=== PATIENT | female | born 1950 | race Caucasian/White ===

== ENCOUNTER 2016-07-02 07:45 | Emergency (ER) | payer MEDICARE ==
[2016-07-02 08:09] VITALS: RESP 18
[2016-07-02] MEDS: NITROGLYCERIN SL TABS 0.4 MG TAB SUBLINGUAL STA ×2 (08:09→08:14)
[2016-07-02 08:27] LABS: Basophils % (A) 1 %; CH 28.9; CHCM 32.7; Eosinophils # (A) 0.1 k/uL (0-0.7); Eosinophils % (A) 3 %; HCT 41.9 % (34.0-46.0); HDW 2.33; HGB 13.9 gm/dL (11.4-16.0); Luc # (Auto) 0.12; Luc % (Auto) 2; Lymphocytes # (A) 1.2 k/uL (1.0-4.8); Lymphocytes % (A) 24 %; MCH 29.4 pg (25.0-35.0); MCHC 33.2 g/dL (31.0-37.0); MCV 88.8 fL (80.0-100.0); Monocytes # (A) 0.4 k/uL (0-1.0); Monocytes % (A) 7 %; Neutrophils # (A) 3.2 k/uL (1.3-7.7); Neutrophils % (A) 63 %; RBC 4.72 m/uL (3.80-5.40); RDW 13.7 % (11.5-15.5); WBC (Perox) 5.02
--- NOTE | 2016-07-02 08:30 | XR ---
EXAMINATION TYPE: XR chest 2V DATE OF EXAM: 07/02/2016 8:26 AM HISTORY: Chest Pain. REFERENCE: Previous study dated 12/24/2013. FINDINGS: The lungs are clear. Pleural spaces are clear. The heart is not enlarged. IMPRESSION: NO ACTIVE INTRATHORACIC DISEASE.
[2016-07-02 08:38] LABS: ALT 28 U/L (9-52); AST 27 U/L (14-36); Alkaline Phosphatase 74 U/L (38-126); Anion Gap 10 mmol/L; Blood Urea Nitrogen 26 mg/dL (7-17); Calcium 9.5 mg/dL (8.4-10.2); Carbon Dioxide 26 mmol/L (22-30); Chloride 108 mmol/L (98-107); Glucose 92 mg/dL (74-99); Magnesium 1.9 mg/dL (1.6-2.3); Non-African American GFR(MDRD) >60 (>60 ml/min/1.73 sqM); Potassium 4.3 mmol/L (3.5-5.1); Sodium 144 mmol/L (137-145); Total Bilirubin 0.6 mg/dL (0.2-1.3); Total Protein 7.1 g/dL (6.3-8.2)
[2016-07-02 08:44] LABS: Prothrombin Time 10.2 sec (9.0-12.0)
[2016-07-02 08:58] LABS: Creatine Kinase 48 U/L (30-135)
[2016-07-02 09:11] LABS: Creatine Kinase MB 0.4 ng/mL (0.0-2.4); Troponin I <0.012 ng/mL (0.000-0.034)
--- NOTE | 2016-07-02 09:15 | ED ---
Chest Pain HPI - General Chief Complaint: Chest Pain Stated Complaint: chest pain Time Seen by Provider: 07/02/16 07:55 Source: patient, RN notes reviewed Mode of arrival: wheelchair Limitations: no limitations - History of Present Illness Initial Comments: This is a 66-year-old female who presents with complaints of some left-sided chest pain. She states she was working out in her garden a lot recently the pain is dull she points to the left costochondral margin she denies any cough fevers chills sweats other symptoms pain is get worse with movement of her extremities. She has no known history of heart disease she is a nonsmoker. Pain is 3-4/10 in severity. No family history of early heart disease. MD Complaint: chest pain - Related Data Home Medications Medication Instructions Recorded Confirmed Cholecalciferol [Vitamin D3] 1,000 unit PO DAILY 07/02/16 07/02/16 Cinnamon Bark [Cinnamon] 500 mg PO DAILY 07/02/16 07/02/16 L.acidoph,Paracasei, B.lactis 1 cap PO DAILY 07/02/16 07/02/16 [Probiotic] [place]-3 Fatty Acids/Fish Oil [Fish 1 cap PO DAILY 07/02/16 07/02/16 Oil 1,000 mg Capsule] Ubidecarenone [Co Q-10] 100 mg PO DAILY 07/02/16 07/02/16 Vitamin B Complex 1 cap PO DAILY 07/02/16 07/02/16 Previous Rx's Medication Instructions Recorded Cyclobenzaprine [Flexeril] 10 mg PO TID #14 tab 07/02/16 Ibuprofen [Motrin] 800 mg PO Q6HR PRN #20 tab 07/02/16 Allergies Allergy/AdvReac Type Severity Reaction Status Date / Time No Known Allergies Allergy Verified 07/02/16 08:08 Review of Systems ROS Statement: Those systems with pertinent positive or pertinent negative responses have been documented in the HPI. ROS Other: All systems not noted in ROS Statement are negative. EKG Findings - EKG Results: EKG: interpreted by EDGARDO, sinus rhythm (Sinus rhythm rate 99627 QRS of 150 daily since QTC of 462/44 there is a left bundle-branch block pattern no acute ST-T wave changes patient states she does have a known bundle-branch block.) Past Medical History Past Medical History: No Reported History, GERD/Reflux History of Any Multi-Drug Resistant Organisms: None Reported Past Surgical History: Tonsillectomy Additional Past Surgical History / Comment(s): bilateral catarac implants Past Anesthesia/Blood Transfusion Reactions: No Reported Reaction Additional Past Anesthesia/Blood Transfusion Reaction / Comment(s): Never had blood transfusion Past Psychological History: No Psychological Hx Reported Smoking Status: Former smoker Past Alcohol Use History: None Reported Past Drug Use History: None Reported - Past Family History Mother Family Medical History: Coronary Artery Disease (CAD) Additional Family Medical History / Comment(s): CABG General Exam - General Exam Comments Initial Comments: This is a well-developed well-nourished awake alert oriented x 3 female Limitations: no limitations General appearance: alert, in no apparent distress Head exam: Present: atraumatic, normocephalic, normal inspection Eye exam: Present: normal appearance, PERRL, EOMI. Absent: scleral icterus, conjunctival injection, periorbital swelling ENT exam: Present: normal exam, mucous membranes moist Neck exam: Present: normal inspection. Absent: tenderness, meningismus, lymphadenopathy Respiratory exam: Present: normal lung sounds bilaterally, chest wall tenderness (Some mild discomfort over left costochondral margin). Absent: respiratory distress, wheezes, rales, rhonchi, stridor Cardiovascular Exam: Present: regular rate, normal rhythm, normal heart sounds. Absent: systolic murmur, diastolic murmur, rubs, gallop, clicks GI/Abdominal exam: Present: soft, normal bowel sounds. Absent: distended, tenderness, guarding, rebound, rigid Extremities exam: Present: normal inspection, full ROM, normal capillary refill. Absent: tenderness, pedal edema, joint swelling, calf tenderness Back exam: Present: normal inspection Neurological exam: Present: alert, oriented X3, CN II-XII intact Psychiatric exam: Present: normal affect, normal mood Skin exam: Present: warm, dry, intact, normal color. Absent: rash Course Vital Signs 07/02/16 07/02/16 07/02/16 07:46 08:08 08:13 Temperature 97.1 F L Pulse Rate 67 61 70 Respiratory 17 18 18 Rate Blood Pressure 189/74 168/77 168/81 O2 Sat by Pulse 98 98 96 Oximetry 07/02/16 08:17 Temperature Pulse Rate 68 Respiratory 18 Rate Blood Pressure 138/63 O2 Sat by Pulse 97 Oximetry Chest Pain MDM - MDM Review the x-ray shows no acute findings. I did review the findings with the patient and her . Patient is feeling somewhat improved she will be discharged presentation is currently consistent with costochondritis. She is follow-up with her doctor return if any problems. Disposition Clinical Impression: Chest wall syndrome, Costalchondritis Disposition: HOME SELF-CARE Condition: Good Instructions: Costochondritis (ED) Prescriptions: Cyclobenzaprine [Flexeril] 10 mg PO TID #14 tab Ibuprofen [Motrin] 800 mg PO Q6HR PRN #20 tab PRN Reason: Pain Referrals: Jesse Combs DO [Primary Care Provider] - 1-2 days
[2016-07-02 10:14] VITALS: BP 159/70; PULSE 54; TEMP 97.9
== END 2016-07-02 10:14 | disposition home or self-care (01) ==
LOC: EC 07:45
DX: M94.0 Chondrocostal junction syndrome [Tietze] (principal); R07.9 Chest pain, unspecified; Z87.891 Personal history of nicotine dependence; Z79.899 Other long term (current) drug therapy; Z82.49 Family history of ischemic heart disease and other diseases of the circulatory system
CPT/HCPCS: 36415; 71020; 80053; 82550; 82553; 83735; 84484; 85025; 85379; 85610; 85730; 93005; 99285

== ENCOUNTER 2016-08-07 12:49 | Emergency (ER) | payer MEDICARE ==
--- NOTE | 2016-08-07 13:36 | ED ---
Extremity Problem HPI - General Chief complaint: Extremity Problem,Nontraumatic Stated complaint: Foot pain Time Seen by Provider: 08/07/16 13:06 Source: patient Mode of arrival: ambulatory Limitations: no limitations - History of Present Illness Initial comments: Patient is a 66-year-old female presenting to the emergency department with complaints of left foot pain, swelling, and erythema. Patient states that one week ago she developed a prutitid rash in between her toes on her left foot. Patient states that the symptoms became worse with redness and swelling and she went to [facility] yesterday. Patient states she was diagnosed with tinea pedis and troponin X along with an antifungal cream. Patient states she started antibiotics at 2 PM yesterday. Patient states that today the redness and swelling of her left foot have gotten slightly worse progressing up her left foot. Patient states it hurts to ambulate. Patient is currently rating pain 5 out of 10. Patient describes pain as an ache and itching. Patient denies chills, fevers, nausea, vomiting, shortness of breath, abdominal pain, numbness or tingling. Patient denies similar symptoms in the past. MD Complaint: extremity pain, extremity swelling - Related Data Home Medications Medication Instructions Recorded Confirmed Cholecalciferol [Vitamin D3] 1,000 unit PO DAILY 07/02/16 07/02/16 Cinnamon Bark [Cinnamon] 500 mg PO DAILY 07/02/16 07/02/16 L.acidoph,Paracasei, B.lactis 1 cap PO DAILY 07/02/16 07/02/16 [Probiotic] [place]-3 Fatty Acids/Fish Oil [Fish 1 cap PO DAILY 07/02/16 07/02/16 Oil 1,000 mg Capsule] Ubidecarenone [Co Q-10] 100 mg PO DAILY 07/02/16 07/02/16 Vitamin B Complex 1 cap PO DAILY 07/02/16 07/02/16 Previous Rx's Medication Instructions Recorded Cyclobenzaprine [Flexeril] 10 mg PO TID #14 tab 07/02/16 Ibuprofen [Motrin] 800 mg PO Q6HR PRN #20 tab 07/02/16 Allergies Allergy/AdvReac Type Severity Reaction Status Date / Time No Known Allergies Allergy Verified 08/07/16 13:05 Review of Systems ROS Statement: Those systems with pertinent positive or pertinent negative responses have been documented in the HPI. ROS Other: All systems not noted in ROS Statement are negative. Past Medical History Past Medical History: No Reported History, GERD/Reflux, Osteoarthritis (OA) History of Any Multi-Drug Resistant Organisms: None Reported Past Surgical History: Tonsillectomy Additional Past Surgical History / Comment(s): bilateral catarac implants Past Anesthesia/Blood Transfusion Reactions: No Reported Reaction Additional Past Anesthesia/Blood Transfusion Reaction / Comment(s): Never had blood transfusion Past Psychological History: No Psychological Hx Reported Smoking Status: Former smoker Past Alcohol Use History: Daily Past Drug Use History: None Reported - Past Family History Mother Family Medical History: Coronary Artery Disease (CAD) Additional Family Medical History / Comment(s): CABG General Exam - General Exam Comments Initial Comments: GENERAL: Pt awake and alert, well-appearing, well-nourished, and in no acute distress. HEAD: Atraumatic, normocephalic. EYES: Pupils equal, round, and reactive to light, extraocular movements intact, sclera anicteric, conjunctiva are normal. ENT: Oropharynx clear without exudates. Moist mucous membranes. NECK:Normal range of motion, supple without lymphadenopathy. LUNGS: Breath sounds clear to auscultation bilaterally. No wheezes, rales, or rhonchi. HEART: Heart S1, S2, no S3 or S4. Regular rate and rhythm. No murmurs, rubs or gallops. ABDOMEN: Soft, nontender, nondistended, normoactive bowel sounds. No guarding, no rebound. No masses or organomegaly appreciated. Left lower extremity: Full range of motion. Erythema, swelling and tenderness to left foot especially to third and fourth toe on left foot progressing up to mid foot. Sensation grossly intact. No calf tenderness. No cyanosis. NEUROLOGICAL: Pt oriented x 3. No focal deficits noted. Strength and sensation grossly intact. PSYCH: Normal mood, normal affect. SKIN: Warm, dry, intact. Normal turgor. Limitations: no limitations Left Foot/Toe exam: Present: full ROM, tenderness, swelling, erythema. Absent: abrasion, laceration, ecchymosis, deformity, dislocation, foreign body, calcaneal tenderness, tenderness at base of 5th metatarsal, nail avulsion, subungual hematoma Neurovascular tendon exam: Present: no vascular compromise. Absent: pulse deficit, abnormal cap refill, motor deficit, sensory deficit, tendon deficit, extremity cold to touch, pallor, foot drop, significant pain with passive ROM of distal joint Course Vital Signs 08/07/16 13:02 Temperature 97.5 F L Pulse Rate 84 Respiratory 16 Rate Blood Pressure 135/64 O2 Sat by Pulse 97 Oximetry Medical Decision Making - Medical Decision Making Cellulitis to left foot. X-ray of left foot with evidence of diffuse soft tissue swelling with no acute fracture, subluxation, or dislocation. Patient instructed to continue Keflex and Bactrim, elevate left lower extremity, continue Tylenol or Motrin for pain. Patient instructed to return to the emergency department if swelling and redness do not improve or get worse in next 24 hours. Cellulitis outlined with marker prior to discharge. Discharge instructions and return parameters reviewed. - Radiology Data Radiology results: report reviewed X-ray left foot: Diffuse soft tissue swelling of the foot best seen on the lateral view. No acute fracture, subluxation, or dislocation. Tiny plantar calcaneal spur. Disposition Clinical Impression: Cellulitis of left foot Disposition: HOME SELF-CARE Condition: Good Instructions: Cellulitis (ED) Additional Instructions: Continue Keflex and Bactrim as previously prescribed. Elevate left lower extremity as much as possible. Continue Tylenol or Motrin for pain. Please return to the emergency department if swelling and redness did not improve, fevers, nausea, vomiting, or any other symptoms in next 24 hours. Follow-up with primary care physician as directed. Referrals: Jesse Combs DO [Primary Care Provider] - 1-2 days Time of Disposition: 13:59
--- NOTE | 2016-08-07 13:41 | XR ---
EXAMINATION TYPE: XR foot complete LT DATE OF EXAM: 08/07/2016 COMPARISON: NONE HISTORY: 66-year-old female with painful and swollen foot since yesterday TECHNIQUE: 3 views FINDINGS: Diffuse soft tissue swelling of the foot best seen on the lateral view. No acute fracture, subluxatio n, or dislocation. Tiny plantar calcaneal spur. IMPRESSION: Diffuse soft tissue swelling best seen on the lateral view. No acute osseous abnormality seen.
[2016-08-07 14:09] VITALS: BP 128/80; PULSE 80; RESP 18; TEMP 97.8
== END 2016-08-07 14:09 | disposition home or self-care (01) ==
LOC: EC 12:49
DX: L03.116 Cellulitis of left lower limb (principal); M19.90 Unspecified osteoarthritis, unspecified site; Z87.891 Personal history of nicotine dependence; Z79.899 Other long term (current) drug therapy
CPT/HCPCS: 99283

== ENCOUNTER 2016-08-12 08:35 | Inpatient (IN) | payer MEDICARE ==
[2016-08-12] MEDS ORDERED: SODIUM CHLORIDE 0.9% 1,000 ML IV STA (08:47)
[2016-08-12] MEDS ORDERED: methylPREDNISolone SOD SUCCI 125 MG/2 ML VIAL IV STA (08:47)
[2016-08-12] MEDS ORDERED: diphenhydrAMINE 50 MG/ML 1 ML VIAL IVP STA (08:47)
[2016-08-12] MEDS ORDERED: FAMOTIDINE 20 MG/2 ML VIAL IV STA (08:48)
--- NOTE | 2016-08-12 08:52 | ED ---
Skin/Abscess/FB HPI - General Chief complaint: Skin/Abscess/Foreign Body Stated complaint: Rash/ allergic reaction to new medication Time Seen by Provider: 08/12/16 08:42 Source: patient, RN notes reviewed Mode of arrival: ambulatory Limitations: no limitations - History of Present Illness Initial comments: 66-year-old female presents to the emergency department with a chief complaint of ALLERGIC reaction. Patient states she's on Keflex and Bactrim for an infection to her left foot. Patient states that she started these are on of last week and today she woke up with an itchy type rash diffusely over the body. Patient states that she is concerned she may be having a reaction with medications. Patient does not know she's had these medications. Patient states she's also noticed that her cellulitis to his left foot has not improved. Patient states that it is still red and swollen so she thought she should be evaluated for that as well. Patient denies any fever chills with this. Patient states the redness continues to be in her foot and is worse around her middle toe. Patient states she is not currently having any other symptoms of this. Patient denies any history of diabetes. Patient denies any history of MRSA.Patient denies any recent fever, chills, shortness of breath, chest pain, back pain, abdominal pain, nausea vomiting, numbness or tingling, dysuria or hematuria, constipation or diarrhea, headaches or visual changes, or any other current symptoms. - Related Data Home Medications Medication Instructions Recorded Confirmed Cholecalciferol [Vitamin D3] 1,000 unit PO DAILY 07/02/16 08/12/16 Cinnamon Bark [Cinnamon] 500 mg PO DAILY 07/02/16 08/12/16 L.acidoph,Paracasei, B.lactis 1 cap PO DAILY 07/02/16 08/12/16 [Probiotic] [place]-3 Fatty Acids/Fish Oil [Fish 1 cap PO DAILY 07/02/16 08/12/16 Oil 1,000 mg Capsule] Ubidecarenone [Co Q-10] 100 mg PO DAILY 07/02/16 08/12/16 Vitamin B Complex 1 cap PO DAILY 07/02/16 08/12/16 Previous Rx's Medication Instructions Recorded Cyclobenzaprine [Flexeril] 10 mg PO TID #14 tab 07/02/16 Ibuprofen [Motrin] 800 mg PO Q6HR PRN #20 tab 07/02/16 Allergies Allergy/AdvReac Type Severity Reaction Status Date / Time No Known Allergies Allergy Verified 08/12/16 09:37 Review of Systems ROS Statement: Those systems with pertinent positive or pertinent negative responses have been documented in the HPI. ROS Other: All systems not noted in ROS Statement are negative. Past Medical History Past Medical History: GERD/Reflux, Osteoarthritis (OA) History of Any Multi-Drug Resistant Organisms: None Reported Past Surgical History: Tonsillectomy Additional Past Surgical History / Comment(s): bilateral catarac implants Past Anesthesia/Blood Transfusion Reactions: No Reported Reaction Additional Past Anesthesia/Blood Transfusion Reaction / Comment(s): Never had blood transfusion Past Psychological History: No Psychological Hx Reported Smoking Status: Former smoker Past Alcohol Use History: Daily Past Drug Use History: None Reported - Past Family History Mother Family Medical History: Coronary Artery Disease (CAD) Additional Family Medical History / Comment(s): CABG General Exam Limitations: no limitations General appearance: alert, in no apparent distress Eye exam: Present: normal appearance, PERRL, EOMI. Absent: scleral icterus, conjunctival injection, periorbital swelling ENT exam: Present: normal exam, mucous membranes moist Respiratory exam: Present: normal lung sounds bilaterally. Absent: respiratory distress, wheezes, rales, rhonchi, stridor Cardiovascular Exam: Present: regular rate, normal rhythm, normal heart sounds. Absent: systolic murmur, diastolic murmur, rubs, gallop, clicks Extremities exam: Present: full ROM, normal capillary refill, pedal edema (To the left foot). Absent: normal inspection (Patient does appear to have swelling and redness to the left foot with associated wound to the left third digit.), tenderness, calf tenderness Neurological exam: Present: alert, oriented X3 Psychiatric exam: Present: normal affect, normal mood Skin exam: Present: warm, dry, intact, urticaria (Diffuse) Course Vital Signs 08/12/16 08:36 Temperature 97.7 F Pulse Rate 100 Respiratory 16 Rate Blood Pressure 133/77 O2 Sat by Pulse 98 Oximetry Medical Decision Making - Medical Decision Making 66-year-old female presents for appears to be worsening left foot cellulitis that she has been on outpatient for 5 days with no improvement as well as ALLERGIC reaction hives-type reaction to the body. At this time due to the fact that the patient's foot continues to be red and swollen following antibiotics for 5 days and will admit for failed outpatient treatment. The patient on Vanco. This is discussed the patient who is in agreement with the plan. All questions have been answered at this time. - Lab Data Result diagrams: 08/12/16 09:07 08/12/16 09:07 Lab Results 08/12/16 08/12/16 Range/Units 09:07 09:07 WBC 4.7 (3.8-10.6) k/uL RBC 5.04 (3.80-5.40) m/uL Hgb 15.0 (11.4-16.0) gm/dL Hct 44.2 (34.0-46.0) % MCV 87.6 (80.0-100.0) fL MCH 29.8 (25.0-35.0) pg MCHC 34.0 (31.0-37.0) g/dL RDW 13.9 (11.5-15.5) % Plt Count 223 (150-450) k/uL Neutrophils % 76 % Lymphocytes % 10 % Monocytes % 5 % Eosinophils % 7 % Basophils % 0 % Neutrophils # 3.6 (1.3-7.7) k/uL Lymphocytes # 0.5 L (1.0-4.8) k/uL Monocytes # 0.3 (0-1.0) k/uL Eosinophils # 0.3 (0-0.7) k/uL Basophils # 0.0 (0-0.2) k/uL Sodium 142 (137-145) mmol/L Potassium 4.9 (3.5-5.1) mmol/L Chloride 108 H (98-107) mmol/L Carbon Dioxide 22 (22-30) mmol/L Anion Gap 12 mmol/L BUN 22 H (7-17) mg/dL Creatinine 1.06 H (0.52-1.04) mg/dL Est GFR (MDRD) Af Amer >60 (>60 ml/min/1.73 sqM) Est GFR (MDRD) Non-Af 52 (>60 ml/min/1.73 sqM) Glucose 90 (74-99) mg/dL Calcium 9.3 (8.4-10.2) mg/dL Total Bilirubin 0.6 (0.2-1.3) mg/dL AST 21 (14-36) U/L ALT 29 (9-52) U/L Alkaline Phosphatase 95 (38-126) U/L Total Protein 7.4 (6.3-8.2) g/dL Albumin 4.4 (3.5-5.0) g/dL - Radiology Data Radiology results: report reviewed, image reviewed Disposition Clinical Impression: Cellulitis of left foot, Failure of outpatient treatment, Medication reaction Disposition: ADMITTED IP TO THIS [facility] Condition: Stable Referrals: Jesse Combs DO [Primary Care Provider] - 1-2 days Time of Disposition: 09:47 Decision Date: 08/12/16 Decision Time: 09:47
[2016-08-12 09:31] LABS: Basophils % (A) 0 %; CH 29.1; CHCM 33.4; Eosinophils # (A) 0.3 k/uL (0-0.7); Eosinophils % (A) 7 %; HCT 44.2 % (34.0-46.0); HDW 2.41; Luc % (Auto) 2; Lymphocytes # (A) 0.5 k/uL (1.0-4.8); Lymphocytes % (A) 10 %; MCH 29.8 pg (25.0-35.0); MCV 87.6 fL (80.0-100.0); Mean Platelet Volume 7.2; Monocytes # (A) 0.3 k/uL (0-1.0); Monocytes % (A) 5 %; Neutrophils # (A) 3.6 k/uL (1.3-7.7); Neutrophils % (A) 76 %; RBC 5.04 m/uL (3.80-5.40); RDW 13.9 % (11.5-15.5); WBC 4.7 k/uL (3.8-10.6); WBC (Perox) 4.47
[2016-08-12 09:39] LABS: ALT 29 U/L (9-52); AST 21 U/L (14-36); Alkaline Phosphatase 95 U/L (38-126); Anion Gap 12 mmol/L; Blood Urea Nitrogen 22 mg/dL (7-17); Calcium 9.3 mg/dL (8.4-10.2); Carbon Dioxide 22 mmol/L (22-30); Chloride 108 mmol/L (98-107); Glucose 90 mg/dL (74-99); Non-African American GFR(MDRD) 52 (>60 ml/min/1.73 sqM); Potassium 4.9 mmol/L (3.5-5.1); Sodium 142 mmol/L (137-145); Total Bilirubin 0.6 mg/dL (0.2-1.3); Total Protein 7.4 g/dL (6.3-8.2)
--- NOTE | 2016-08-12 09:40 | XR ---
EXAMINATION TYPE: XR foot complete LT DATE OF EXAM: 08/12/2016 COMPARISON: 08/07/2016 HISTORY: Swelling and redness TECHNIQUE: 3 views FINDINGS: There is a plantar calcaneal spur. Metatarsals appear intact. I see no fracture nor disloca tion. IMPRESSION: No acute abnormality of the left foot. No change.
[2016-08-12] MEDS ORDERED: IV VANCOMYCIN PER PHARMACY 1 EACH MISC MISCELLANE PRN (09:46)
[2016-08-12] MEDS ORDERED: KETOROLAC 30 MG/ML 1 ML VIAL IVP PRN (09:47)
[2016-08-12] MEDS ORDERED: ACETAMINOPHEN TAB 325 MG TAB PO PRN (09:47)
[2016-08-12] MEDS ORDERED: IBUPROFEN 400 MG TAB PO PRN (09:47)
[2016-08-12] MEDS ORDERED: NALOXONE 0.4 MG/ML 1 ML VIAL IV PRN (09:47)
[2016-08-12] MEDS ORDERED: VANCOMYCIN 1,750 MG in SODIUM CHLORIDE 0.9% 250 ML IVPB ONE (10:30)
[2016-08-12] MEDS: SODIUM CHLORIDE 0.9% 1,000 ML IV SCH ×2 (10:34→20:41)
[2016-08-12 12:51] VITALS: BMI 31.4
--- NOTE | 2016-08-12 16:44 | P.HPIM ---
History of Present Illness H&P Date: 08/12/16 Chief Complaint: Rash This is a 66-year-old patient of Dr. Combs. Chronic stable medical conditions include osteoarthritis, GERD. Patient about 8 days ago notice some redness of the left foot involving couple of toes patient did go and see the physician [facility], was prescribed Bactrim and patient notice some swelling of the foot and that has had the slight rash in the buttock area and upper chest, but no fever and or shortness of breath no wheezing. Also patient bumped her left foot third toe and then became a bit red. Patient has discomfort but no severe pain in the left foot. Hence patient presented to the ER where Patient started on vancomycin . Patient does walk on the deck the foot exposed sometime in slippers, not sure if an insect may have bitten her. Past medical history GERD, osteoarthritis Review of Systems GEN.: Tired EYES: None HEENT: None NECK: None RESPIRATORY: None CARDIOVASCULAR: None GASTROINTESTINAL: GERD GENITOURINARY: None MUSCULOSKELETAL: Pain in the joints LYMPHATICS: None HEMATOLOGICAL: None PSYCHIATRY: None NEUROLOGICAL: None DERMATOLOGICAL: As above Past Medical History Past Medical History: GERD/Reflux, Osteoarthritis (OA) Additional Past Medical History / Comment(s): chronic back pain. 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 Smoking Status: Never smoker - Past Family History Mother Family Medical History: Coronary Artery Disease (CAD) Additional Family Medical History / Comment(s): CABG Medications and Allergies Home Medications Medication Instructions Recorded Confirmed Type Cholecalciferol [Vitamin D3] 1,000 unit PO DAILY 07/02/16 08/12/16 History Cinnamon Bark [Cinnamon] 500 mg PO DAILY 07/02/16 08/12/16 History L.acidoph,Paracasei, B.lactis 1 cap PO DAILY 07/02/16 08/12/16 History [Probiotic] [place]-3 Fatty Acids/Fish Oil [Fish 1 cap PO DAILY 07/02/16 08/12/16 History Oil 1,000 mg Capsule] Ubidecarenone [Co Q-10] 100 mg PO DAILY 07/02/16 08/12/16 History Vitamin B Complex 1 cap PO DAILY 07/02/16 08/12/16 History Cephalexin [Keflex] 500 mg PO TID 08/12/16 08/12/16 History Cyclobenzaprine [Flexeril] 10 mg PO TID PRN 08/12/16 08/12/16 History Sulfamethox-Tmp 800-160Mg [Bactrim 1 tab PO Q12HR 08/12/16 08/12/16 History DS 800-160 mg] Allergies Allergy/AdvReac Type Severity Reaction Status Date / Time No Known Allergies Allergy Verified 08/12/16 09:37 Physical Exam VITAL SIGNS: 96.1, 81, 16, 140/67, 99% room air GENERAL: Average built BMI 31.4, laying in bed, comfortable. EYES: Pupils equal. Conjunctiva normal. HEENT: External appearance of nose and ears normal, oral cavity grossly normal. NECK: JVD not raised; masses not palpable. HEART: First and second heart sounds are normal; no edema. LUNGS: Respiratory rate normal; clear to auscultation. ABDOMEN: Soft, nontender, liver spleen not palpable, no masses palpable. LYMPHATICS: No lymph nodes palpable in the axilla and neck. PSYCH: Alert and oriented x3; mood and affect normal. NEUROLOGICAL: Cranial nerves grossly intact; no facial asymmetry, power and sensation grossly intact. DERMATOLOGICAL: Patient's skin was examined in the presense of the cyber policy and strategy planner nurse patient was noted to have rash on the buttock area superficial rash on lower extremity upper torso the not too dense. Patient's left foot third toe is noted to be red with localized area of injury noted also on the plantar service the skin is broken down and into of the adjoining area Results CBC & Chem 7: 08/12/16 09:07 08/12/16 09:07 Labs: Abnormal Lab Results - Last 24 Hours (Table) 08/12/16 08/12/16 Range/Units 09:07 09:07 Lymphocytes # 0.5 L (1.0-4.8) k/uL Chloride 108 H (98-107) mmol/L BUN 22 H (7-17) mg/dL Creatinine 1.06 H (0.52-1.04) mg/dL Assessment and Plan Plan: Assessment: -Acute localized cellulitis of the left third toe from local trauma and also is got patient could've broken skin on the plantar service that may be source of infection. -Mildly ALLERGIC reaction could be due to the sulfa component of Bactrim, not compromising patient's breathing or swallowing -chronic GERD -Primary osteoarthritis in multiple joints bilateral -Obesity BMI 31.4 Plan: Start an IV vancomycin, patient being given topical bacitracin and Kerlix dressing. For the ALLERGIC reaction we'll start the patient on Pepcid, Benadryl and oral prednisone. Care was discussed with the patient in detail .s also give DVT prophylaxis in the form of Lovenox
[2016-08-12] MEDS: predniSONE 20 MG TAB PO SCH (17:10)
[2016-08-12] MEDS: ENOXAPARIN 40 MG/0.4 ML SYRINGE SQ SCH (17:10)
[2016-08-12] MEDS: BACITRACIN 500 UNIT/GM OINT 28.4 GM TUBE TOPICAL SCH (17:10)
[2016-08-12] MEDS: MELATONIN 3 MG TABLET PO SCH (20:39)
[2016-08-12] MEDS: diphenhydrAMINE 25 MG CAP PO SCH (20:40)
[2016-08-12] MEDS: FAMOTIDINE 20 MG TAB PO SCH (20:40)
[2016-08-13] MEDS ORDERED: VANCOMYCIN 1,500 MG in SODIUM CHLORIDE 0.9% 250 ML IVPB SCH ×2
[2016-08-13] MEDS: SODIUM CHLORIDE 0.9% 1,000 ML IV SCH ×2 (05:46→17:00)
[2016-08-13 07:12] LABS: Basophils % (A) 0 %; CH 28.8; CHCM 32.7; Eosinophils % (A) 0 %; HCT 37.7 % (34.0-46.0); HDW 2.42; HGB 12.7 gm/dL (11.4-16.0); Luc # (Auto) 0.09; Luc % (Auto) 1; Lymphocytes # (A) 0.9 k/uL (1.0-4.8); Lymphocytes % (A) 10 %; MCH 29.7 pg (25.0-35.0); MCHC 33.7 g/dL (31.0-37.0); MCV 88.4 fL (80.0-100.0); Mean Platelet Volume 6.8; Monocytes # (A) 0.3 k/uL (0-1.0); Monocytes % (A) 3 %; Neutrophils # (A) 7.5 k/uL (1.3-7.7); Neutrophils % (A) 86 %; RBC 4.27 m/uL (3.80-5.40); RDW 13.9 % (11.5-15.5); WBC 8.8 k/uL (3.8-10.6); WBC (Perox) 8.87
[2016-08-13 07:19] VITALS: RESP 16
[2016-08-13 07:26] LABS: ALT 23 U/L (9-52); AST 16 U/L (14-36); Alkaline Phosphatase 77 U/L (38-126); Anion Gap 9 mmol/L; Blood Urea Nitrogen 18 mg/dL (7-17); Calcium 8.9 mg/dL (8.4-10.2); Carbon Dioxide 21 mmol/L (22-30); Chloride 114 mmol/L (98-107); Glucose 114 mg/dL (74-99); Non-African American GFR(MDRD) >60 (>60 ml/min/1.73 sqM); Potassium 4.3 mmol/L (3.5-5.1); Sodium 144 mmol/L (137-145); Total Bilirubin 0.4 mg/dL (0.2-1.3); Total Protein 6.1 g/dL (6.3-8.2)
[2016-08-13] MEDS: predniSONE 20 MG TAB PO SCH (08:15)
[2016-08-13] MEDS: diphenhydrAMINE 25 MG CAP PO SCH ×2 (08:15→22:02)
[2016-08-13] MEDS: ENOXAPARIN 40 MG/0.4 ML SYRINGE SQ SCH (08:15)
[2016-08-13] MEDS: FAMOTIDINE 20 MG TAB PO SCH ×2 (08:15→22:02)
[2016-08-13] MEDS: BACITRACIN 500 UNIT/GM OINT 28.4 GM TUBE TOPICAL SCH (08:15)
[2016-08-13] MEDS: VANCOMYCIN 1,500 MG in SODIUM CHLORIDE 0.9% 250 ML IVPB SCH ×2 (11:24→23:54)
--- NOTE | 2016-08-13 18:06 | P.PN ---
<Shanon Lomeli - Last Filed: 08/13/16 19:30> Progress Note - Text DATE OF SERVICE: 08/13/2016 PRESENTING COMPLAINT: Rash INTERVAL HISTORY: 66-year-old patient who presented with left foot pain. Today, patient lying in bed, appears comfortable, tolerating her diet, ambulatory to and from the bathroom, states left foot feels better. REVIEW OF SYSTEMS: Done for constitutional ,cardiovascular, GI, pulmonary with relevant findings as above. CURRENT MEDICATIONS Vancomycin, Lovenox, Benadryl, prednisone. PHYSICAL EXAM VITAL SIGNS: Temperature 97.7, pulse 90, respirations 16, blood pressure 133/77, oxygen saturation 98% on room air. GENERAL APPEARANCE: Lying in bed, not in distress. EYES: Pupils equal. Conjunctiva normal. NECK: JVD not raised. Mass not palpable. RESPIRATORY: Respiratory effort normal. Lungs clear to auscultation. CARDIOVASCULAR: First and second sounds normal. No edema. ABDOMEN: Soft. Liver and spleen not palpable. No tenderness. No mass palpable. PSYCHIATRY: Alert and oriented x3. Mood and affect normal. DERMATOLOGIC: Superficial rash is greatly improved. Left foot third toe red, wound noted to plantar surface, breakdown noted between toes. INVESTIGATIONS: CBC and BMP unremarkable Blood cultures negative for 24 hours ASSESSMENT: Assessment: -Acute localized cellulitis of the left third toe from local trauma and also is got patient could've broken skin on the plantar service that may be source of infection. -Mildly ALLERGIC reaction could be due to the sulfa component of Bactrim, not compromising patient's breathing or swallowing -chronic GERD -Primary osteoarthritis in multiple joints bilateral -Obesity BMI 31.4 PLAN: Continue current medication and treatment plan for the ALLERGIC reaction as well as the left foot injury. Plan of care discussed with the patient, discharge planning the next 24-48 hours. CARTOONIST SPECIAL EFFECTS statement: Patient was seen and examined by nurse practitioner Shanon Lomeli and all elements of the case discussed with attending Dr. Iniguez <Michel Iniguez - Last Filed: 08/13/16 19:34> Progress Note - Text Attending note. Date of service-08/13/2016 This patient was seen and examined by me today. I reviewed the note of my nurse practitioner, Ms. Lomeli. Discussed, additional findings as below This is a patient admitted with some cellulitis of the left foot, cause unclear could be local trauma could be insect bite versus from pedicure. Currently on IV vancomycin. Afebrile On examination redness of the left third toe and some breakdown on the plantar aspect as before White count normal Left foot distal cellulitis or so localized to the left third toe and breakdown of skin on the plantar aspect. Patient generalized rash greatly improved felt to be from from the sulfa component of Bactrim. Discussed with Dr. Menard from ID. He will review in 24 hours and go from there. care discussed with the patient. DC normal saline
--- NOTE | 2016-08-13 21:57 | P.CONS ---
History of Present Illness - Reason for Consult Consult date: 08/13/16 Left foot cellulitis Requesting physician: Michel Iniguez - Chief Complaint Left foot infection and a rash - History of Present Illness Patient is a 60 female who did have a pedicure done on 27 July about 10 days later the patient noticed to have swelling and redness on the plantar aspect of her left foot especially involving the left third toe, patient says she went to the [facility] urgent care with the patient has been evaluated diagnosis cellulitis and has been treated with the Bactrim DS and Keflex therapy , patient did mention that by august she noticed some improvement in her swelling and redness however she woke up yesterday morning with a diffuse rash which was itching the patient denies having any tongue swelling or any difficulty breathing with concern for possible allergic reaction she presented into the [facility] ER with the patient has been evaluated by the physician patient did have x-rays of the left foot which did not show any bony changes patient was started on vancomycin and infectious disease was consulted for further recommendation regarding antibiotic therapy. Patient is currently afebrile rashes slightly decreased in intensity denies chest pain shortness breath, or abdominal pain but denies significant pain in the left foot area main symptom to be slight swelling and redness there is no drainage from it and no diarrhea with antibiotic therapy Review of Systems Review of system Constitutional: The patient denies any fever or rigors or chills Eyes: No complaint ENT: No complaint Respiratory: No complaint Cardiovascular: No complaint Gastrointestinal: No complaint Genitourinary: No complaint Musculoskeletal: As per history of present illness Integumentary: As per history of present illness Endocrine : No complaint Psycologial : No complaint Neurological: No complaint. Past Medical History Past Medical History: GERD/Reflux, Osteoarthritis (OA) Additional Past Medical History / Comment(s): chronic back pain. 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 Smoking Status: Never smoker - Past Family History Mother Family Medical History: Coronary Artery Disease (CAD) Additional Family Medical History / Comment(s): CABG Medications and Allergies Home Medications Medication Instructions Recorded Confirmed Type Cholecalciferol [Vitamin D3] 1,000 unit PO DAILY 07/02/16 08/12/16 History Cinnamon Bark [Cinnamon] 500 mg PO DAILY 07/02/16 08/12/16 History L.acidoph,Paracasei, B.lactis 1 cap PO DAILY 07/02/16 08/12/16 History [Probiotic] [place]-3 Fatty Acids/Fish Oil [Fish 1 cap PO DAILY 07/02/16 08/12/16 History Oil 1,000 mg Capsule] Ubidecarenone [Co Q-10] 100 mg PO DAILY 07/02/16 08/12/16 History Vitamin B Complex 1 cap PO DAILY 07/02/16 08/12/16 History Cephalexin [Keflex] 500 mg PO TID 08/12/16 08/12/16 History Cyclobenzaprine [Flexeril] 10 mg PO TID PRN 08/12/16 08/12/16 History Sulfamethox-Tmp 800-160Mg [Bactrim 1 tab PO Q12HR 08/12/16 08/12/16 History DS 800-160 mg] Allergies Allergy/AdvReac Type Severity Reaction Status Date / Time cephalexin [From Keflex] Allergy Rash/Hives Verified 08/13/16 12:48 sulfamethoxazole Allergy Rash/Hives Verified 08/13/16 12:49 [From Bactrim] trimethoprim [From Bactrim] Allergy Rash/Hives Verified 08/13/16 12:49 Physical Exam Vitals: Vital Signs Temp Pulse Pulse Resp BP BP Pulse Ox 08/13/16 07:00 97.5 F L 67 16 121/58 98 08/12/16 23:00 97.4 F L 75 14 139/62 95 08/12/16 15:00 96.6 F L 84 18 147/66 96 08/12/16 12:00 96.1 F L 81 16 140/67 99 08/12/16 11:16 96.1 F L 81 16 140/67 99 08/12/16 10:35 98 F 90 18 164/70 95 08/12/16 08:36 97.7 F 100 16 133/77 98 Intake and Output 08/12/16 08/13/16 08/13/16 22:59 06:59 14:59 Other: # Voids 1 1 # Bowel Movements 0 General: The patient is awake and alert, in no distress. Skin: Generalized maculopapular rash was noted no masses palpable. Eye: Pupils are equal, round and reactive to light, there is normal conjunctiva bilaterally. Ears, nose, mouth and throat: There are moist mucous membranes and no oral lesions. Neck: The neck is supple, there is no thyromegaly. Cardiovascular: S1-S2 regular rate and rhythm. No murmur. Respiratory: Unlabored breathing clear to auscultation bilaterally Gastrointestinal: Soft, non-distended, non-tender abdomen without masses or organomegaly noted. Musculoskeletal: Left foot some swelling and redness , some redness was noticed of the third toe no significant drainage Neurological: There are no obvious motor or sensory deficits. Coordination appears grossly intact. Speech is normal. Psychiatric: Patient is awake and alert and oriented 3, appropriate mood & affect, normal judgment. Results CBC & Chem 7: 08/13/16 06:40 08/13/16 06:40 Labs: Abnormal Lab Results - Last 24 Hours (Table) 08/12/16 08/12/16 08/13/16 Range/Units 09:07 09:07 06:40 Lymphocytes # 0.5 L 0.9 L (1.0-4.8) k/uL Chloride 108 H (98-107) mmol/L Carbon Dioxide (22-30) mmol/L BUN 22 H (7-17) mg/dL Creatinine 1.06 H (0.52-1.04) mg/dL Glucose (74-99) mg/dL Total Protein (6.3-8.2) g/dL Albumin (3.5-5.0) g/dL 08/13/16 Range/Units 06:40 Lymphocytes # (1.0-4.8) k/uL Chloride 114 H (98-107) mmol/L Carbon Dioxide 21 L (22-30) mmol/L BUN 18 H (7-17) mg/dL Creatinine (0.52-1.04) mg/dL Glucose 114 H (74-99) mg/dL Total Protein 6.1 L (6.3-8.2) g/dL Albumin 3.4 L (3.5-5.0) g/dL Assessment and Plan (1) Cellulitis of left foot Status: Acute (2) Medication reaction Status: Acute Plan: 1-patient with left foot cellulitis predominantly the third toe started after a pedicure and failing outpatient Bactrim and Keflex therapy admited to hospital with generalized macular papular rash the patient with no previous history of allergy to antibiotics therapy could have been more likely related to Bactrim however underlying beta-lactam antibiotic allergy cannot be excluded 2-vancomycin pharmacy to dose target trough of 15 to continue. 3-light Martín wrap to the left foot to keep some of the swelling down 4-will reevaluate the patient tomorrow and if she did have overall improvement hopefully will be able to finish therapy with oral clindamycin therapy Thank you for this consultation we will follow this patient along with you Time with Patient: Greater than 30
[2016-08-13] MEDS: MELATONIN 3 MG TABLET PO SCH (22:02)
[2016-08-14 07:23] VITALS: BP 185/77; PULSE 76; TEMP 97.1
[2016-08-14] MEDS: BACITRACIN 500 UNIT/GM OINT 28.4 GM TUBE TOPICAL SCH (09:12)
[2016-08-14] MEDS: diphenhydrAMINE 25 MG CAP PO SCH (09:13)
[2016-08-14] MEDS: predniSONE 20 MG TAB PO SCH (09:13)
[2016-08-14] MEDS: ENOXAPARIN 40 MG/0.4 ML SYRINGE SQ SCH (09:14)
[2016-08-14] MEDS: FAMOTIDINE 20 MG TAB PO SCH (09:14)
--- NOTE | 2016-08-14 10:22 | P.PN ---
Subjective Principal diagnosis: Left foot cellulitis Drug rash The patient is afebrile she is breathing comfortably denies significant chest pain shortness of breath or cough no abdominal pain the rash has decreased in intensity, left foot redness and swelling has improved no drainage Objective - Vital Signs Vital signs: Vital Signs Temp 97.1 F L 08/14/16 07:00 Pulse 76 08/14/16 07:00 Resp 16 08/14/16 07:00 BP 185/77 08/14/16 07:00 Pulse Ox 97 08/14/16 07:00 Intake & Output 08/13/16 08/14/16 08/14/16 18:59 06:59 18:59 Intake Total 1050 1200 Balance 1050 1200 Intake: IV 800 Sodium Chloride 0.9% 1, 800 000 ml @ 100 mls/hr IV . Q10H ANAYELI Rx#:[id number] Intake, IV Titration 250 Amount Vancomycin 1,500 mg In 250 Sodium Chloride 0.9% 250 ml @ 125 mls/hr IVPB Q12H ANAYELI Rx#:[id number] Oral 1200 Other: Voiding Method Toilet # Voids 1 1 - Exam GENERAL DESCRIPTION:[ Patient is awake and alert in no distress] HEENT: [Oral mucosa is dry and no pharyngeal erythema] EYES : [No pallor or scleral icterus] RESPIRATORY SYSTEM: [Unlabored breathing clear to auscultation] CARDIA VASCULAR SYSTEM: [S1-S2 regular rate and rhythm no murmur] GI: [Abdominal soft there's no tenderness no organomegaly] EXTREMITIES: [Left foot swelling has improved she did have a bruise on the plantar aspect no drainage] - Labs CBC & Chem 7: 08/13/16 06:40 08/13/16 06:40 Labs: Microbiology - Last 24 Hours (Table) 08/12/16 09:07 Blood Culture - Preliminary Blood No Growth after 24 hours Assessment and Plan (1) Cellulitis of left foot Status: Acute (2) Medication reaction Status: Acute Plan: 1-patient with left foot cellulitis predominantly the third toe started after a pedicure and failing outpatient Bactrim and Keflex therapy admited to hospital with generalized macular papular rash the patient with no previous history of allergy to antibiotics therapy could have been more likely related to Bactrim however underlying beta-lactam antibiotic allergy cannot be excluded, overall rash has improved with discontinuation of antibiotic and symptomatic treatment 2-Left foot cellulitis improved with vancomycin antibiotic will be switched over to clindamycin 450mg 3 times a day for another 10 days along with an Martín wrap to keep the swelling down and prescription was sent the pharmacy she should be able to go home from infectious disease standpoint today
[2016-08-14] MEDS: VANCOMYCIN 1,500 MG in SODIUM CHLORIDE 0.9% 250 ML IVPB SCH (10:57)
[2016-08-14] MEDS ORDERED: VANCOMYCIN TROUGH DUE 1 EACH MISC MISCELLANE ONE (11:00)
--- NOTE | 2016-08-14 18:49 | P.DS ---
<Shanon Lomeli Rachael - Last Filed: 08/14/16 20:47> Providers Date of admission: 08/12/16 09:49 Expected date of discharge: 08/14/16 Attending physician: Michel Iniguez Consults: 08/12/16 17:59 Consult Physician Routine Consulting Provider: Kenneth George Consult Reason/Comments: left foot infection Do you want consulting provider notified?: Yes [facility] Course: FINAL DIAGNOSES: -Acute localized cellulitis of the left third toe from local trauma and also is got patient could've broken skin on the plantar service that may be source of infection. -Mildly ALLERGIC reaction could be due to the sulfa component of Bactrim, not compromising patient's breathing or swallowing -chronic GERD -Primary osteoarthritis in multiple joints bilateral -Obesity BMI 31.4 HOSPTIAL COURSE: This is a 66-year-old patient who noticed some redness of the left foot involving toes on the left foot. Source of irritation unclear. Patient admits to a recent pedicure versus bumping her foot with a door versus going barefoot on the deck possibly experienced an insect bite. Patient was seen at local urgent care received Bactrim and noticed some continued swelling of left foot as well as a rash in the buttock area and upper chest, no fever or shortness of breath. Patient did bump her left foot third toe and it became continued to become red. Patient continue to have pain in the left foot and the rash that developed after receiving antibiotics from the urgent care therefore was seen in the emergency department was started on vancomycin, steroids and Benadryl. Infectious disease was consulted, blood cultures were drawn, antibiotics, steroids and Benadryl continued. Light Martín wrap added to keep down the swelling. Patient's left foot improved, blood cultures negative, patient responded well to antibiotic, steroid therapy. Patient is ambulatory, tolerating her diet afebrile, has no acute overt symptoms of infection. Therefore patient is stable for discharge. Discussed with patient Hospital course, plan of care, all questions asked and answered to patient's satisfaction. PHYSICAL EXAM: CARDIOVASCULAR: S1-S2 noted, no edema RESPIRATORY: Lung sounds clear to auscultation bilaterally respiratory effort normal GI: Abdomen soft nontender liver and spleen not palpable MUSKULOSKELETAL: Left foot third toe wound to the plantar surface no drainage noted, tender to palpation breakdown noted between toes however healing well. METAL FLOW COORDINATOR STATEMENT: Patient was seen and examined by nurse practitioner Shanon Lomeli in all elements of the case discussed with attending Dr. Iniguez DISOPSITION: Discharge home to the care of her family Pertinent Studies: BLOOD CULTURES: No growth after 48 hours FOOT X-ray: No acute abnormality of the left foot. Plan - Discharge Summary New Discharge Prescriptions: New Clindamycin [Cleocin] 450 mg PO Q8H #30 capsule Melatonin 3 mg PO HS tab Continue Vitamin B Complex 1 cap PO DAILY Ubidecarenone [Co Q-10] 100 mg PO DAILY [place]-3 Fatty Acids/Fish Oil [Fish Oil 1,000 mg Capsule] 1 cap PO DAILY Cinnamon Bark [Cinnamon] 500 mg PO DAILY Cholecalciferol [Vitamin D3] 1,000 unit PO DAILY L.acidoph,Paracasei, B.lactis [Probiotic] 1 cap PO DAILY Ibuprofen [Motrin] 800 mg PO Q6HR PRN #20 tab PRN Reason: Pain Cyclobenzaprine [Flexeril] 10 mg PO TID PRN PRN Reason: Pain Discontinued Sulfamethox-Tmp 800-160Mg [Bactrim DS 800-160 mg] 1 tab PO Q12HR Cephalexin [Keflex] 500 mg PO TID Discharge Medication List Cholecalciferol [Vitamin D3] 1,000 unit PO DAILY 07/02/16 [History] Cinnamon Bark [Cinnamon] 500 mg PO DAILY 07/02/16 [History] Ibuprofen [Motrin] 800 mg PO Q6HR PRN #20 tab 07/02/16 [Rx] L.acidoph,Paracasei, B.lactis [Probiotic] 1 cap PO DAILY 07/02/16 [History] [place]-3 Fatty Acids/Fish Oil [Fish Oil 1,000 mg Capsule] 1 cap PO DAILY [History] Ubidecarenone [Co Q-10] 100 mg PO DAILY 07/02/16 [History] Vitamin B Complex 1 cap PO DAILY 07/02/16 [History] Cyclobenzaprine [Flexeril] 10 mg PO TID PRN 08/12/16 [History] Clindamycin [Cleocin] 450 mg PO Q8H #30 capsule 08/14/16 [Rx] Melatonin 3 mg PO HS tab 08/14/16 [Rx] Follow up Appointment(s)/Referral(s): Jesse Combs DO [Primary Care Provider] - 08/18/16 10:20 am Kenneth George MD [STAFF PHYSICIAN] - 08/28/16 9:45 am Patient Instructions/Handouts: Cellulitis (DC) Activity/Diet/Wound Care/Special Instructions: Continue to use martín wrap to keep swelling down. Discharge Disposition: HOME SELF-CARE <Michel Iniguez - Last Filed: 08/15/16 17:12> Hospital Course: Attending note. Date of service-08/14/2016 This patient was seen and examined by me on 08/14/2016. I reviewed the note of my nurse practitioner, Ms. Lomeli. Discussed with her, additional findings as below Patient admitted with cellulitis of the left third toe and surrounding foot and the rash felt to be from the Bactrim component. Doing much better seen by Dr. george from infectious disease On examination: Decreased redness tenderness of the left septal For more details see my METAL FLOW COORDINATOR discharge summary
== END 2016-08-14 14:39 | disposition home or self-care (01) | DRG 603 ==
LOC: EC 08:35 → 4MS4W 09:49
PROVIDERS: ADMIT Hospitalist; ATTEND Hospitalist
DX: L03.032 Cellulitis of left toe (principal); L03.116 Cellulitis of left lower limb; M19.91 Primary osteoarthritis, unspecified site; K21.9 Gastro-esophageal reflux disease without esophagitis; G89.29 Other chronic pain; M54.9 Dorsalgia, unspecified; E66.9 Obesity, unspecified; L27.0 Generalized skin eruption due to drugs and medicaments taken internally; T49.0X5A Adverse effect of local antifungal, anti-infective and anti-inflammatory drugs, initial encounter; Z79.899 Other long term (current) drug therapy
CPT/HCPCS: 36415; 80053; 83605; 85025; 87040; 93005

== ENCOUNTER → 2017-02-05 | Outpatient (CLI) | payer MEDICARE ==
[2017-02-05 10:07] LABS: Appearance,Urine Clear (Clear); Bilirubin,Urine Negative (Negative); Glucose,Urine (UA) Negative (Negative); Ketones,Urine Negative (Negative); Leukocyte Esterase,Urine Negative (Negative); Nitrite,Urine Negative (Negative); Protein,Urine Negative (Negative); Specific Gravity,Urine 1.019 (1.001-1.035); UA Billing (MACRO vs. MICRO) CHEM; Urobilinogen,Urine <2.0 mg/dL (<2.0)
[2017-02-05 10:15] LABS: Basophils % (A) 0 %; CH 28.8; CHCM 32.4; Eosinophils # (A) 0.1 k/uL (0-0.7); Eosinophils % (A) 1 %; HDW 2.32; HGB 14.3 gm/dL (11.4-16.0); Luc # (Auto) 0.13; Luc % (Auto) 2; Lymphocytes # (A) 2.2 k/uL (1.0-4.8); Lymphocytes % (A) 31 %; MCH 27.8 pg (25.0-35.0); MCHC 31.2 g/dL (31.0-37.0); MCV 89.1 fL (80.0-100.0); Mean Platelet Volume 6.8; Monocytes # (A) 0.5 k/uL (0-1.0); Monocytes % (A) 7 %; Neutrophils # (A) 4.3 k/uL (1.3-7.7); Neutrophils % (A) 59 %; RBC 5.17 m/uL (3.80-5.40); RDW 13.5 % (11.5-15.5); WBC 7.2 k/uL (3.8-10.6); WBC (Perox) 7.49
[2017-02-05 10:24] LABS: ALT 31 U/L (9-52); AST 15 U/L (14-36); Alkaline Phosphatase 72 U/L (38-126); Anion Gap 8 mmol/L; Blood Urea Nitrogen 27 mg/dL (7-17); Calcium 9.9 mg/dL (8.4-10.2); Carbon Dioxide 30 mmol/L (22-30); Chloride 102 mmol/L (98-107); Cholesterol 181 mg/dL (<200); Glucose 99 mg/dL (74-99); HDL Cholesterol 87 mg/dL (40-60); Non-African American GFR(MDRD) >60 (>60 ml/min/1.73 sqM); Potassium 4.3 mmol/L (3.5-5.1); Sodium 140 mmol/L (137-145); Total Bilirubin 0.6 mg/dL (0.2-1.3); Total Protein 7.1 g/dL (6.3-8.2)
== END | disposition home or self-care (01) ==
LOC: LABWHC1 09:01
PROVIDERS: ATTEND Family Medicine
DX: Z00.01 Encounter for general adult medical examination with abnormal findings (principal)
CPT/HCPCS: 36415; 80053; 80061; 81003; 85025

== ENCOUNTER → 2017-03-16 | Outpatient (CLI) | payer MEDICARE ==
--- NOTE | 2017-03-18 06:46 | MM ---
Reason for exam: screening (asymptomatic). Last mammogram was performed 4 years ago. History: Patient is postmenopausal. Taking estrogen for 3 years beginning at age 58. Physical Findings: A clinical breast exam by your physician is recommended on an annual basis and results should be correlated with mammographic findings. MG Screening Mammo w CAD Bilateral CC and MLO view(s) were taken. Prior study comparison: March 08, 2013, bilateral digital screening mammo w/CAD. September 22, 2011, right diagnostic mammogram w/CAD. March 10, 2011, [facility] DIGITAL RIGHT MAMMOGRAM w/CAD. There are scattered fibroglandular densities. No suspicious abnormality. No significant changes when compared with prior studies. ASSESSMENT: Negative, BI-RAD 1 RECOMMENDATION: Routine screening mammogram of both breasts in 1 year.
== END | disposition home or self-care (01) ==
LOC: RADMAMWWP 15:34
PROVIDERS: ATTEND Family Medicine
DX: Z12.31 Encounter for screening mammogram for malignant neoplasm of breast (principal)
CPT/HCPCS: 77067

== ENCOUNTER → 2017-04-06 | Outpatient (CLI) | payer MEDICARE ==
--- NOTE | 2017-04-06 10:58 | MR ---
EXAMINATION TYPE: MR lumbar spine wo con DATE OF EXAM: 04/06/2017 10:08 AM COMPARISON: NONE HISTORY: Spondylosis with radiculopathy, lumbar Multiplanar, MultiSpin echo imaging of the lumbar spine was performed. L1-L2: Normal disc appearance without desiccation. No herniation, protrusion or disc bulging. No ca nal stenosis is present. Foramina are patent bilaterally. L2-L3: Normal disc appearance without desiccation. No herniation, protrusion or disc bulging. No ca nal stenosis is present. Foramina are patent bilaterally. L3-L4: Normal disc appearance without desiccation. No herniation, protrusion or disc bulging. No ca nal stenosis is present. Foramina are patent bilaterally. L4-L5: Moderate disc desiccation. Circumferential disc bulge with annular tear greatest posteriorly. Effacement ventral thecal sac. No evidence for gilda herniation or central stenosis. Mild bilateral f oraminal encroachment. L5-S1: Severe degenerative disc disease at all 5 S1. Vacuum disks noted. No herniation protrusion or central stenosis. Lumbar segments are intact. T1-weighted bone marrow signal is somewhat heterogenous and correlate wit h CBC. No paraspinal masses are identified. Conus medullaris has a normal appearance. IMPRESSION: 1. Degenerative disc disease with disc bulging primarily at L4-5 as discussed above.
== END | disposition home or self-care (01) ==
LOC: RADMRIMAIN 09:27
PROVIDERS: ATTEND Neurological Surgery
DX: M51.17 Intervertebral disc disorders with radiculopathy, lumbosacral region (principal)
CPT/HCPCS: 72148

== ENCOUNTER → 2017-06-04 | Outpatient (CLI) | payer MEDICARE ==
--- NOTE | 2017-06-04 13:38 | US ---
EXAMINATION TYPE: US venous doppler duplex LE RT DATE OF EXAM: 06/04/2017 1:29 PM COMPARISON: NONE CLINICAL HISTORY: I83.11 Varicose veins of right lower extremity. SIDE PERFORMED: Right TECHNIQUE: The lower extremity deep venous system is examined utilizing real time linear array sonog micki with graded compression, doppler sonography and color-flow sonography. VESSELS IMAGED: External Iliac Vein (EIV) Common Femoral Vein Deep Femoral Vein Greater Saphenous Vein * Femoral Vein Popliteal Vein Small Saphenous Vein * Proximal Calf Veins (* superficial vessels) Right Leg: Negative for DVT Thrombosed varicosity in right medial thigh at area of bruising. Results phoned to Lizette at [facility] at 1:25pm IMPRESSION: 1. No deep venous thrombosis by ultrasound right lower extremity. 2. There is thrombosed varicosities noted in the medial thigh.
== END ==
LOC: RADUSWWP 12:54
PROVIDERS: ATTEND Family Medicine
DX: I82.890 Acute embolism and thrombosis of other specified veins (principal)

== ENCOUNTER 2017-11-03 22:25 | Emergency (ER) | payer MEDICARE ==
[2017-11-03 22:33] VITALS: BP 148/71; PULSE 61; RESP 18; TEMP 97.8
--- NOTE | 2017-11-03 23:01 | XR ---
EXAMINATION TYPE: XR foot complete RT DATE OF EXAM: 11/03/2017 COMPARISON: NONE HISTORY: Pain little toe TECHNIQUE: 3 views FINDINGS: There is nondisplaced oblique fracture distal shaft of the proximal phalanx of the little t oe right foot. There is no dislocation. There is a plantar calcaneal spur. IMPRESSION: Nondisplaced fracture of the little toe.
--- NOTE | 2017-11-03 23:07 | ED ---
Lower Extremity Injury HPI - General Source: patient Mode of arrival: ambulatory Limitations: no limitations <Enma Rawls - Last Filed: 11/04/17 00:18> <Kay Ibrahim - Last Filed: 11/04/17 07:03> - General Chief Complaint: Extremity Injury, Lower Stated Complaint: toe injury Time Seen by Provider: 11/03/17 22:37 - History of Present Illness Initial Comments: This a 67-year-old female who denies past medical history presents today for chief complaint of right small toe pain. Patient states that around 10 PM she was walking around her house when she hit her toe on the sofa. Patient admitted to a sharp shooting pain in the right toe. She denies any pain in the foot or ankle. Patient states that increases with ambulation. Patient wrapped her toe and presents emergency department. Patient denies any numbness, tingling, loss sensation or muscle weakness. Patient is still able to wiggle the pinky toe. Remainder of ROS negative. Upon arrival patient's vital signs stable. (Enma Rawls) - Related Data Home Medications Medication Instructions Recorded Confirmed Cholecalciferol [Vitamin D3] 1,000 unit PO DAILY 07/02/16 08/12/16 Cinnamon Bark [Cinnamon] 500 mg PO DAILY 07/02/16 08/12/16 L.acidoph,Paracasei, B.lactis 1 cap PO DAILY 07/02/16 08/12/16 [Probiotic] [place]-3 Fatty Acids/Fish Oil [Fish 1 cap PO DAILY 07/02/16 08/12/16 Oil 1,000 mg Capsule] Ubidecarenone [Co Q-10] 100 mg PO DAILY 07/02/16 08/12/16 Vitamin B Complex 1 cap PO DAILY 07/02/16 08/12/16 Cyclobenzaprine [Flexeril] 10 mg PO TID PRN 08/12/16 08/12/16 Previous Rx's Medication Instructions Recorded Ibuprofen [Motrin] 800 mg PO Q6HR PRN #20 tab 07/02/16 Clindamycin [Cleocin] 450 mg PO Q8H #30 capsule 08/14/16 Melatonin 3 mg PO HS tab 08/14/16 Allergies Allergy/AdvReac Type Severity Reaction Status Date / Time cephalexin [From Keflex] Allergy Rash/Hives Verified 11/03/17 22:34 clindamycin Allergy Unknown Verified 11/03/17 22:35 sulfamethoxazole Allergy Rash/Hives Verified 11/03/17 22:34 [From Bactrim] trimethoprim [From Bactrim] Allergy Rash/Hives Verified 11/03/17 22:34 Review of Systems ROS Other: All systems not noted in ROS Statement are negative. Constitutional: Denies: fever, chills Eyes: Denies: eye pain ENT: Denies: ear pain, throat pain Respiratory: Denies: cough, dyspnea Cardiovascular: Denies: chest pain, palpitations, dyspnea on exertion Gastrointestinal: Denies: abdominal pain, nausea, vomiting, diarrhea, constipation Genitourinary: Denies: urgency, dysuria, frequency Musculoskeletal: Reports: arthralgia. Denies: back pain Skin: Denies: rash, lesions Neurological: Denies: headache, weakness, numbness, paresthesias, confusion, abnormal gait <Enma Rawls L - Last Filed: 11/04/17 00:18> ROS Other: All systems not noted in ROS Statement are negative. <Kay Ibrahim P - Last Filed: 11/04/17 07:03> ROS Statement: Those systems with pertinent positive or pertinent negative responses have been documented in the HPI. Past Medical History Past Medical History: GERD/Reflux, Osteoarthritis (OA) Additional Past Medical History / Comment(s): chronic back pain. History of Any Multi-Drug Resistant Organisms: None Reported Past Surgical History: Tonsillectomy Additional Past Surgical History / Comment(s): bilateral catarac implants, bilat eyelid surgery Past Anesthesia/Blood Transfusion Reactions: No Reported Reaction Additional Past Anesthesia/Blood Transfusion Reaction / Comment(s): Never had blood transfusion Past Psychological History: No Psychological Hx Reported Smoking Status: Never smoker Past Alcohol Use History: Occasional Past Drug Use History: None Reported - Past Family History Mother Family Medical History: Coronary Artery Disease (CAD) Additional Family Medical History / Comment(s): CABG <Enma Rawls - Last Filed: 11/04/17 00:18> General Exam Limitations: no limitations <Enma Rawls - Last Filed: 11/04/17 00:18> <Kay Ibrahim P - Last Filed: 11/04/17 07:03> - General Exam Comments Initial Comments: General: The patient is awake and alert, in no distress, and does not appear acutely ill. Eye: Pupils are equal, round, extra-ocular movements are intact. No nystagmus. There is normal conjunctiva bilaterally. No signs of icterus. Cardiovascular: There is a regular rate and rhythm. No murmur, rub or gallop is appreciated. Respiratory: Lungs are clear to auscultation, respirations are non-labored, breath sounds are equal. No wheezes, stridor, rales, or rhonchi. Musculoskeletal: Patient is able to fully range at all 5 digits of the right foot including the small right toe. There is no obvious deformity or defect noted of the right small toe. Patient admits to full sensation of all 5 digits and of the foot of the low 70s equally bilaterally. There is tenderness to palpation over the length of the small digit of the right foot. Mild tenderness to palpation at the base of the right digit, however there was no mid foot or ankle tenderness to patient. Strength at the fifth digit was 5/5. DP pulses equal bilaterally 2+. Capillary refill <2seconds. Neurological: A&O x 3. CN II-XII intact, There are no obvious motor or sensory deficits. Coordination appears grossly intact. Speech is normal. Skin: Skin is warm and dry and no rashes or lesions are noted. Psychiatric: Cooperative, appropriate mood & affect, normal judgment. (Enma Rawls) Vital Signs 11/03/17 22:32 Temperature 97.8 F Pulse Rate 61 Respiratory 18 Rate Blood Pressure 148/71 O2 Sat by Pulse 96 Oximetry Medical Decision Making <Enma Rawls - Last Filed: 11/04/17 00:18> <Kay Ibrahim - Last Filed: 11/04/17 07:03> - Medical Decision Making X-ray revealed a oblique fracture of the proximal phalanx of the fifth toe of the right foot. There is no midfoot pain concerning for Lisfranc injury. Patient neurovascularly intact. Patient fourth and fifth digit of the right foot placed in aaron taping. Patient was given prescription for crutches. Patient was instructed to follow-up with orthopedic surgery in one to 2 days, as well as follow [facility] instructions. Case discussed with Dr. Ibrahim who agrees with impression and plan. Patient was discharged in stable condition. (Enma Rawls) I was available for consultation in the emergency department. The history and physical exam were done by the Midlevel Provider. Medical decision making was done by the Midlevel Provider. The Midlevel Provider did not contact me for this patient's care. I was not directly involved in this patient's care. (Kay Ibrahim) Disposition Is patient prescribed a controlled substance at d/c from ED?: No Time of Disposition: 23:06 <Enma Rawls - Last Filed: 11/04/17 00:18> <Kay Ibrahim - Last Filed: 11/04/17 07:03> Clinical Impression: Fracture of proximal phalanx of lesser toe of right foot Disposition: HOME SELF-CARE Condition: Good Instructions: Toe Fracture (ED) Additional Instructions: Please use medication as discussed. Please follow-up with family doctor in the next 2 days. Please follow up with orthopedic associates in the next 3-5 days. Please return to emergency room if the symptoms increase or worsen or for any other concerns. Referrals: Jesse Combs DO [Primary Care Provider] - 1-2 days Corona Saunders DO [Doctor of Osteopathic Medicine] - 1-2 days
== END 2017-11-03 23:20 | disposition home or self-care (01) ==
LOC: EC 22:25
DX: S92.514A Nondisplaced fracture of proximal phalanx of right lesser toe(s), initial encounter for closed fracture (principal); Z79.899 Other long term (current) drug therapy; Z88.1 Allergy status to other antibiotic agents; Z88.2 Allergy status to sulfonamides; W22.8XXA Striking against or struck by other objects, initial encounter; Y92.009 Unspecified place in unspecified non-institutional (private) residence as the place of occurrence of the external cause
CPT/HCPCS: 99283

== ENCOUNTER 2018-05-10 14:31 | Observation (INO) | payer MEDICARE ==
[2018-05-10] MEDS ORDERED: NITROGLYCERIN SL TABS 0.4 MG TAB SUBLINGUAL STA ×3 (14:57)
[2018-05-10] MEDS ORDERED: ASPIRIN 81 MG PO STA (14:57)
--- NOTE | 2018-05-10 15:01 | ED ---
General Adult HPI - General Chief complaint: Chest Pain Stated complaint: Chest Pressure Time Seen by Provider: 05/10/18 14:38 Source: patient, RN notes reviewed Mode of arrival: ambulatory Limitations: no limitations - History of Present Illness Initial comments: Patient is a pleasant 68-year-old female presenting to the emergency department chest pressure. Symptoms have progressed over the past few days. Patient states symptoms originally started similar to indigestion. No associated dyspnea, nausea, or diaphoresis. Patient did take a plane trip a couple of weeks ago. Family member with her did develop pulmonary embolism following this plane trip. Patient has no leg pain or leg swelling. Patient admits also been somewhat more stressed recently. - Related Data Home Medications Medication Instructions Recorded Confirmed Cholecalciferol [Vitamin D3] 1,000 unit PO DAILY 07/02/16 05/10/18 Cinnamon Bark [Cinnamon] 500 mg PO DAILY 07/02/16 05/10/18 L.acidoph,Paracasei, B.lactis 1 cap PO DAILY 07/02/16 05/10/18 [Probiotic] [place]-3 Fatty Acids/Fish Oil [Fish 1 cap PO DAILY 07/02/16 05/10/18 Oil 1,000 mg Capsule] Calcium Carbonate [Calcium] 600 mg PO MOTUWE 05/10/18 05/10/18 Multivitamins, Thera [Multivitamin 1 tab PO DAILY 05/10/18 05/10/18 (formulary)] Vitamin E (Dl,Tocopheryl Acet) 400 unit PO DAILY 05/10/18 05/10/18 [Vitamin E] Allergies Allergy/AdvReac Type Severity Reaction Status Date / Time cephalexin [From Keflex] Allergy Rash/Hives Verified 05/10/18 15:15 clindamycin Allergy Unknown Verified 05/10/18 15:15 sulfamethoxazole Allergy Rash/Hives Verified 05/10/18 15:15 [From Bactrim] trimethoprim [From Bactrim] Allergy Rash/Hives Verified 05/10/18 15:15 Review of Systems ROS Statement: Those systems with pertinent positive or pertinent negative responses have been documented in the HPI. ROS Other: All systems not noted in ROS Statement are negative. Constitutional: Denies: fever Eyes: Denies: eye pain ENT: Denies: ear pain Respiratory: Denies: cough, dyspnea Cardiovascular: Reports: chest pain Endocrine: Denies: fatigue Gastrointestinal: Denies: abdominal pain Genitourinary: Denies: dysuria Musculoskeletal: Denies: back pain Skin: Denies: rash Neurological: Denies: weakness Past Medical History Past Medical History: GERD/Reflux, Osteoarthritis (OA) Additional Past Medical History / Comment(s): chronic back pain. History of Any Multi-Drug Resistant Organisms: None Reported Past Surgical History: Tonsillectomy Additional Past Surgical History / Comment(s): bilateral catarac implants, bilat eyelid surgery Past Anesthesia/Blood Transfusion Reactions: No Reported Reaction Additional Past Anesthesia/Blood Transfusion Reaction / Comment(s): Never had blood transfusion Past Psychological History: No Psychological Hx Reported Smoking Status: Never smoker Past Alcohol Use History: Occasional Past Drug Use History: None Reported - Past Family History Mother Family Medical History: Coronary Artery Disease (CAD) Additional Family Medical History / Comment(s): CABG General Exam Limitations: no limitations General appearance: alert, in no apparent distress Head exam: Present: atraumatic Eye exam: Present: normal appearance, PERRL ENT exam: Present: normal oropharynx Neck exam: Present: normal inspection Respiratory exam: Present: normal lung sounds bilaterally Cardiovascular Exam: Present: regular rate, normal rhythm Expanded Peripheral pulses: 2+: Radial (R), Radial (L), Dorsalis Pedis (R), Dorsalis Pedis (L) GI/Abdominal exam: Present: soft. Absent: tenderness Extremities exam: Present: normal inspection. 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 W[place] 168. QRS 156. QT 462. QTC 502. Left axis. Left bundle branch block. No acute ST change. Medical Decision Making - Medical Decision Making Patient reevaluated and resting comfortably in bed. Patient and family updated on results and plan. Case was discussed in detail with Dr. Rouse, covering for Dr. Iniguez, who will admit covering for Dr. Combs. Patient states she does have a history of previous left bundle-branch block. - Lab Data Result diagrams: 05/10/18 14:52 05/10/18 14:52 Lab Results 05/10/18 05/10/18 05/10/18 Range/Units 14:52 14:52 14:52 WBC 6.2 (3.8-10.6) k/uL RBC 4.91 (3.80-5.40) m/uL Hgb 14.2 (11.4-16.0) gm/dL Hct 42.0 (34.0-46.0) % MCV 85.4 (80.0-100.0) fL MCH 28.8 (25.0-35.0) pg MCHC 33.7 (31.0-37.0) g/dL RDW 14.2 (11.5-15.5) % Plt Count 294 (150-450) k/uL Neutrophils % 71 % Lymphocytes % 20 % Monocytes % 6 % Eosinophils % 1 % Basophils % 1 % Neutrophils # 4.4 (1.3-7.7) k/uL Lymphocytes # 1.3 (1.0-4.8) k/uL Monocytes # 0.3 (0-1.0) k/uL Eosinophils # 0.1 (0-0.7) k/uL Basophils # 0.1 (0-0.2) k/uL PT 10.0 (9.0-12.0) sec INR 0.9 (<1.2) APTT 26.2 (22.0-30.0) sec D-Dimer 0.22 (<0.60) mg/L FEU Sodium 142 (137-145) mmol/L Potassium 4.4 (3.5-5.1) mmol/L Chloride 106 (98-107) mmol/L Carbon Dioxide 26 (22-30) mmol/L Anion Gap 10 mmol/L BUN 22 H (7-17) mg/dL Creatinine 0.71 (0.52-1.04) mg/dL Est GFR (CKD-EPI)AfAm >90 (>60 ml/min/1.73 sqM) Est GFR (CKD-EPI)NonAf 87 (>60 ml/min/1.73 sqM) Glucose 106 H (74-99) mg/dL Calcium 10.0 (8.4-10.2) mg/dL Magnesium 2.0 (1.6-2.3) mg/dL Total Bilirubin 0.5 (0.2-1.3) mg/dL AST 18 (14-36) U/L ALT 27 (9-52) U/L Alkaline Phosphatase 78 (38-126) U/L Creatine Kinase 28 L (30-135) U/L Troponin I (0.000-0.034) ng/mL Total Protein 7.3 (6.3-8.2) g/dL Albumin 4.5 (3.5-5.0) g/dL 05/10/18 Range/Units 14:52 WBC (3.8-10.6) k/uL RBC (3.80-5.40) m/uL Hgb (11.4-16.0) gm/dL Hct (34.0-46.0) % MCV (80.0-100.0) fL MCH (25.0-35.0) pg MCHC (31.0-37.0) g/dL RDW (11.5-15.5) % Plt Count (150-450) k/uL Neutrophils % % Lymphocytes % % Monocytes % % Eosinophils % % Basophils % % Neutrophils # (1.3-7.7) k/uL Lymphocytes # (1.0-4.8) k/uL Monocytes # (0-1.0) k/uL Eosinophils # (0-0.7) k/uL Basophils # (0-0.2) k/uL PT (9.0-12.0) sec INR (<1.2) APTT (22.0-30.0) sec D-Dimer (<0.60) mg/L FEU Sodium (137-145) mmol/L Potassium (3.5-5.1) mmol/L Chloride (98-107) mmol/L Carbon Dioxide (22-30) mmol/L Anion Gap mmol/L BUN (7-17) mg/dL Creatinine (0.52-1.04) mg/dL Est GFR (CKD-EPI)AfAm (>60 ml/min/1.73 sqM) Est GFR (CKD-EPI)NonAf (>60 ml/min/1.73 sqM) Glucose (74-99) mg/dL Calcium (8.4-10.2) mg/dL Magnesium (1.6-2.3) mg/dL Total Bilirubin (0.2-1.3) mg/dL AST (14-36) U/L ALT (9-52) U/L Alkaline Phosphatase (38-126) U/L Creatine Kinase (30-135) U/L Troponin I <0.012 (0.000-0.034) ng/mL Total Protein (6.3-8.2) g/dL Albumin (3.5-5.0) g/dL - Radiology Data Radiology results: image reviewed (Chest x-ray reveals no acute process) Disposition Clinical Impression: Chest pain Disposition: ADMITTED IP TO THIS HOSP Is patient prescribed a controlled substance at d/c from ED?: No Referrals: Jesse Combs DO [Primary Care Provider] - 1-2 days Decision Time: 16:18
[2018-05-10 15:10] LABS: Basophils # (A) 0.1 k/uL (0-0.2); Basophils % (A) 1 %; Eosinophils # (A) 0.1 k/uL (0-0.7); Eosinophils % (A) 1 %; HGB 14.2 gm/dL (11.4-16.0); Lymphocytes # (A) 1.3 k/uL (1.0-4.8); Lymphocytes % (A) 20 %; MCH 28.8 pg (25.0-35.0); MCHC 33.7 g/dL (31.0-37.0); MCV 85.4 fL (80.0-100.0); Mean Platelet Volume 7.2; Monocytes # (A) 0.3 k/uL (0-1.0); Monocytes % (A) 6 %; Neutrophils # (A) 4.4 k/uL (1.3-7.7); Neutrophils % (A) 71 %; Platelet Count 294 k/uL (150-450); RBC 4.91 m/uL (3.80-5.40); RDW 14.2 % (11.5-15.5); WBC 6.2 k/uL (3.8-10.6)
[2018-05-10 15:16] LABS: ALT 27 U/L (9-52); AST 18 U/L (14-36); Albumin 4.5 g/dL (3.5-5.0); Alkaline Phosphatase 78 U/L (38-126); Anion Gap 10 mmol/L; Blood Urea Nitrogen 22 mg/dL (7-17); Carbon Dioxide 26 mmol/L (22-30); Chloride 106 mmol/L (98-107); Creatine Kinase 28 U/L (30-135); Glucose 106 mg/dL (74-99); Potassium 4.4 mmol/L (3.5-5.1); Sodium 142 mmol/L (137-145); Total Bilirubin 0.5 mg/dL (0.2-1.3); Total Protein 7.3 g/dL (6.3-8.2)
[2018-05-10 15:20] LABS: D-Dimer 0.22 mg/L FEU (<0.60); INR 0.9 (<1.2); Partial Thromboplastin Time 26.2 sec (22.0-30.0)
--- NOTE | 2018-05-10 15:41 | XR ---
EXAMINATION TYPE: XR chest 2V DATE OF EXAM: 05/10/2018 COMPARISON: Chest x-ray July 02, 2016. HISTORY: Chest pain. TECHNIQUE: Frontal and lateral views of the chest are obtained. FINDINGS: Overlying EKG leads are redemonstrated. There is no focal air space opacity, pleural effus ion, or pneumothorax seen. The cardiac silhouette size is within normal limits. The osseous struct ures are intact. IMPRESSION: No acute cardiopulmonary process. No significant change from prior.
[2018-05-10] MEDS ORDERED: NITROGLYCERIN SL TABS 0.4 MG TAB SUBLINGUAL PRN (16:19)
[2018-05-10] MEDS: NITROGLYCERIN OINT 1 INCH/GM PACKET TOPICAL SCH (21:29)
[2018-05-10 23:29] VITALS: RESP 16
[2018-05-11] MEDS: NITROGLYCERIN OINT 1 INCH/GM PACKET TOPICAL SCH ×3 (00:10→13:03)
[2018-05-11] MEDS ORDERED: ACETAMINOPHEN TAB 325 MG TAB PO PRN (00:25)
--- NOTE | 2018-05-11 00:38 | P.HPIM ---
History of Present Illness H&P Date: 05/10/18 Chief Complaint: Chest pressure Patient is a 68-year-old female with a known history of GERD, osteoarthritis, chronic back pain and lifelong nonsmoker came to ER with the complaints of chest pressure for the past few days. On and off. Patient today also felt lightheaded. Patient has been having progression of symptoms. No associated nausea vomiting or diaphoresis. Patient has been stressed out recently and also tried to move furniture at home few days ago. Denied any neck pain. No radiation of the pain. No fever no chills. No cough or sputum production. No nausea vomiting or abdominal pain or diarrhea Patient did take a plane trip a couple of weeks ago. Family member with her did develop pulmonary embolism following this plane trip. Patient has no leg pain or leg swelling. D-dimer is not elevated EKG showed normal sinus rhythm with left bundle branch block is undetermined Chest x-ray showed no acute cardiopulmonary process Troponin 2 negative Blood pressure is elevated with SBP greater than 180 mm Hg on admission. Review of Systems Constitutional: Patient denies any fever or chills . No generalized weakness or weight loss. Abdomen: Patient denied nausea vomiting and diarrhea and abdominal pain. Cardiovascular: Patient denies any chest pain or short of breath no palpitations. No leg swelling. Chest pressure. Respiratory: patient denied any cough is from production. No shortness of breat h Neurologic: Patient denied any numbness or tingling headache. Musculoskeletal: Patient denies any complaints of joint swelling or deformity. Skin: Negative Psychiatric: Negative Endocrine: No heat or cold intolerance. No recent weight gain. Genitourinary: No dysuria or hematuria. All other 14 point ROS negative except the above Past Medical History Past Medical History: GERD/Reflux, Osteoarthritis (OA) Additional Past Medical History / Comment(s): chronic back pain. History of Any Multi-Drug Resistant Organisms: None Reported Past Surgical History: Tonsillectomy Additional Past Surgical History / Comment(s): bilateral catarac implants, bilat eyelid surgery Past Anesthesia/Blood Transfusion Reactions: No Reported Reaction Additional Past Anesthesia/Blood Transfusion Reaction / Comment(s): Never had blood transfusion Past Psychological History: No Psychological Hx Reported Smoking Status: Never smoker Past Alcohol Use History: Occasional Past Drug Use History: None Reported - Past Family History Mother Family Medical History: Coronary Artery Disease (CAD) Additional Family Medical History / Comment(s): CABG Medications and Allergies Home Medications Medication Instructions Recorded Confirmed Type Cholecalciferol [Vitamin D3] 1,000 unit PO DAILY 07/02/16 05/10/18 History Cinnamon Bark [Cinnamon] 500 mg PO DAILY 07/02/16 05/10/18 History L.acidoph,Paracasei, B.lactis 1 cap PO DAILY 07/02/16 05/10/18 History [Probiotic] [place]-3 Fatty Acids/Fish Oil [Fish 1 cap PO DAILY 07/02/16 05/10/18 History Oil 1,000 mg Capsule] Calcium Carbonate [Calcium] 600 mg PO MOTUWE 05/10/18 05/10/18 History Multivitamins, Thera [Multivitamin 1 tab PO DAILY 05/10/18 05/10/18 History (formulary)] Vitamin E (Dl,Tocopheryl Acet) 400 unit PO DAILY 05/10/18 05/10/18 History [Vitamin E] Allergies Allergy/AdvReac Type Severity Reaction Status Date / Time cephalexin [From Keflex] Allergy Rash/Hives Verified 05/10/18 15:15 clindamycin Allergy Unknown Verified 05/10/18 15:15 sulfamethoxazole Allergy Rash/Hives Verified 05/10/18 15:15 [From Bactrim] trimethoprim [From Bactrim] Allergy Rash/Hives Verified 05/10/18 15:15 Physical Exam Vitals: Vital Signs Temp Pulse Pulse Resp BP Pulse Ox 05/10/18 15:08 80 18 156/76 05/10/18 15:02 82 16 181/74 100 05/10/18 14:35 78 05/10/18 14:32 98.3 F 75 18 183/102 97 Intake and Output 05/10/18 05/10/18 05/10/18 06:59 14:59 22:59 Other: Weight 74.389 kg PHYSICAL EXAMINATION: Patient is lying in the bed comfortably, no acute distress, awake alert and oriented.. HEENT: Normocephalic. Neck is supple. Pupils reactive. Nostrils clear. Oral cavity is moist. Ears reveal no drainage. Neck reveals no JVD, carotid bruits, or thyromegaly. CHEST EXAMINATION: Trachea is central. Symmetrical expansion. Lung haro clear to auscultation and percussion. CARDIAC: Normal S1, S2 with no gallops. No murmurs ABDOMEN: Soft. Bowel sounds normal. No organomegaly. No abdominal bruits. Extremities: reveal no edema. No clubbing or cyanosis Neurologically awake, alert, oriented x3 with well-coordinated movements. No focal deficits noted Skin: No rash or skin lesions. Psychiatric: Coperative. Nonsuicidal Musculoskeletal: No joint swelling or deformity. Normal range of motion. Results CBC & Chem 7: 05/10/18 14:52 05/10/18 14:52 Labs: Abnormal Lab Results - Last 24 Hours (Table) 05/10/18 Range/Units 14:52 BUN 22 H (7-17) mg/dL Glucose 106 H (74-99) mg/dL Creatine Kinase 28 L (30-135) U/L Thrombosis Risk Factor Assmnt - DVT/VTE Prophylaxis DVT/VTE Prophylaxis: Pharmacologic Prophylaxis ordered Assessment and Plan Assessment: Atypical chest pain. Rule out ACS Lightheadedness Left bundle branch block age undetermined Uncontrolled hypertension. On admission. Chronic back pain Osteoarthritis GERD Recent plane travel. D-dimer not elevated Lifelong nonsmoker DVT prophylaxis with heparin subcutaneously Plan: Patient will be continued on telemetry monitoring. Serial troponins 2 negative. D-dimer is not elevated. Cardiology will be consulted for evaluation. Continue with pain management and further recommendations based on the clinical course. Time with Patient: Greater than 30
[2018-05-11 01:57] LABS: Cholesterol 192 mg/dL (<200); HDL Cholesterol 75 mg/dL (40-60); LDL Cholesterol,Calculated 92 mg/dL (0-99); Triglycerides 126 mg/dL (<150)
[2018-05-11 06:24] VITALS: BP 142/73; PULSE 63; TEMP 98.3
[2018-05-11] MEDS ORDERED: ASPIRIN 325 MG TAB PO SCH (09:00)
[2018-05-11] MEDS ORDERED: CAFFEINE CITRATE 60 MG/3 ML VIAL IV PRN (09:09)
[2018-05-11] MEDS ORDERED: AMINOPHYLLINE 500 MG/20 ML VIAL IV PRN (09:09)
[2018-05-11] MEDS ORDERED: REGADENOSON 0.4 MG/5 ML SYRINGE IV ONE (09:09)
[2018-05-11] MEDS ORDERED: SODIUM CHLORIDE 0.9% IV ONE (09:30)
[2018-05-11] MEDS ORDERED: DIPYRIDAMOLE IV ONE (09:30)
[2018-05-11] MEDS: HEPARIN SODIUM,PORCINE 5,000 UNIT/ML 1 ML VIAL SQ SCH ×2 (09:32→13:03)
--- NOTE | 2018-05-11 09:49 | P.CRDCN ---
History of Present Illness History of present illness: This is a pleasant 68-year-old female past medical history significant for gastroesophageal reflux disease and osteoarthritis. She denies history of coronary artery disease, hypertension, dyslipidemia and diabetes mellitus. We have been asked to see her in consultation secondary to chest discomfort. She states recently she moved some furniture around her home and then 24 hours later she started feeling a very vague pressure-like sensation in the left precordial region. The pain was intermittent, not associated with exertion and not reproducible on palpation. The pain would sometimes moved to the right anterior chest wall that there was nothing down the arm, into the neck, jaw or through to the back. Also over the previous couple of days she has noticed increased li ghtheadedness with position changes. Orthostatic vital signs obtained were unremarkable. At the time of my exam she continues to have very light pressure in the left precordial region. It is not reproducible, not worse with deep inspiration and she denies any cough. She denies any associated shortness of breath, palpitations, nausea, vomiting or diaphoresis. Initially when she felt this discomfort she thought it was related to reflux disease and attempted to take Prilosec for the first couple of days but achieved no relief of her discomfort. Nitropaste applied in the emergency department did not affect her pain or improve it. EKG reveals left bundle branch block which is chronic. Chest x-ray is negative for an acute cardiopulmonary process. Laboratory data reviewed, cardiac enzymes negative 3, d-dimer 0.22, hemoglobin 14.2, platelets 294, sodium 142, potassium 4.4, creatinine 0.71, magnesium 2.0. She takes no daily cardiac medications. Most recent stress test was 2013 Lexiscan stress test is negative for reversible cardiac ischemia. At the time of my exam: CONSTITUTIONAL: Denies fever. Denies chills. EYES: Denies blurred vision. Denies vision changes. Denies eye pain. EARS, NOSE, MOUTH & THROAT: Denies headache. Denies sore throat. Denies ear pain. CARDIOVASCULAR: Complains of chest pain. Denies shortness of breath. Denies orthopnea. Denies PND. Denies palpitations. RESPIRATORY: Denies cough. GASTROINTESTINAL: Denies abdominal pain. Denies diarrhea. Denies constipation. Denies nausea. Denies vomiting. MUSCULOSKELETAL: Denies myalgias. INTEGUMENTARY: Denies pruitis. Denies rash. NEUROLOGIC: Denies numbness. Denies tingling. Denies weakness. PSYCHIATRIC: Denies anxiety. Denies depression. ENDOCRINE: Denies fatigue. Denies weight change. Denies polydipsia. Denies polyurina. GENITOURINARY: Denies burning, hematuria or urgency with micturation. HEMATOLOGIC: Denies history of anemia. Denies bleeding. Blood pressure 147/82 heart rate 70 afebrile maintaining oxygen saturation on room air GENERAL: This is a 68-year-old female in no apparent distress at the time of my examination. HEENT: Head is atraumatic, normocephalic. Pupils are equal, round. Sclerae anicteric. Conjunctivae are clear. Mucous membranes of the mouth are moist. Neck is supple. There is no jugular venous distention. No carotid bruit is heard. LUNGS: Clear to auscultation no wheezes, rales or rhonchi. No chest wall tenderness is noted on palpation or with deep breathing. HEART: Regular rate and rhythm without murmurs, rubs or gallops. S1 and S2 heard. ABDOMEN: Soft, nontender. Bowel sounds are heard. No organomegaly noted. EXTREMITIES: No evidence of peripheral edema and no calf tenderness noted. VASCULAR: Radial and dorsalis pedis pulses palpated, no evidence of clubbing. NEUROLOGIC: Patient is awake, alert and oriented x3. ASSESSMENT Chest pain, atypical for angina with associated lightheadedness. Normal d-dimer and negative cardiac enzymes. Left bundle branch block, chronic Family history of coronary artery disease with her mother having bypass surgery in her 70s. PLAN An acute coronary event has been ruled out. Discontinue Nitropaste. Obtain 2-D echocardiogram and Doppler study to assess cardiac structure and function. Perform Persantine stress test to assess for reversible cardiac ischemia. Thank you kindly for this consultation. Nurse Practitioner note has been reviewed, I agree with a documented findings and plan of care. Patient was seen and examined. Past Medical History Past Medical History: GERD/Reflux, Osteoarthritis (OA) Additional Past Medical History / Comment(s): chronic back pain. History of Any Multi-Drug Resistant Organisms: None Reported Past Surgical History: Tonsillectomy Additional Past Surgical History / Comment(s): bilateral catarac implants, bilat eyelid surgery Past Anesthesia/Blood Transfusion Reactions: No Reported Reaction Additional Past Anesthesia/Blood Transfusion Reaction / Comment(s): Never had blood transfusion Past Psychological History: No Psychological Hx Reported Smoking Status: Never smoker Past Alcohol Use History: Occasional Past Drug Use History: None Reported - Past Family History Mother Family Medical History: Coronary Artery Disease (CAD) Additional Family Medical History / Comment(s): CABG Medications and Allergies Home Medications Medication Instructions Recorded Confirmed Type Cholecalciferol [Vitamin D3] 1,000 unit PO DAILY 07/02/16 05/10/18 History Cinnamon Bark [Cinnamon] 500 mg PO DAILY 07/02/16 05/10/18 History L.acidoph,Paracasei, B.lactis 1 cap PO DAILY 07/02/16 05/10/18 History [Probiotic] [place]-3 Fatty Acids/Fish Oil [Fish 1 cap PO DAILY 07/02/16 05/10/18 History Oil 1,000 mg Capsule] Calcium Carbonate [Calcium] 600 mg PO MOTUWE 05/10/18 05/10/18 History Multivitamins, Thera [Multivitamin 1 tab PO DAILY 05/10/18 05/10/18 History (formulary)] Vitamin E (Dl,Tocopheryl Acet) 400 unit PO DAILY 05/10/18 05/10/18 History [Vitamin E] Allergies Allergy/AdvReac Type Severity Reaction Status Date / Time cephalexin [From Keflex] Allergy Rash/Hives Verified 05/10/18 15:15 clindamycin Allergy Unknown Verified 05/10/18 15:15 sulfamethoxazole Allergy Rash/Hives Verified 05/10/18 15:15 [From Bactrim] trimethoprim [From Bactrim] Allergy Rash/Hives Verified 05/10/18 15:15 Physical Exam Vitals: Vital Signs Temp Pulse Pulse Pulse Pulse Pulse Resp 05/11/18 06:22 98.3 F 70 87 63 16 05/11/18 04:00 98.4 F 67 16 05/11/18 03:16 78 16 05/11/18 00:00 78 16 05/10/18 23:44 98.2 F 78 16 05/10/18 23:21 98.6 F 80 16 05/10/18 19:00 98.5 F 74 18 05/10/18 15:08 80 18 05/10/18 15:02 82 16 05/10/18 14:35 78 05/10/18 14:32 98.3 F 75 18 BP BP BP BP BP Pulse Ox 05/11/18 06:22 131/75 147/82 142/73 99 05/11/18 04:00 110/57 97 05/11/18 03:16 05/11/18 00:00 05/10/18 23:44 135/68 93 L 05/10/18 23:21 127/88 97 05/10/18 19:00 151/69 97 05/10/18 15:08 156/76 05/10/18 15:02 181/74 100 05/10/18 14:35 05/10/18 14:32 183/102 97 Intake and Output 05/10/18 05/11/18 05/11/18 22:59 06:59 14:59 Intake Total 80 Balance 80 Intake: Oral 80 Other: Voiding Method Toilet # Voids 1 Results 05/10/18 14:52 05/10/18 14:52 Cardiac Enzymes 05/10/18 05/10/18 05/10/18 Range/Units 14:52 14:52 20:54 AST 18 (14-36) U/L Troponin I <0.012 <0.012 (0.000-0.034) ng/mL 05/11/18 Range/Units 03:36 AST (14-36) U/L Troponin I <0.012 (0.000-0.034) ng/mL Coagulation 05/10/18 Range/Units 14:52 PT 10.0 (9.0-12.0) sec APTT 26.2 (22.0-30.0) sec Lipids 05/10/18 Range/Units 14:52 Triglycerides 126 (<150) mg/dL Cholesterol 192 (<200) mg/dL HDL Cholesterol 75 H (40-60) mg/dL CBC 05/10/18 Range/Units 14:52 WBC 6.2 (3.8-10.6) k/uL RBC 4.91 (3.80-5.40) m/uL Hgb 14.2 (11.4-16.0) gm/dL Hct 42.0 (34.0-46.0) % Plt Count 294 (150-450) k/uL Comprehensive Metabolic Panel 05/10/18 Range/Units 14:52 Sodium 142 (137-145) mmol/L Potassium 4.4 (3.5-5.1) mmol/L Chloride 106 (98-107) mmol/L Carbon Dioxide 26 (22-30) mmol/L BUN 22 H (7-17) mg/dL Creatinine 0.71 (0.52-1.04) mg/dL Glucose 106 H (74-99) mg/dL Calcium 10.0 (8.4-10.2) mg/dL AST 18 (14-36) U/L ALT 27 (9-52) U/L Alkaline Phosphatase 78 (38-126) U/L Total Protein 7.3 (6.3-8.2) g/dL Albumin 4.5 (3.5-5.0) g/dL Current Medications Generic Name Dose Route Start Last Admin Trade Name Freq PRN Reason Stop Dose Admin Acetaminophen 650 mg 05/11/18 00:25 05/11/18 00:45 Tylenol Tab PO 650 mg Q6HR PRN Administration Fever and/ or Pain Aspirin 325 mg 05/11/18 09:00 Aspirin PO DAILY [facility] Heparin Sodium (Porcine) 5,000 unit 05/11/18 08:00 Heparin SQ Q8HR [facility] Nitroglycerin 1 inch 05/10/18 18:00 05/11/18 05:49 Nitro-Bid Oint TOPICAL 1 inch Q6HR ANAYELI Administration Nitroglycerin 0.4 mg 05/10/18 16:19 Nitrostat SUBLINGUAL Q5M PRN Chest Pain Sodium Chloride 10 ml 05/10/18 21:00 05/10/18 21:30 Saline Flush IV 10 ml BID ANAYELI Administration Intake and Output 05/10/18 05/11/18 05/11/18 22:59 06:59 14:59 Intake Total 80 Balance 80 Intake: Oral 80 Other: Voiding Method Toilet # Voids 1 05/10/18 14:52 05/10/18 14:52
[2018-05-11] MEDS ORDERED: DEXTROSE 5% IN WATER 50 ML BAG ONE (11:45)
[2018-05-11] MEDS ORDERED: CAFFEINE CITRATE 60 MG/3 ML VIAL ONE (11:45)
--- NOTE | 2018-05-11 11:48 | P.STRESS ---
- Stress Test Note Stress Test Results/Findings: Exam Performed: NM stress persantine cardiolite Exam Date: 05/11/18 Reason for Exam: CHEST PAIN Height: 5 ft 4 in Weight: 74.389 kg Protocol: PERSANTINE CARDIOLITE Stage: NA Duration of Exercise: NA Resting Heart Rate: 74 Resting Blood Pressure: 136/69 Maximum Achieved Heart Rate: 103 Maximum Achieved Blood Pressure: 137/53 85% PMHR: NA 100% PMHR: NA METS: NA Technologist Comment: Stress Test Results/Findings: This is a 68-year-old female who was admitted to the hospital with chest pain. Patient has history of ischemic heart disease in the family. Stress data: Baseline EKG showed sinus rhythm with a left bundle branch block pattern. Blood pressure at rest is 136/69 with pulse rate of 74. A standard dose of percent was infused EKGs taken during and after infusion did not reveal any significant changes from the baseline. Final impression: #1. Nondiagnostic Persantine stress test because of baseline EKG changes #2. Report on the nuclear images to begin by radiologist
--- NOTE | 2018-05-11 13:05 | NM ---
EXAMINATION TYPE: NM stress lexiscan cardiolite DATE OF EXAM: 05/11/2018 COMPARISON: 12/26/2013 HISTORY: 68-year-old female with chest pain and family history TECHNIQUE: After the intravenous administration of 10.1 mCi Tc 99m Sestamibi - Cardiolite resting SP ECT images acquired 45 minutes post injection. The patient received 0.4mg Lexiscan, 25.6 mCi Tc 99m Sestamibi - Stress images obtained [address] injection FINDINGS: Review of stress and rest SPECT images fixed diminished perfusion along the septal wall. No suspiciou s reversibility is seen. Gated analysis shows overall normal wall motion with an estimated left ventr icular ejection fraction of 58 %. TID is calculated at 1.08, within normal limits. IMPRESSION: Fixed diminished perfusion along the septal wall could represent an old infarct. No scintigraphic geoff dence for reversible ischemia at this time.
--- NOTE | 2018-05-11 13:15 | ECHOF ---
Referral Reason:cp MEASUREMENTS -------- HEIGHT: 162.6 cm WEIGHT: 74.4 kg BP: IVSd: 1.2 cm (0.6 - 1.1) LVIDd: 4.4 cm (3.9 - 5.3) LVPWd: 1.2 cm (0.6 - 1.1) IVSs: 1.2 cm LVIDs: 3.5 cm LVPWs: 1.3 cm LAESV Index (A-L): 24.65 ml/m Ao Diam: 2.8 cm (2.0 - 3.7) AV Cusp: 1.5 cm (1.5 - 2.6) LA Diam: 2.9 cm (2.7 - 3.8) MV EXCURSION: 22.213 mm (> 18.000) MV EF SLOPE: 50 mm/s (70 - 150) EPSS: 0.9 cm MV E José Miguel: 0.78 m/s MV DecT: 216 ms MV A José Miguel: 1.04 m/s MV E/A Ratio: 0.76 RAP: 5.00 mmHg RVSP: 26.13 mmHg FINDINGS -------- Sinus rhythm. This was a technically adequate study. The left ventricular size is normal. There is mild concentric left ventricular hypertrophy. Overa ll left ventricular systolic function is normal with, an EF between 55 - 60 %. Septal wall motion i s delayed, and consistent with conduction delay/bundle branch block. The right ventricle is normal in size. The left atrial size is normal. The right atrial size is normal. There is mild aortic valve sclerosis. There is no evidence of aortic regurgitation. Mild mitral annular calcification present. Mild mitral regurgitation is present. Mild tricuspid regurgitation present. There is no evidence of pulmonary hypertension. The right v entricular systolic pressure, as measured by Doppler, is 26.13mmHg. There is no pulmonic regurgitation present. The aortic root size is normal. There is no pericardial effusion. CONCLUSIONS -------- 1. The left ventricular size is normal. 2. There is mild concentric left ventricular hypertrophy. 3. Overall left ventricular systolic function is normal with, an EF between 55 - 60 %. 4. Septal wall motion is delayed, and consistent with conduction delay/bundle branch block. 5. The right ventricle is normal in size. 6. The left atrial size is normal. 7. The right atrial size is normal. 8. There is mild aortic valve sclerosis. 9. Mild mitral annular calcification present. 10. Mild mitral regurgitation is present. 11. Mild tricuspid regurgitation present. 12. There is no evidence of pulmonary hypertension. 13. The right ventricular systolic pressure, as measured by Doppler, is 26.13mmHg. 14. There is no pulmonic regurgitation present. 15. The aortic root size is normal. 16. There is no pericardial effusion. SAFETY OFFICER: Kristina Byrd RDCS
[2018-05-11] MEDS ORDERED: KETOROLAC 30 MG/ML 1 ML VIAL IVP STA (13:38)
== END 2018-05-11 14:46 | disposition home or self-care (01) ==
LOC: EC 14:31 → 1SOBS 16:19
PROVIDERS: ADMIT Internal Medicine; ATTEND Internal Medicine
DX: R07.89 Other chest pain (principal); R42 Dizziness and giddiness; K21.9 Gastro-esophageal reflux disease without esophagitis; I44.7 Left bundle-branch block, unspecified; I10 Essential (primary) hypertension; G89.29 Other chronic pain; M54.9 Dorsalgia, unspecified; M19.90 Unspecified osteoarthritis, unspecified site; Z88.1 Allergy status to other antibiotic agents; Z88.2 Allergy status to sulfonamides; Z98.42 Cataract extraction status, left eye; Z98.41 Cataract extraction status, right eye; Z96.1 Presence of intraocular lens; Z82.49 Family history of ischemic heart disease and other diseases of the circulatory system
CPT/HCPCS: 96374; 99285; 36415; 93005; 93017; 93306; 85379; 80061; 80053; 82550; 83735; 84484 ×2; 85025; 85610; 85730; 71046; 78452; G0378 ×2; A9500; J1885; J0706

== ENCOUNTER 2019-03-10 07:13 | Day surgery (SDC) | payer MEDICARE ==
[2019-03-08 15:16] VITALS: BMI 26.9
[~2019-03-10 07:13] MED LIST: LACTATED RINGERS 1,000 ML IV SCH; LIDOCAINE 1% 20 ML VIAL (10MG/ML) FOR IV START INTRADERMA PRN
[2019-03-10 07:50] VITALS: TEMP 97.6
[2019-03-10] MEDS ORDERED: MIDAZOLAM 2 MG/2 ML VIAL ONE (08:01)
[2019-03-10] MEDS ORDERED: PROPOFOL 10 MG/ML 20 ML VIAL IV ONE (08:01)
[2019-03-10] MEDS ORDERED: fentaNYL (PF) 50 MCG/ML 2 ML AMP ONE (08:01)
[2019-03-10] MEDS ORDERED: LIDOCAINE 1% INJ 10MG/ML (20 ML MDV) ONE (08:01)
--- NOTE | 2019-03-10 08:43 | P.PCN ---
Date of Procedure: 03/10/19 Description of Procedure: BRIEF HISTORY: Patient is a 69-year-old female with a prior history of colon polyps who presents for colonoscopy for follow-up of her history of colon polyps. Denies any change in bowel habits, blood per rectum or abdominal pain. No family history of colon cancer. PROCEDURE PERFORMED: Colonoscopy with polypectomy. PREOPERATIVE DIAGNOSIS: Personal history of colon polyps, last colonoscopy approximately 6 years ago per her recollection. ESTIMATED BLOOD LOSS: Minimal. IV sedation per Anesthesia. PROCEDURE: After informed consent was obtained, the patient, was brought into the endoscopy unit. IV sedation was administered by Anesthesia under continuous monitoring. Digital rectal examination was normal. Initially the Olympus CF-190 flexible video colonoscope was then inserted in the rectum, gradually advanced into the cecum without any difficulty. Careful examination was performed as the scope was gradually being withdrawn. Ileocecal valve and the appendiceal orifice were visualized and appeared normal. The terminal ileum was intubated and appeared normal. Prep was excellent. Mucosa of the cecum, ascending colon, transverse colon, descending colon, sigmoid colon, and rectum appeared normal. 8 mm sigmoid colon polyp removed with cold snare polypectomy. 2 sessile colon polyps measuring 5 mm and 7 mm in size removed from the ascending colon with cold snare polypectomy. Diminutive 1 mm cecal polyp removed with cold forcep polypectomy. Retroflexion was performed in the rectum and no lesions were seen, low-grade internal hemorrhoids noted. The patient tolerated the procedure well. IMPRESSION: 3 sessile colon polyps removed from the sigmoid colon and descending colon with cold snare polypectomy. Diminutive cecal polyp removed with cold forcep polypectomy. RECOMMENDATIONS: Findings of this examination were discussed with the patient and her . Okay to resume diet. Okay to resume medications. Await pathology from polypectomies. Anticipate repeat colonoscopy in 3 years pending pathology from polypectomies.
[2019-03-10 08:48] VITALS: RESP 16
[2019-03-10 09:08] VITALS: BP 166/74; PULSE 66
== END 2019-03-10 09:14 | disposition home or self-care (01) ==
LOC: ORWHC2ENDO 07:13
PROVIDERS: ATTEND Internal Medicine
DX: Z12.11 Encounter for screening for malignant neoplasm of colon (principal); D12.5 Benign neoplasm of sigmoid colon; D12.2 Benign neoplasm of ascending colon; D12.0 Benign neoplasm of cecum; K64.8 Other hemorrhoids; G47.33 Obstructive sleep apnea (adult) (pediatric); K21.9 Gastro-esophageal reflux disease without esophagitis; Z86.010 Personal history of colon polyps; Z87.891 Personal history of nicotine dependence; Z88.1 Allergy status to other antibiotic agents; Z88.2 Allergy status to sulfonamides; Z90.89 Acquired absence of other organs; Z98.42 Cataract extraction status, left eye; Z98.41 Cataract extraction status, right eye; Z98.890 Other specified postprocedural states; Z99.89 Dependence on other enabling machines and devices
CPT/HCPCS: 88305; 45380; 45385; J2250; J2001; J3010; J2704

== ENCOUNTER → 2019-03-14 | Outpatient (CLI) | payer MEDICARE ==
--- NOTE | 2019-03-16 10:54 | MM ---
Reason for exam: screening (asymptomatic). Last mammogram was performed 2 years ago. History: Patient is postmenopausal. Taking estrogen for 3 years beginning at age 58. Physical Findings: A clinical breast exam by your physician is recommended on an annual basis and results should be correlated with mammographic findings. MG 3D Screening Mammo W/Cad Bilateral CC and MLO view(s) were taken. Prior study comparison: March 16, 2017, bilateral MG screening mammo w CAD. March 08, 2013, bilateral digital screening mammo w/CAD. There are scattered fibroglandular densities. New 1.0cm lobulated, high density mass central upper inner quadrant left breast posteriorly. Vague asymmetric density just anteriorly on the CC view with out MLO correlate. ASSESSMENT: Incomplete: need additional imaging evaluation, BI-RAD 0 RECOMMENDATION: Special view mammogram and ultrasound of the left breast. (3D) [facility] will attempt to contact patient to return for supplemental views and ultrasound.
== END | disposition home or self-care (01) ==
LOC: RADMAMWWP 13:36
PROVIDERS: ATTEND Family Medicine
DX: Z12.31 Encounter for screening mammogram for malignant neoplasm of breast (principal)
CPT/HCPCS: 77063; 77067

== ENCOUNTER → 2019-03-25 | Outpatient (CLI) | payer MEDICARE ==
--- NOTE | 2019-03-28 08:27 | MM ---
Reason for exam: additional evaluation requested from abnormal screening. Last mammogram was performed less than 1 month ago. History: Patient is postmenopausal. Took estrogen for 3 years beginning at age 58. Physical Findings: Nurse Summary: patient did not tolerate breast exam and stated to discontinue exam shortly after start (nurse ts). MG 3D Work Up W/Cad LT CC, MLO, and LM view(s) were taken of the left breast. Prior study comparison: March 14, 2019, bilateral MG 3d screening mammo w/cad. March 16, 2017, bilateral MG screening mammo w CAD. The breast tissue is heterogeneously dense. This may lower the sensitivity of mammography. There is a persistent 10 x 7mm mass that persists on the spot views in the upper inner quadrant 9-9.5cm from nipple that appears solid on ultrasound. Spot compression review resolves the additional medial middle depth asymmetry. These results were verbally communicated with the patient and result sheet given to the patient on 03/25/19. ASSESSMENT: Suspicious, BI-RAD 4 RECOMMENDATION: Ultrasound core biopsy of the left breast. Called Dr. Combs office with mammographic findings and has scheduled an appointment for the patient for 05/07/19 at 1:[address] Hayes. Biopsy scheduled for 05/05/19 at 12:20. PRELIMINARY REPORT CALLED AND FAXED TO DR. HAYES ON 03/28/19.
--- NOTE | 2019-03-28 08:29 | USB ---
Reason for exam: additional evaluation requested from abnormal screening. History: Patient is postmenopausal. Took estrogen for 3 years beginning at age 58. US Breast Workup Limited LT Left limited breast ultrasound including focal area of concern, retroareolar and axilla demonstrates a 13 x 7 x 8mm lobular, solid, hypoechoic, vascular stalk, taller than wide lesion at 10 o'clock, correlates with mammogram, biopsy recommended, a 6mm and 5mm oval, lymph node at the axilla tail. These results were verbally communicated with the patient and result sheet given to the patient on 03/25/19. ASSESSMENT: Suspicious, BI-RAD 4 RECOMMENDATION: Ultrasound core biopsy of the left breast. Called Dr. Combs office with mammographic findings and has scheduled an appointment for the patient for 05/07/19 at 1:[address] Hayes. Biopsy scheduled for 05/05/19 at 12:20. PRELIMINARY REPORT CALLED AND FAXED TO DR. HAYES ON 03/28/19.
== END | disposition home or self-care (01) ==
LOC: RADMAMWWP 13:34
PROVIDERS: ATTEND Family Medicine
DX: R92.8 Other abnormal and inconclusive findings on diagnostic imaging of breast (principal)
CPT/HCPCS: 77065; 76642; G0279; 77061

== ENCOUNTER → 2019-06-24 | Outpatient (CLI) | payer MEDICARE ==
[2019-06-24 15:04] VITALS: BP 138/85; PULSE 70; RESP 18; TEMP 98.1
--- NOTE | 2019-06-24 15:30 | P.GSHP ---
History of Present Illness H&P Date: 06/24/19 Chief Complaint: Mammogram and ultrasound abnormality left breast Ngoc is a 69-year-old white female who had a routine screening mammogram 03/14/2019. This revealed a new 1 cm lobulated high density mass in the central upper inner quadrant in the left breast posteriorly. Additional mammogram and ultrasound were performed and no lesions of concern were noted in the right breast. Additional mammogram and ultrasound revealed persistence of the mass in the left breast and this corresponded to a 13 x 8 mm solid hypoechoic taller and wide lesion at 10:00 in the left breast on ultrasound. A 6 and 5 mm lymph node at the axillary tail were noted. Ultrasound core biopsy of the left breast was recommended. The patient does feel anything of concern in her breast. She has no history of any recent trauma or infection in her breast. She has not had any breast biopsies in the past. Caffeine: Approximately three quarters of the proper day The patient does not smoke and is not exposed to secondhand smoke The patient eats chocolate dark chocolate/small piece daily she does not take any hormones or hormone therapy Hormonal History: menarche:10 , breast fed: none, age at first : 16 menopause: 48 BCP: 3 years hormones: none Surgical history: 1. Bilateral cataract 2. Eyelid 2. Tonsils Medical history: None Social history: Smoke: Negative Alcohol: Occasional Drugs: Negative - Constitutional Constitutional: Reports sweats, Denies chills, Denies fever - EENT Eyes: denies blurred vision, denies pain Ears: bilateral: decreased hearing, tinnitus Ears, nose, mouth and throat: Denies headache, Denies sore throat - Breasts Breasts: bilateral: as per HPI - Cardiovascular Cardiovascular: Denies chest pain, Denies shortness of breath - Respiratory Respiratory: Denies cough, Denies 7 - Gastrointestinal Gastrointestinal: Denies abdominal pain, Denies diarrhea, Denies nausea, Denies vomiting - Genitourinary (Female) Genitourinary: Denies dysuria, Denies hematuria - Menstruation Menstruation: Reports postmenopausal - Musculoskeletal Comment: arthritis - Integumentary Integumentary: Denies pruritus, Denies rash - Neurological Neurological: Denies numbness, Denies weakness - Psychiatric Psychiatric: Denies anxiety, Denies depression - Endocrine Endocrine: Denies fatigue, Denies weight change - Hematologic/Lymphatic Comment: none - Allergic/Immunologic Allergic/Immunologic: Reports as per HPI Past Medical History Past Medical History: GERD/Reflux, Sleep Apnea/CPAP/BIPAP Additional Past Medical History / Comment(s): . History of Any Multi-Drug Resistant Organisms: None Reported Past Surgical History: Tonsillectomy Additional Past Surgical History / Comment(s): bilateral cataracts, bilat eyelid surgery Past Anesthesia/Blood Transfusion Reactions: No Reported Reaction Additional Past Anesthesia/Blood Transfusion Reaction / Comment(s): Never had blood transfusion Past Psychological History: No Psychological Hx Reported Additional Psychological History / Comment(s): . Smoking Status: Never smoker Past Alcohol Use History: Occasional Additional Past Alcohol Use History / Comment(s): smoked for a couple yrs as teen, 1 pack/week Past Drug Use History: None Reported - Past Family History Mother Family Medical History: Coronary Artery Disease (CAD) Additional Family Medical History / Comment(s): CABG Medications and Allergies Home Medications Medication Instructions Recorded Confirmed Type Cholecalciferol [Vitamin D3 (25 1,000 unit PO DAILY 07/02/16 06/24/19 History Mcg = 1000 Iu)] Cinnamon Bark [Cinnamon] 500 mg PO DAILY 07/02/16 06/24/19 History [place]-3 Fatty Acids/Fish Oil [Fish 1 cap PO DAILY 07/02/16 06/24/19 History Oil 1,000 mg Capsule] Calcium Carbonate [Calcium] 600 mg PO MOTUWE 05/10/18 06/24/19 History Multivitamins, Thera [Multivitamin 1 tab PO DAILY 05/10/18 06/24/19 History (formulary)] Vitamin E (Dl,Tocopheryl Acet) 400 unit PO DAILY 05/10/18 06/24/19 History [Vitamin E] Allergies Allergy/AdvReac Type Severity Reaction Status Date / Time cephalexin [From Keflex] Allergy Rash/Hives Verified 06/24/19 15:04 sulfamethoxazole Allergy Rash/Hives Verified 06/24/19 15:04 [From Bactrim] trimethoprim [From Bactrim] Allergy Rash/Hives Verified 06/24/19 15:04 Surgical - Exam Vital Signs Temp Pulse Resp BP Pulse Ox 98.1 F 70 18 138/85 95 06/24/19 15:00 06/24/19 15:00 06/24/19 15:00 06/24/19 15:00 06/24/19 15:00 BMI 26.6 - General well developed, well nourished, no distress - Eyes normal ocular movement - ENT no hearing loss, no congestion - Neck no masses, trachea midline - Respiratory normal expansion, normal respiratory effort, clear to auscultation - Cardiovascular Rhythm: regular Heart Sounds: normal: S1, S2 - Abdomen Abdomen: soft, non tender, bowel sounds, no guarding, no rigid, no rebound - Integumentary normal turgor - Neurologic no disoriented, no combative - Musculoskeletal normal gait - Psychiatric oriented to time, oriented to person, oriented to place, speech is normal, memory intact breast exam: BRA 36C inspection ptosis grade 2/3, no nipple inversion Palpation: Right breast: Multiple position of exam no dominant masses or nodules of concern, fibrocystic changes Right axilla: No adenopathy of concern Left breast: Multiple positional exam increased fullness upper-outer quadrant area near 10:00, no dominant masses or nodules otherwise of concern Left axilla: No adenopathy of concern Results mammogram and ultrasound results reviewed Assessment and Plan Assessment: Impression: 1. Abnormal left breast mammogram and ultrasound 2. Fullness left breast upper outer quadrant area 3. Fibrocystic breast changes Plan: 1. Ultrasound core biopsy left breast 2. Follow up after ultrasound core biopsy 3. Patient is going to stop the fish oil prior to biopsy CC: Dr. Combs encounter 30 minutes, > 50% of time in planning and counselling Time with Patient: Greater than 30
== END | disposition home or self-care (01) ==
LOC: WWCWWP 14:52
PROVIDERS: ATTEND Surgery
DX: Z53.9 Procedure and treatment not carried out, unspecified reason (principal)

== ENCOUNTER → 2019-07-01 | Outpatient (CLI) | payer MEDICARE | END | disposition home or self-care (01) | LOC: LABWHC1 12:43 | PROVIDERS: ATTEND Surgery | DX: Z11.59 Encounter for screening for other viral diseases (principal) | CPT/HCPCS: 87635 ==

== ENCOUNTER → 2019-07-06 | Day surgery (SDC) | payer MEDICARE ==
[2019-07-06 07:28] VITALS: RESP 18
[2019-07-06 09:27] VITALS: BP 164/79; PULSE 66; TEMP 97.8
--- NOTE | 2019-07-06 09:30 | USB ---
EXAMINATION TYPE: US biopsy breast VAD LT, MG diagnostic mammo LT wo CAD DATE OF EXAM: 07/06/2019 CLINICAL HISTORY: R92.8, Abnormal mammogram. Abnormal ultrasound. TECHNIQUE: Ultrasound guided core biopsy of left breast with clip placement and follow-up diagnostic two-view mammogram. COMPARISON: Prior ultrasound and mammogram March 25, 2019 and older studies. FINDINGS: The procedure of ultrasound guided core biopsy was explained to the patient. Benefits, alternatives, and risks were discussed. An informed consent was then obtained. The patient was placed in supine positioning for imaging and for the procedure. Preprocedure ultrasound redemonstrates a hypoechoic irregular roughly 1.0 cm mass at 10:00 position zone BC in the left breast just superficial to deeper pectoralis muscle. The overlying skin was prepped and draped in usual sterile fashion. Lidocaine is used as anesthetic into the skin. Lidocaine with epinephrine is used as anesthetic into the deeper tissue up to area of concern in the left breast. Under ultrasound guidance, a vacuum assisted biopsy gun device was used to obtain 3 core samples. Following this, a biopsy clip was left in lesion. The patient tolerated the procedure well without any immediate complication. The patient was kept in the radiology department for short stay after the procedure and then discharged home in stable condition. Post procedure mammogram shows successful deployment of clip corresponding to new lesion of concern on mammogram along posterior margin. IMPRESSION: Successful, uncomplicated ultrasound guided core biopsy of area of concern in the left breast, full pathology results to follow. Intermediate to high index of suspicion noted at time of procedure. Pathology Results: Malignant LEFT BREAST, ULTRASOUND GUIDED CORE BIOPSY: Invasive poorly differentiated ductal carcinoma (Grade 3). See Surgical Pathology Cancer Case Summary and Comment. Recommendation Surgical consult of the left breast. MTDD
== END ==
LOC: RADUSWWP 07:05
PROVIDERS: ATTEND Surgery
DX: C50.912 Malignant neoplasm of unspecified site of left female breast (principal); Z17.1 Estrogen receptor negative status [ER-]; R92.8 Other abnormal and inconclusive findings on diagnostic imaging of breast
CPT/HCPCS: 88305; 88342; 88341; 77065; 19083; A4648; J2001; 88374

== ENCOUNTER → 2019-07-14 | Outpatient (CLI) | payer MEDICARE ==
[2019-07-14 10:23] VITALS: BP 157/78; PULSE 66; RESP 18; TEMP 98.5
--- NOTE | 2019-07-14 11:12 | P.PN ---
Subjective Progress Note Date: 07/14/19 Principal diagnosis: Left breast cancer stage IB T1 N0 M0 G3 ER MA negative HER-2 negative Ngoc is a 69-year-old white female status post ultrasound core biopsy of the left breast lesion. The lesion is less than 2 cm in size. It was a invasive ductal carcinoma grade 3. The patient tolerated the procedure [place] [address]. Objective - Vital Signs Vital signs: Vital Signs Temp 98.5 F 07/14/19 10:20 Pulse 66 07/14/19 10:20 Resp 18 07/14/19 10:20 BP 157/78 07/14/19 10:20 Pulse Ox 93 L 07/14/19 10:20 Intake & Output 07/13/19 07/14/19 07/14/19 18:59 06:59 18:59 Weight 73.482 kg - Exam BMI 27 - Constitutional General appearance: Present: average body habitus - EENT Eyes: Present: EOMI ENT: Present: hearing grossly normal - Neck Neck: Present: normal ROM - Integumentary Integumentary Comment(s): biopsy site mild ecchymosis - Musculoskeletal Musculoskeletal: Present: gait normal - Psychiatric Psychiatric: Present: A&O x's 3, appropriate affect, intact judgment & insight - Additional findings Additional findings: Breast examination: Size 36C Ptosis grade 2/3 no nipple inversion Right breast is smaller than the left breast Left breast biopsy site mild ecchymosis, no evidence of infection or hematoma Assessment and Plan Assessment: Impression: 1. Newly diagnosed left breast stage Ib invasive ductal carcinoma 2. Asymmetry of the breasts left being larger than the right with grade 3 ptosis Plan: 1. Left breast needle localization lumpectomy via Estevez pattern reduction mammoplasty, sentinel node injection left, left sentinel node biopsy 2. Presentation of case at tumor board 3. Patient is triple negative it may be recommended she had neoadjuvant chemotherapy will contact medical oncology The patient was seen post-ultrasound core biopsy of the left breast. Options for surgery of the breast including mastectomy plus or minus reconstruction versus lumpectomy with needle localization, she wishes us to do this via onco- plastic techniques. Risks and benefits of the procedure were discussed with the patient these include but are not limited to bleeding, infection, reaction to the anesthetic. She understands that she will have asymmetry of the breast post procedure and wishes to proceed. The risks of the sentinel node biopsy include decreased sensation to the inner arm, and possible injury to the thoracodorsal and long thoracic nerves. Again she understands and wishes to proceed. Cc: Dr. Combs Encounter: 45 minutes, greater than 50% of time in counseling and planning Time with Patient: Greater than 30
== END | disposition home or self-care (01) ==
LOC: WWCWWP 10:01
PROVIDERS: ATTEND Surgery
DX: Z53.9 Procedure and treatment not carried out, unspecified reason (principal)

== ENCOUNTER 2019-07-19 09:56 | Day surgery (SDC) | payer MEDICARE ==
[2019-07-18 11:15] VITALS: BMI 26.8
[~2019-07-19 09:56] MED LIST changes: +DEXAMETHASONE SOD PHOSPHATE 10 MG/ML 1 ML VIAL IV ONE; +HEPARIN SODIUM,PORCINE 5,000 UNIT/ML 1 ML VIAL SQ ONE; +HYDROmorphone 0.5 MG/0.5 ML SYRINGE IVP PRN; +LIDOCAINE 1% (10MG/ML) FOR IV START INTRADERMA PRN; -LIDOCAINE 1% 20 ML VIAL (10MG/ML) FOR IV START INTRADERMA PRN; +MIDAZOLAM 2 MG/2 ML VIAL IV PRN; +ONDANSETRON 4 MG/2 ML VIAL IVP ONE; +Pre Op ABX Message 1 EACH MISC MISCELLANE ONE
[2019-07-19] MEDS ORDERED: ALPRAZolam 0.25 MG TAB PO ONE (10:28)
[2019-07-19 10:46] VITALS: RESP 16
[2019-07-19] MEDS ORDERED: LIDOCAINE 1% INJ 10MG/ML (20 ML MDV) SQ ONE ×2 (11:19→14:20)
[2019-07-19 11:36] VITALS: TEMP 98.3
--- NOTE | 2019-07-19 12:02 | NM ---
EXAMINATION TYPE: NM sentinel node injection DATE OF EXAM: 07/19/2019 COMPARISON: 07/06/2019 HISTORY: Biopsy-proven left breast cancer TECHNIQUE AND FINDINGS: The procedure of sentinel lymph node injection was explained to the patient. The benefits, alternatives, and risks were discussed. An informed consent was then obtained. Prepr ocedural timeout was performed. Overlying skin is cleaned with sterile alcohol. Following this, 537 uCi Tc99m Tilmanocept was inject ed in the upper outer aspect of the left nipple intradermally. The patient tolerated the procedure well without any immediate complication. The patient was kept in the radiology department for short stay after the procedure and then taken to surgery for surgical p rocedure what is presumed intraoperative gamma probe will be used for sentinel lymph node detection. IMPRESSION: Left breast radiotracer injection for sentinel node localization as above.
--- NOTE | 2019-07-19 12:41 | P.NAPBC ---
[facility] Qu[facility] - [facility] Was patient's case review presented at [facility] tumor board? If no, comment.: Yes Was patient's pathology reviewed at [facility]? If no, comment.: Yes Was breast conservation surgery offered? If no, comment.: Yes Was sentinel node biopsy offered? If no, comment.: Yes Was diagnosis confirmed by percutaneous core biopsy? If no, comment.: Yes Is patient mastectomy patient?: No [facility] Comments: [id number]? Clinical Stage: stage 1B
[2019-07-19] MEDS ORDERED: HYDROmorphone (PF) 1 MG/ML ONE (13:05)
[2019-07-19] MEDS ORDERED: MIDAZOLAM 2 MG/2 ML VIAL ONE (13:05)
[2019-07-19] MEDS ORDERED: PROPOFOL 10 MG/ML 20 ML VIAL IV ONE (13:05)
[2019-07-19] MEDS ORDERED: ePHEDrine SULFATE/0.9% NACL/PF 50 MG/5 ML SYRINGE IV ONE (13:05)
[2019-07-19] MEDS ORDERED: SUCCINYLCHOLINE CHLORIDE 100 MG/5 ML SYR IV ONE (13:05)
[2019-07-19] MEDS ORDERED: LIDOCAINE 1% INJ 10MG/ML (20 ML MDV) ONE (13:05)
[2019-07-19] MEDS ORDERED: fentaNYL (PF) 50 MCG/ML 2 ML AMP ONE (13:05)
--- NOTE | 2019-07-19 15:30 | MM ---
EXAMINATION TYPE: MG surgical specimen LT, MG pre op needle loc LT DATE OF EXAM: 07/19/2019 COMPARISON: Left breast biopsy dated 07/06/2019 CLINICAL HISTORY: Biopsy-proven left breast cancer with request for mammographic guided needle localization. TECHNIQUE: Needle localization with wire placement and surgical excision of area of concern in the left breast. FINDINGS: The procedure of needle localization with wire placement and than surgical excision was explained to the patient. Benefits, alternatives, and risks were discussed. An informed consent was then obtained. Preprocedural timeout was performed. The shortest pathway for procedure was chosen. Shortest pathway was CC from above approach. The overlying skin was prepped and draped in usual sterile fashion. 10 cc of 1% lidocaine was used as anesthetic into the skin and subcutaneous tissue up to the level of area of concern. A 7 cm needle was used. It was placed via a CC from above approach under mammographic guidance. Subsequent 90 degrees mammogram show the needle to be in satisfactory position relative to the targeted area. At this point, wire was placed and the needle was withdrawn. The wire was fixed to patient's skin. Images were marked for surgeon. The patient tolerated the procedure well without any immediate complication. The patient was kept in the radiology department for short stay after the procedure and then taken to surgery for surgical excision. Targeted biopsy marker and mammographic mass and wire are identified in specimen mammogram. The patient was kept in hospital for short stay after the procedure and then discharged home in stable condition. IMPRESSION: Successful, uncomplicated needle localization with wire placement and surgical excision of a targeted biopsy marker and mammographic mass on the known left breast invasive ductal carcinoma, full pathology results to follow. Pathology Results: Malignant A. SENTINEL LYMPH NODE, BIOPSY: Lymph node negative for metastasis. CK7 and KALEIGH immunoperoxidase stains are confirmatory (controls appropriate). B. LEFT BREAST, LUMPECTOMY: Invasive poorly differentiated ductal carcinoma (Grade 3), margins negative for malignancy. See Surgical Pathology Cancer Case Summary. C. EPITHELIAL TISSUE: Benign skin. D. LEFT BREAST TISSUE: Benign skin and subcutaneous tissue. E. LEFT BREAST, NEW MEDIAL MARGIN: Benign breast and fibroadipose tissue. Recommendation Surgical consult of the left breast. [facility]
[2019-07-19] MEDS ORDERED: LACTATED RINGERS 1,000 ML IV ONE (16:23)
--- NOTE | 2019-07-19 16:23 | P.OP ---
Date of Procedure: 07/19/19 Preoperative Diagnosis: Left breast invasive ductal carcinoma, triple negative Postoperative Diagnosis: Same Procedure(s) Performed: [place] node biopsy, needle localization lumpectomy, Estevez pattern reduction mastopexy Anesthesia: ASHLEY Surgeon: Adeline Hayes Estimated Blood Loss (ml): 20 IV fluids (ml): 800 Pathology: other (breast tissue) Condition: stable Disposition: same day Indications for Procedure: Left breast invasive ductal carcinoma Operative Findings: Fibrofatty breast tissue Description of Procedure: The patient is a 69-year-old white female diagnosed with a left breast triple negative invasive ductal carcinoma. Her breasts are ptotic and after discussion she wished us to proceed with a Estevez pattern reduction mastopexy for resection of the tumor. Initially the sentinel node biopsy was performed. The Johan counter was utilized to identify the area of greatest radioactivity. The probe was placed at this site and an incision was made. Dissection was carried deep into the axilla. A sentinel node was identified. This was resected using the Harmonic scalpel and the electrocautery device. The 10 second count was 34,268. The background count was 61. Following this no other palpable adenopathy of concern was identified and it was determined to close the axillary incision. The wound was irrigated. After assured that hemostasis was attained the deep tissues were closed using 3-0 Vicryl suture. The skin was closed using 4-0 Monocryl. Following this the breast was approached. A poor operative. The skin markings had been placed for a reduction mastopexy B[place]eo pattern incision. The pedicle was inferiorly based pedicle and approximately a centimeter distance from the inferior aspect of the incision was de-epithelialized upper abdomen at the retroareolar complex. A full-thickness incision was then made at the site of the Estevez pattern. This was carried through the skin and subcutaneous tissue until the subdermal tissue. The skin was excised at these sites. The anterior breast fascia was used as a dissection plane for the lower and lateral breast tissue dissection as well as the superior breast tissue dissection. This was dissected around the shaft of the needle. The needle was then grasped and dissection was performed around the needle removing the tumor. Radiograph the specimen revealed that the tumor had been removed and this was done after the specimen was painted for orientation. Titanium clips were placed in the area of dissection of the tumor. The medial and lateral pedicles were mobilized and closed that the area of dissection. Approximately 80 cm of tissue had been mobilized for closure of this defect. Following this the skin was brought together for closure of the Estevez pattern reduction mastopexy incision. The deep tissues were closed using 3-0 Vicryl suture. This was followed by a layer 4-0 Monocryl and this was followed by a 4-0 nylon running suture. The nipple areolar elevation was approximately 3 cm. The patient tolerated the procedure in stable condition. All instrument and sponge counts were correct at the end of the procedure.
--- NOTE | 2019-07-19 16:26 | P.DS ---
Providers Attending physician: Adeline Hayes Primary care physician: Jesse Combs Plan - Discharge Summary Discharge Rx Participant: Yes New Discharge Prescriptions: No Action [place]-3 Fatty Acids/Fish Oil [Fish Oil 1,000 mg Capsule] 1 cap PO DAILY Cinnamon Bark [Cinnamon] 500 mg PO DAILY Cholecalciferol [Vitamin D3 (25 Mcg = 1000 Iu)] 1,000 unit PO DAILY Multivitamins, Thera [Multivitamin (formulary)] 1 tab PO DAILY Calcium Carbonate [Calcium] 600 mg PO MOWEFR Discharge Medication List Cholecalciferol [Vitamin D3 (25 Mcg = 1000 Iu)] 1,000 unit PO DAILY 07/02/16 [History] Cinnamon Bark [Cinnamon] 500 mg PO DAILY 07/02/16 [History] [place]-3 Fatty Acids/Fish Oil [Fish Oil 1,000 mg Capsule] 1 cap PO DAILY 07/02/16 [History] Calcium Carbonate [Calcium] 600 mg PO MOWEFR 05/10/18 [History] Multivitamins, Thera [Multivitamin (formulary)] 1 tab PO DAILY 05/10/18 [History] Follow up Appointment(s)/Referral(s): Adeline Hayes MD [STAFF PHYSICIAN] - 1-2 Days Activity/Diet/Wound Care/Special Instructions: do not drive until seen by Dr. Luna may shower after 48 hours wear bra at al times Discharge Disposition: HOME SELF-CARE
[2019-07-19 17:39] VITALS: BP 131/67; PULSE 75
[2019-07-19] MEDS ORDERED: HYDROcodone/APAP 5-325MG 1 EACH TAB PO ONE (17:40)
== END 2019-07-19 18:09 | disposition home or self-care (01) ==
LOC: OR 09:56
PROVIDERS: ATTEND Surgery
DX: C50.912 Malignant neoplasm of unspecified site of left female breast (principal); N64.81 Ptosis of breast; L76.22 Postprocedural hemorrhage of skin and subcutaneous tissue following other procedure; N64.89 Other specified disorders of breast; G47.33 Obstructive sleep apnea (adult) (pediatric); K21.9 Gastro-esophageal reflux disease without esophagitis; F17.200 Nicotine dependence, unspecified, uncomplicated; Z17.1 Estrogen receptor negative status [ER-]; Z99.89 Dependence on other enabling machines and devices; Z88.1 Allergy status to other antibiotic agents; Z88.2 Allergy status to sulfonamides
CPT/HCPCS: 38525; 19301; 19316; 88305; 88342; 88307; 88341; 76098; 19281; 38792; A9520; J2250; J1644; J1100; J2405; J2001; J3010; J1170 ×2; J0330; J2704

== ENCOUNTER → 2019-07-22 | Outpatient (CLI) | payer MEDICARE ==
[2019-07-22 13:48] VITALS: BP 145/74; PULSE 69; RESP 18; TEMP 97.7
--- NOTE | 2019-07-22 13:58 | P.PN ---
Progress Note - Text Progress Note Date: 07/22/19 Ngoc is a 69-year-old white female status post left breast lumpectomy and sentinel node biopsy on 07-19-19. Pathology showed that the margins were negative for cancer. Lymph nodes were negative for cancer. The greatest dimension of the tumor was 9 mm. The patient is doing well postoperative. Physical exam: Lungs: Clear Heart: Regular rate and rhythm Left breast incisions: Clean and dry mild ecchymosis lateral aspect of left breast inferior incision, no evidence of any infection Impression: 1. Patient status post left breast lumpectomy sentinel node biopsy margins negative Plan: 1. Follow-up medical oncology 2. Follow-up radiation oncology 3. Follow-up here next week CC: Dr. Combs
== END | disposition home or self-care (01) ==
LOC: WWCWWP 13:35
PROVIDERS: ATTEND Surgery
DX: Z53.9 Procedure and treatment not carried out, unspecified reason (principal)

== ENCOUNTER → 2019-07-28 | Outpatient (CLI) | payer MEDICARE ==
[2019-07-28 15:23] VITALS: BP 167/83; PULSE 79; RESP 18; TEMP 98.4
--- NOTE | 2019-07-28 15:53 | P.PN ---
Progress Note - Text Progress Note Date: 07/28/19 Ngoc is a 69-year-old white female status post left breast lumpectomy and sentinel node biopsy and . Pathology showed the margins were negative for cancer. Lymph nodes were negative for cancer. Greatest dimension of the tumor was 9 mm. The patient is doing well postoperative. She was seen by medical and radiation oncology. The patient has opted to undergo radiation therapy but no chemotherapy. Physical exam: Lungs: Clear Heart: Regular rate and rhythm Incisions clean and dry/sutures removed At trifurcation point and the inferior aspect there is some mild ecchymosis/skin sloughing nipple inverted Plan: 1. Follow-up 2 weeks 2. May apply Silvadene to the area of skin sloughing if this occurs 3. Continue to follow with radiation oncology CC: DR. oCmbs
== END | disposition home or self-care (01) ==
LOC: WWCWWP 14:48
PROVIDERS: ATTEND Surgery
DX: Z53.9 Procedure and treatment not carried out, unspecified reason (principal)

== ENCOUNTER → 2019-08-12 | Outpatient (CLI) | payer MEDICARE ==
[2019-08-12 12:37] VITALS: BP 142/87; PULSE 67; RESP 18; TEMP 98.3
--- NOTE | 2019-08-12 12:44 | P.PN ---
Progress Note - Text Ngoc is a 69-year-old white female status post left breast lumpectomy and sentinel node biopsy and . Pathology showed the margins were negative for cancer. Lymph nodes were negative for cancer. Greatest dimension of the tumor was 9 mm. The patient is doing well postoperative. She was seen by medical and radiation oncology. The patient has opted to undergo radiation therapy but no chemotherapy. She is not going to have any hormonal therapy. Physical exam: Lungs: Clear Heart: Regular rate and rhythm Incisions clean and dry/sutures removed At trifurcation point and the inferior aspect there was some mild ecchymosis/skin sloughing which has improved nipple inverted Plan: 1. Follow-up October to consider symmetry procedure of the right breast 2. May apply Silvadene to the area of skin sloughing if this occurs 3. Continue to follow with radiation oncology CC: DR. Combs
== END | disposition home or self-care (01) ==
LOC: WWCWWP 12:24
PROVIDERS: ATTEND Surgery
DX: Z53.9 Procedure and treatment not carried out, unspecified reason (principal)

== ENCOUNTER → 2019-10-20 | Outpatient (CLI) | payer MEDICARE ==
[2019-10-20 14:49] VITALS: BP 139/74; PULSE 85; RESP 18; TEMP 98.1
--- NOTE | 2019-10-20 15:09 | P.PN ---
Subjective Progress Note Date: 10/20/19 Principal diagnosis: [id number]; left breast invasive ductal cancer; stage IB Ngoc is a 69-year-old white female who had a routine screening mammogram 03/14/2019. This revealed a new 1 cm lobulated high density mass in the central upper inner quadrant in the left breast posteriorly. Additional mammogram and ultrasound were performed and no lesions of concern were noted in the right breast. Additional mammogram and ultrasound revealed persistence of the mass in the left breast and this corresponded to a 13 x 8 mm solid hypoechoic taller and wide lesion at 10:00 in the left breast on ultrasound. A 6 and 5 mm lymph node at the axillary tail were noted. Ultrasound core biopsy of the left breast was recommended. Ultrasound-guided core biopsy was performed on 720. This revealed invasive poorly differentiated grade 3 ductal carcinoma. This was ER negative. Negative HER-2/itz negative. The patient does feel anything of concern in her breast. She has no history of any recent trauma or infection in her breast. She has not had any breast biopsies in the past. She underwent a left breast lumpectomy and sentinel biopsy and 69. Pathology showed margins were negative for cancer. Lymph nodes were negative for cancer. Greatest dimension of the tumor was 9 mm. She has done well postoperatively and was seen by medical and radiation oncology. She opted to undergo radiation therapy but no hormonal or chemotherapy. She completed radiation therapy on September 16. Caffeine: Approximately three quarters cup of coffee/ day The patient does not smoke and is not exposed to secondhand smoke The patient eats chocolate dark chocolate/small piece daily she does not take any hormones or hormone therapy Hormonal History: menarche:10 , breast fed: none, age at first : 16 menopause: 48 BCP: 3 years hormones: none Surgical history: 1. Bilateral cataract 2. Eyelid 2. Tonsils 3. left breast lumpectomy and SNB Medical history: None Social history: Smoke: Negative Alcohol: Occasional Drugs: Negative - Constitutional Constitutional: Reports sweats, Denies chills, Denies fever - EENT Eyes: denies blurred vision, denies pain Ears: bilateral: decreased hearing, tinnitus Ears, nose, mouth and throat: Denies headache, Denies sore throat - Breasts Breasts: bilateral: as per HPI - Cardiovascular Cardiovascular: Denies chest pain, Denies shortness of breath - Respiratory Respiratory: Denies cough - Gastrointestinal Gastrointestinal: Denies abdominal pain, Denies diarrhea, Denies nausea, Denies vomiting - Genitourinary (Female) Genitourinary: Denies dysuria, Denies hematuria - Menstruation Menstruation: Reports postmenopausal - Musculoskeletal Comment: arthritis - Integumentary Integumentary: Denies pruritus, Denies rash - Neurological Neurological: Denies numbness, Denies weakness - Psychiatric Psychiatric: Denies anxiety, Denies depression - Endocrine Endocrine: Denies fatigue, Denies weight change - Hematologic/Lymphatic Comment: none - Allergic/Immunologic Allergic/Immunologic: Reports as per HPI Objective - Vital Signs Vital signs: Vital Signs Temp 98.1 F 10/20/19 14:46 Pulse 85 10/20/19 14:46 Resp 18 10/20/19 14:46 BP 139/74 10/20/19 14:46 Pulse Ox 97 10/20/19 14:46 Intake & Output 10/19/19 10/20/19 10/20/19 18:59 06:59 18:59 Weight 74.389 kg - Exam BMI 27.3 - Constitutional General appearance: Present: average body habitus - EENT Eyes: Present: EOMI ENT: Present: hearing grossly normal - Neck Neck: Present: normal ROM - Respiratory Respiratory: bilateral: CTA - Cardiovascular Rhythm: regular Heart sounds: normal: S1, S2 - Gastrointestinal General gastrointestinal: Present: normal bowel sounds, soft - Integumentary Integumentary: Present: normal turgor - Musculoskeletal Musculoskeletal: Present: gait normal - Psychiatric Psychiatric: Present: A&O x's 3, appropriate affect, intact judgment & insight - Additional findings Additional findings: beast exam: Bra: 36C inspection: Right breast ptosis grade 2/3, left breast ptosis grade 1/2 Palpation: Right breast: Multi-positional exam fibrocystic changes, no dominant masses or nodules of concern Right axilla: No adenopathy of concern Left breast: Prominent nipple areolar complex, multiple positional exam fibrocystic changes no dominant masses or nodules of concern Left axilla: No adenopathy of concern Assessment and Plan Assessment: Impression: 1. Patient status post left breast lumpectomy/sentinel node biopsy via Estevez pattern reduction mammoplasty approach, no evidence of recurrent cancer 2. Patient is finished radiation therapy of the left breast 3. Fibrocystic breast changes 4. Asymmetry of the breast related to left breast lumpectomy Plan: 1. Patient is going to continue to follow with radiation oncology 2. Patient to continue to follow here 3. At this time patient is not interested in a symmetry procedure of the right breast CC: Dr. Combs encounter 20 minutes, > 50% of time in planning and counselling
== END | disposition home or self-care (01) ==
LOC: WWCWWP 14:38
PROVIDERS: ATTEND Surgery
DX: Z53.9 Procedure and treatment not carried out, unspecified reason (principal)

== ENCOUNTER → 2020-03-16 | Outpatient (CLI) | payer MEDICARE ==
--- NOTE | 2020-03-16 11:47 | MM ---
Reason for exam: additional evaluation requested from prior study. Last mammogram was performed 8 months ago. History: Patient is postmenopausal and has history of breast cancer at age 69. Malignant MG pre op needle loc LT of the left breast, July 19, 2019. Lumpectomy of the left breast, July 19, 2019. Malignant US biopsy breast VAD LT of the left breast, July 06, 2019. Took estrogen for 3 years beginning at age 58. Physical Findings: Nurse did not find any significant physical abnormalities on exam. MG 3D Diag Mammo W/Cad DAVID Bilateral CC and MLO view(s) were taken. XCCL view(s) were taken of the left breast. Prior study comparison: July 06, 2019, left breast MG diagnostic mammo LT wo CAD. March 25, 2019, left breast MG 3d work up w/cad LT. The breast tissue is heterogeneously dense. This may lower the sensitivity of mammography. No suspicious calcifications or masses are seen. Post operative lumpectomy changes left breast. These results were verbally communicated with the patient and result sheet given to the patient on 03/16/20. ASSESSMENT: Benign, BI-RAD 2 RECOMMENDATION: Follow-up diagnostic mammogram of both breasts in 1 year.
== END | disposition home or self-care (01) ==
LOC: RADMAMWWP 10:03
PROVIDERS: ATTEND Surgery
DX: Z08 Encounter for follow-up examination after completed treatment for malignant neoplasm (principal); Z85.3 Personal history of malignant neoplasm of breast
CPT/HCPCS: 77066; G0279; 77062

== ENCOUNTER → 2020-03-30 | Outpatient (CLI) | payer MEDICARE ==
--- NOTE | 2020-03-30 11:38 | P.PN ---
Subjective Progress Note Date: 03/30/20 Principal diagnosis: status post left breat cancer Stgae 1 [id number]; left breast invasive ductal cancer; stage IB Ngoc is a 70-year-old white female who had a routine screening mammogram 03/14/2019. This revealed a new 1 cm lobulated high density mass in the central upper inner quadrant in the left breast posteriorly. Additional mammogram and ultrasound were performed and no lesions of concern were noted in the right breast. Additional mammogram and ultrasound revealed persistence of the mass in the left breast and this corresponded to a 13 x 8 mm solid hypoechoic taller and wide lesion at 10:00 in the left breast on ultrasound. A 6 and 5 mm lymph node at the axillary tail were noted. Ultrasound core biopsy of the left breast was recommended. Ultrasound-guided core biopsy was performed on . This revealed invasive poorly differentiated grade 3 ductal carcinoma. This was ER negative. Negative HER-2/itz negative. The patient does feel anything of concern in her breast. She has no history of any recent trauma or infection in her breast. She has not had any breast biopsies in the past. She underwent a left breast lumpectomy and sentinel biopsy and 6919. Pathology showed margins were negative for cancer. Lymph nodes were negative for cancer. Greatest dimension of the tumor was 9 mm. She has done well postoperatively and was seen by medical and radiation oncology. She opted to undergo radiation therapy but no hormonal or chemotherapy. She completed radiation therapy on September 16. Patient had a bilateral mammogram on 2520 this was felt to be benign BIRADS 2. The patient is not complaining of any loss masses or nodules in either breast. She is not complaining of any nipple discharge or skin changes. She does have radiation changes of the skin on the left breast that she is not worried about this. Caffeine: Approximately three quarters cup of coffee/ day The patient does not smoke and is not exposed to secondhand smoke The patient eats chocolate dark chocolate/small piece daily she does not take any hormones or hormone therapy Hormonal History: menarche:10 , breast fed: none, age at first : 16 menopause: 48 BCP: 3 years hormones: none Surgical history: 1. Bilateral cataract 2. Eyelid 2. Tonsils 3. left breast lumpectomy and SNB Medical history: None Social history: Smoke: Negative Alcohol: Occasional Drugs: Negative - Constitutional Constitutional: Reports sweats, Denies chills, Denies fever - EENT Eyes: denies blurred vision, denies pain Ears: bilateral: decreased hearing, tinnitus Ears, nose, mouth and throat: Denies headache, Denies sore throat - Breasts Breasts: bilateral: as per HPI - Cardiovascular Cardiovascular: Denies chest pain, Denies shortness of breath - Respiratory Respiratory: Denies cough - Gastrointestinal Gastrointestinal: Denies abdominal pain, Denies diarrhea, Denies nausea, Denies vomiting - Genitourinary (Female) Genitourinary: Denies dysuria, Denies hematuria - Menstruation Menstruation: Reports postmenopausal - Musculoskeletal Comment: arthritis - Integumentary Integumentary: Denies pruritus, Denies rash - Neurological Neurological: Denies numbness, Denies weakness - Psychiatric Psychiatric: Denies anxiety, Denies depression - Endocrine Endocrine: Denies fatigue, Denies weight change - Hematologic/Lymphatic Comment: none - Allergic/Immunologic Allergic/Immunologic: Reports as per HPI Objective - Exam BMI 28 - Constitutional General appearance: Present: average body habitus - EENT Eyes: Present: EOMI ENT: Present: hearing grossly normal - Neck Neck: Present: normal ROM - Respiratory Respiratory: bilateral: CTA - Cardiovascular Rhythm: regular Heart sounds: normal: S1, S2 - Gastrointestinal General gastrointestinal: Present: normal bowel sounds, soft - Integumentary Integumentary: Present: normal turgor - Musculoskeletal Musculoskeletal: Present: gait normal - Psychiatric Psychiatric: Present: A&O x's 3, appropriate affect, intact judgment & insight - Additional findings Additional findings: breast exam: BRA: 36C inspection: Right breast larger than the left breast ptosis grade 3, left breast ptosis grade 1/2 Palpation: Right breast: Multiple positional exam fibrocystic changes, no dominant masses or nodules of concern Right axilla: No adenopathy of concern left breast: Radiation changes and scar from prior surgery but no dominant masses or notches of concern a multi-positional exam well-healed scars Left axilla: No adenopathy of concern Assessment and Plan Assessment: Impression: 1. status post left breast Stage I radiation but no chemo or hormonal therapy, no evidence of recurrence Plan: 1. Repeat breast examination in 4 months 2. Bilateral mammogram in 1 year 3. Patient to call sooner if any questions or concerns At this time the patient is not interested in a symmetry procedure. CC: Dr. Combs Encounter 15 minutes, time spent in reviewing medical records, physical examination, and counseling.
[2020-03-30 11:41] VITALS: BP 174/78; PULSE 72; RESP 18
== END | disposition home or self-care (01) ==
LOC: WWCWWP 11:14
PROVIDERS: ATTEND Surgery
DX: Z85.3 Personal history of malignant neoplasm of breast (principal); N60.11 Diffuse cystic mastopathy of right breast

== ENCOUNTER 2020-07-04 10:28 | Observation (INO) | payer MEDICARE ==
[2020-07-04] MEDS ORDERED: ASPIRIN 81 MG PO STA (11:05)
[2020-07-04] MEDS ORDERED: FAMOTIDINE 20 MG/2 ML VIAL IV STA (11:05)
[2020-07-04] MEDS ORDERED: MAG HYDROX/AL HYDROX/SIMETH 30 ML, HYOSCYAMINE ELIXIR 10 ML PO STA ×2 (11:06)
[2020-07-04 11:23] LABS: Basophils % (A) 1 %; Eosinophils # (A) 0.2 k/uL (0-0.7); Eosinophils % (A) 6 %; HCT 42.1 % (34.0-46.0); HGB 14.1 gm/dL (11.4-16.0); Lymphocytes # (A) 1.1 k/uL (1.0-4.8); Lymphocytes % (A) 27 %; MCH 29.6 pg (25.0-35.0); MCHC 33.5 g/dL (31.0-37.0); MCV 88.4 fL (80.0-100.0); Monocytes # (A) 0.3 k/uL (0-1.0); Monocytes % (A) 6 %; Neutrophils # (A) 2.5 k/uL (1.3-7.7); Neutrophils % (A) 59 %; Platelet Count 248 k/uL (150-450); RBC 4.76 m/uL (3.80-5.40); RDW 13.2 % (11.5-15.5); WBC 4.2 k/uL (3.8-10.6)
--- NOTE | 2020-07-04 11:30 | ED ---
Chest Pain HPI - General Source: patient, RN notes reviewed Mode of arrival: ambulatory Limitations: no limitations <Corona Lares - Last Filed: 07/04/20 12:35> <James Bae - Last Filed: 07/04/20 12:42> - General Chief Complaint: Chest Pain Stated Complaint: chest pressure Time Seen by Provider: 07/04/20 10:36 - History of Present Illness Initial Comments: 70-year-old female presents emergency Department with chief complaint of chest discomfort. Patient has been present for over one week. Patient states not getting better. She thought it was reflux it's worse when she lays down states that she's been on omeprazole with no relief. Patient has no prior cardiac disease she did have a chemical stress test 2 years ago which was negative. Patient denies hypertension hyperlipidemia and diabetes. She has no complaints of leg pain leg swelling no history of PE or DVT. Patient was seen by PCP [place] sent over for further evaluation. (Corona Lares) - Related Data Home Medications Medication Instructions Recorded Confirmed Cholecalciferol [Vitamin D3 (25 1,000 unit PO QAM 07/02/16 03/30/20 Mcg = 1000 Iu)] Cinnamon Bark [Cinnamon] 500 mg PO QAM 07/02/16 03/30/20 [place]-3 Fatty Acids/Fish Oil [Fish 1 cap PO QAM 07/02/16 03/30/20 Oil 1,000 mg Capsule] Calcium Carbonate [Calcium] 600 mg PO MOWEFR 05/10/18 03/30/20 Multivitamins, Thera [Multivitamin 1 tab PO QAM 05/10/18 03/30/20 (formulary)] Ascorbic Acid [Vitamin C] 1,000 mg PO DAILY 03/30/20 03/30/20 Allergies Allergy/AdvReac Type Severity Reaction Status Date / Time cephalexin [From Keflex] Allergy Rash/Hives Verified 07/04/20 10:31 sulfamethoxazole Allergy Rash/Hives Verified 07/04/20 10:31 [From Bactrim] trimethoprim [From Bactrim] Allergy Rash/Hives Verified 07/04/20 10:31 Review of Systems ROS Other: All systems not noted in ROS Statement are negative. <Corona Lares - Last Filed: 07/04/20 12:35> ROS Other: All systems not noted in ROS Statement are negative. <James Bae - Last Filed: 07/04/20 12:42> ROS Statement: Those systems with pertinent positive or pertinent negative responses have been documented in the HPI. EKG Findings - EKG Comments: EKG Findings:: EKG performed at 11:03 normal sinus rhythm rate of 61. 198 QRS 148 QT/QTC 480/483 <Corona Lares - Last Filed: 07/04/20 12:35> Past Medical History Past Medical History: GERD/Reflux, Hearing Disorder / Deafness, Osteoarthritis (OA), Sleep Apnea/CPAP/BIPAP Additional Past Medical History / Comment(s): arthritis History of Any Multi-Drug Resistant Organisms: None Reported Past Surgical History: Tonsillectomy Additional Past Surgical History / Comment(s): bilateral cataractswith implants , bilat eyelid surgery, left breast core biopsy Past Anesthesia/Blood Transfusion Reactions: No Reported Reaction Additional Past Anesthesia/Blood Transfusion Reaction / Comment(s): Never had blood transfusion Past Psychological History: No Psychological Hx Reported Smoking Status: Never smoker Past Alcohol Use History: Occasional Past Drug Use History: None Reported - Past Family History Mother Family Medical History: Coronary Artery Disease (CAD) Additional Family Medical History / Comment(s): CABG <Corona Lares - Last Filed: 07/04/20 12:35> General Exam Limitations: no limitations General appearance: alert, in no apparent distress Head exam: Present: atraumatic, normocephalic, normal inspection Eye exam: Present: normal appearance, PERRL, EOMI. Absent: scleral icterus, conjunctival injection, periorbital swelling ENT exam: Present: normal exam, normal oropharynx, mucous membranes moist Neck exam: Present: normal inspection, full ROM. Absent: tenderness, meningismus, lymphadenopathy Respiratory exam: Present: normal lung sounds bilaterally. Absent: respiratory distress, wheezes, rales, rhonchi, stridor Cardiovascular Exam: Present: regular rate, normal rhythm, normal heart sounds. Absent: systolic murmur, diastolic murmur, rubs, gallop, clicks GI/Abdominal exam: Present: soft, normal bowel sounds. Absent: distended, tenderness, guarding, rebound, rigid <Corona Lares - Last Filed: 07/04/20 12:35> Course <James Bae - Last Filed: 07/04/20 12:42> Vital Signs 07/04/20 07/04/20 07/04/20 10:32 11:11 11:43 Temperature 98.0 F Pulse Rate 63 69 Respiratory 16 16 18 Rate Blood Pressure 190/86 O2 Sat by Pulse 98 100 Oximetry - Reevaluation(s) Reevaluation #1: 07/04/20 12:42 PA supervision: I did personally evaluate this case patient presented with complaints of her EKG shows no acute changes. Initial enzymes are negative. Patient was sent over from the(primary doctor office. Patient will be admitted to Dr. Iniguez. I do agree with the assessment and plan. (James Bae) Chest Pain MDM <Corona Lares - Last Filed: 07/04/20 12:35> - MDM 68-year-old presented for chest pain. Patient has left bundle with no acute changes patient has extensive family history patient will be admitted for cardiac rule out. (Corona Lares) Disposition <Corona Lares - Last Filed: 07/04/20 12:35> <James Bae - Last Filed: 07/04/20 12:42> Clinical Impression: Chest pain Disposition: ADMITTED IP TO THIS HOSP Condition: Fair Referrals: Jesse Combs DO [Primary Care Provider] - 1-2 days
[2020-07-04 11:33] LABS: INR 0.9 (<1.2); Partial Thromboplastin Time 24.8 sec (22.0-30.0)
[2020-07-04 11:35] LABS: Albumin 4.7 g/dL (3.5-5.0); Calcium 9.9 mg/dL (8.4-10.2); Magnesium 2.1 mg/dL (1.6-2.3); Potassium 4.7 mmol/L (3.5-5.1); Total Bilirubin 0.4 mg/dL (0.2-1.3); Total Protein 7.4 g/dL (6.3-8.2)
--- NOTE | 2020-07-04 11:41 | XR ---
EXAMINATION TYPE: XR chest 2V DATE OF EXAM: 07/04/2020 COMPARISON: Chest x-ray May 10, 2018 HISTORY: Chest pain and pressure. TECHNIQUE: Frontal and lateral views of the chest are obtained. FINDINGS: There is chronic parenchymal changes bilaterally without suspicious focal air space opacit y, pleural effusion, or pneumothorax seen. The cardiac silhouette size is stable and within normal l imits. The osseous structures are intact. IMPRESSION: No acute cardiopulmonary process. No significant change from prior.
[2020-07-04] MEDS ORDERED: NITROGLYCERIN SL TABS 0.4 MG TAB SUBLINGUAL PRN (12:36)
[2020-07-04] MEDS ORDERED: HEPARIN SODIUM 1,000 UN/ML (10ML VL) IV ONE (12:36)
[2020-07-04] MEDS ORDERED: HEPARIN SOD,PORK IN 0.45% NACL 25,000 UNIT in 0.45% NACL 1 250ML.BAG IV SCH (12:45)
[2020-07-04] MEDS: PANTOPRAZOLE 40 MG/10 ML VIAL IVP SCH (13:03)
--- NOTE | 2020-07-04 20:08 | P.HPIM ---
History of Present Illness H&P Date: 07/04/20 Chief Complaint: Chest pain History of presenting complaint: This is a pretty pleasant 70-year-old patient, follows with Dr. Combs. Chronic stable medical conditions include GERD, hard of hearing with hearing aids, prostatitis, obstructive sleep apnea uses CPAP machine. Patient presents with 2 weeks of chest pressure grading across the back. Radiating. Especially comes on with activities including yard work. And better with rest. No other radiation. Denies any dizziness or light tenderness. Occasional perspiration occasional nausea. Patient admitted with unstable angina. No prior cardiac history. In the remote boss has had a negative stress test. Review of systems: GEN.: Tired EYES: None HEENT: None NECK: None RESPIRATORY: None CARDIOVASCULAR: As above GASTROINTESTINAL: None GENITOURINARY: None MUSCULOSKELETAL: Joint pains LYMPHATICS: None HEMATOLOGICAL: None PSYCHIATRY: None NEUROLOGICAL: None Past medical history to include: GERD, hard of hearing with hearing aids, osteoarthritis, obstructive sleep apnea with CPAP Social history: Does not smoke. Alcohol occasionally. . 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 Physical examination: VITAL SIGNS: 98, 63, 16, 1 44 x 65, 97% room air GENERAL: BMI 27.6, laying in bed, not in distress. EYES: Pupils equal. Conjunctiva normal. HEENT: External appearance of nose and ears normal, oral cavity grossly normal. NECK: JVD not raised; masses not palpable. HEART: First and second heart sounds are normal; no edema. LUNGS: Respiratory rate normal; clear to auscultation. ABDOMEN: Soft, nontender, liver spleen not palpable, no masses palpable. PSYCH: Alert and oriented x3; mood and affect normal. MUSCULAR skeletal: Evidence of OA NEUROLOGICAL: Cranial nerves grossly intact; no facial asymmetry, power and sensation grossly intact. LYMPHATICS: No lymph nodes palpable in the axilla and neck INVESTIGATIONS, reviewed in the clinical context: WBC 4.2 hemoglobin 14.1 platelets 248 potassium 4.7 creatinine 0.78 Troponin I 3 negative Coronavirus [PCR]-not detected EKG tracing personally reviewed by me-normal sinus rhythm, left bundle-branch block pattern Chest x-ray film personally reviewed by me-lung haro clear Assessment and plan: -Unstable angina in a patient presented with cardiac sounding presentation. Risk factors include positive family history, postmenopausal, Troponins are negative. Patient will at least need a stress test. Started aspirin. IV heparin -IV heparin monitoring Follow PTT -GERD Use Pepcid when necessary -Primary osteoarthritis Use Tylenol when necessary -Obstructive sleep apnea Continue with CPAP Care was discussed with the patient. Questions answered. Cardiology consulted.. Past Medical History Past Medical History: GERD/Reflux, Hearing Disorder / Deafness, Osteoarthritis (OA), Sleep Apnea/CPAP/BIPAP Additional Past Medical History / Comment(s): arthritis History of Any Multi-Drug Resistant Organisms: None Reported Past Surgical History: Tonsillectomy Additional Past Surgical History / Comment(s): bilateral cataractswith implants , bilat eyelid surgery, left breast core biopsy Past Anesthesia/Blood Transfusion Reactions: No Reported Reaction Additional Past Anesthesia/Blood Transfusion Reaction / Comment(s): Never had blood transfusion Past Psychological History: No Psychological Hx Reported Additional Psychological History / Comment(s): . Smoking Status: Never smoker Past Alcohol Use History: Occasional Additional Past Alcohol Use History / Comment(s): smoked for a couple yrs as teen, 1 pack/week Past Drug Use History: None Reported - Past Family History Mother Family Medical History: Coronary Artery Disease (CAD) Additional Family Medical History / Comment(s): CABG Medications and Allergies Home Medications Medication Instructions Recorded Confirmed Type Cholecalciferol [Vitamin D3 (25 1,000 unit PO BID@0800,1200 07/02/16 07/04/20 History Mcg = 1000 Iu)] Cinnamon Bark [Cinnamon] 500 mg PO DAILY 07/02/16 07/04/20 History [place]-3 Fatty Acids/Fish Oil [Fish 1 cap PO DAILY 07/02/16 07/04/20 History Oil 1,000 mg Capsule] Multivitamins, Thera [Multivitamin 1 tab PO DAILY 05/10/18 07/04/20 History (formulary)] Ascorbic Acid [Vitamin C] 1,000 mg PO DAILY 03/30/20 07/04/20 History Zinc 50 mg PO DAILY 07/04/20 07/04/20 History Allergies Allergy/AdvReac Type Severity Reaction Status Date / Time cephalexin [From Keflex] Allergy Rash/Hives Verified 07/04/20 13:23 sulfamethoxazole Allergy Rash/Hives Verified 07/04/20 13:23 [From Bactrim] trimethoprim [From Bactrim] Allergy Rash/Hives Verified 07/04/20 13:23 Physical Exam Vitals: Vital Signs Temp Pulse Pulse Resp BP BP Pulse Ox 07/04/20 16:43 97.9 F 67 18 160/78 96 07/04/20 15:57 76 18 144/65 97 07/04/20 13:04 80 18 169/88 100 07/04/20 11:43 69 18 190/86 100 07/04/20 11:11 16 07/04/20 10:32 98.0 F 63 16 98 Intake and Output 07/04/20 07/04/20 07/04/20 06:59 14:59 22:59 Intake Total 302.348 Balance 302.348 Intake: Intake, IV Titration 62.348 Amount Heparin Sod,Pork in 0.45% 62.348 NaCl 25,000 unit In 0.45 % NaCl 1 250ml.bag @ 12 UNITS/KG/HR 9.036 mls/hr IV .Q24H [facility] Rx#: [id number] Oral 240 Other: Weight 75.296 kg 75.296 kg Results CBC & Chem 7: 07/04/20 11:14 07/04/20 11:14 Labs: Abnormal Lab Results - Last 24 Hours (Table) 07/04/20 07/04/20 Range/Units 11:14 19:19 APTT 48.2 H (22.0-30.0) sec Chloride 108 H (98-107) mmol/L Glucose 103 H (74-99) mg/dL Thrombosis Risk Factor Assmnt - Choose All That Apply Other Risk Factors: Yes Each Risk Factor Represents 2 Points: Age 61-74 years Thrombosis Risk Factor Assessment Total Risk Factor Score: 2 Thrombosis Risk Factor Assessment Level: Low Risk
[2020-07-04] MEDS: MELATONIN 3 MG TABLET PO PRN (23:35)
[2020-07-05] MEDS ORDERED: ASPIRIN 325 MG TAB PO SCH (09:00)
[2020-07-05] MEDS: LOSARTAN 50 MG TAB PO SCH (09:22)
[2020-07-05] MEDS: ASPIRIN 81 MG PO SCH (09:23)
[2020-07-05] MEDS: PANTOPRAZOLE 40 MG/10 ML VIAL IVP SCH (10:45)
[2020-07-05 12:28] LABS: Chol/HDL Ratio 2.58; LDL Cholesterol,Calculated 99.6 mg/dL (0.0-131.0); VLDL Calculation 17.4 mg/dL (5.00-40.00)
--- NOTE | 2020-07-05 13:34 | P.CRDCN ---
History of Present Illness History of present illness: HISTORY OF PRESENTING ILLNESS This is a pleasant 70-year-old female past medical history significant for GERD, obstructive sleep apnea, osteoarthritis, left bundle branch block. 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 We have been asked to see in consultation for chest pain. Patient is seen and examined at bedside, no acute distress. Patient states that she has been having midsternal chest pain for about 1 week. It is off/on intermittently. Her chest pain has not improved over the past 2 weeks. She thought it was acid reflux, however, it she did not have any relief with her Omeprazole. She did notice that when she was gardening and doing out door activities that her chest pain worsened. Her pain is non-radiating. She does have associated shortness of breath. She states she did go to her PCP, but does not remember what her EKG showed or what her BP was. Patient denies history of cardiac disease, VA, stroke, diabetes, dyslipidemia, hypertension. Family history of coronary artery disease with her mother having bypass surgery in her 70s. She is a non-smoker (smoked last in her teens). Patient presented to the hospital in 05/2018 with chest pain. She underwent Lexiscan stress test which was negative for reversible ischemia, revealed fixed diminished perfusion along the septal wall could represent old infarct. Echocardiogram at that time revealed left ventricular systolic function is normal with an EF 55-60%, mild mitral regurgitation, mild tricuspid regurgitation. On admission, patient's BP 190/86, heart rate 69, afebrile, maintaining oxygen saturation 96-100% on room air DIAGNOSTICS EKG reveals sinus rhythm HR 61, left bundle branch block, left axis deviation. No acute changes. Prior EKG in 2019 looks similar Telemetry tracings indicate sinus mechanism, no arrhythmia noted Chest xray No acute cardiopulmonary process Laboratory reviewed, CBC unremarkable, troponins negative 4, proBNP 135, sodium 141, potassium 4.7, serum creatinine 0.78, BUN 17, magnesium 2.1, COVID-19 negative Current home daily medications include Fish oil, mulivitamin, cinnamon, vitamin D3, Vitamin C REVIEW OF SYSTEMS At the time of my exam: CONSTITUTIONAL: Denies fever or chills. CARDIOVASCULAR: Positive chest pain shortness of breath,Denies orthopnea, PND or palpitations. RESPIRATORY: Denies cough. GASTROINTESTINAL: Denies abdominal pain, diarrhea, constipation, nausea or vomiting. MUSCULOSKELETAL: Denies myalgias. NEUROLOGIC: Denies numbness, tingling, headacbe or weakness. ENDOCRINE: Denies fatigue, weight change, polydipsia or polyurina. GENITOURINARY: Denies burning, hematuria or urgency with micturation. HEMATOLOGIC: Denies history of anemia or bleeding. PHYSICAL EXAMINATION Blood pressure 160/75 heart rate 62 afebrile and maintaining oxygen saturation 96% on room air CONSTITUTIONAL: No apparent distress. HEENT: Head is normocephalic. Pupils are equal, round. Sclerae anicteric. Mucous membranes of the mouth are moist. No JVD. No carotid bruit. CHEST EXAMINATION: Lungs are clear to auscultation. No chest wall tenderness is noted on palpation or with deep breathing. HEART EXAMINATION: Regular rate and rhythm. S1, S2 heard. No murmurs, gallops or rub. ABDOMEN: Soft, nontender. Positive bowel sounds. EXTREMITIES: 2+ peripheral pulses, no lower extremity edema and no calf tenderness. NEUROLOGIC EXAMINATION: Patient is awake, alert and oriented x3. ASSESSMENT Chest pain, atypical, acute coronary syndrome has been ruled out Left bundle branch block, chronic Family history of coronary artery disease with her mother having bypass surgery in her 70s. Hypertension PLAN Obtain 2D echocardiogram Continue cardiac telemetry Start Losartan 50mg daily Aspirin 81mg daily Check lipid panel Repeat EKG if patient experiences increased chest pain Further recommendations to follow Nurse Practitioner note has been reviewed, I agree with a documented findings and plan of care. Patient was seen and examined. Past Medical History Past Medical History: GERD/Reflux, Hearing Disorder / Deafness, Osteoarthritis (OA), Sleep Apnea/CPAP/BIPAP Additional Past Medical History / Comment(s): arthritis History of Any Multi-Drug Resistant Organisms: None Reported Past Surgical History: Tonsillectomy Additional Past Surgical History / Comment(s): bilateral cataractswith implants , bilat eyelid surgery, left breast core biopsy Past Anesthesia/Blood Transfusion Reactions: No Reported Reaction Additional Past Anesthesia/Blood Transfusion Reaction / Comment(s): Never had blood transfusion Past Psychological History: No Psychological Hx Reported Additional Psychological History / Comment(s): . Smoking Status: Never smoker Past Alcohol Use History: Occasional Additional Past Alcohol Use History / Comment(s): smoked for a couple yrs as teen, 1 pack/week Past Drug Use History: None Reported - Past Family History Mother Family Medical History: Coronary Artery Disease (CAD) Additional Family Medical History / Comment(s): CABG Medications and Allergies Home Medications Medication Instructions Recorded Confirmed Type Cholecalciferol [Vitamin D3 (25 1,000 unit PO BID@0800,1200 07/02/16 07/04/20 History Mcg = 1000 Iu)] Cinnamon Bark [Cinnamon] 500 mg PO DAILY 07/02/16 07/04/20 History [place]-3 Fatty Acids/Fish Oil [Fish 1 cap PO DAILY 07/02/16 07/04/20 History Oil 1,000 mg Capsule] Multivitamins, Thera [Multivitamin 1 tab PO DAILY 05/10/18 07/04/20 History (formulary)] Ascorbic Acid [Vitamin C] 1,000 mg PO DAILY 03/30/20 07/04/20 History Zinc 50 mg PO DAILY 07/04/20 07/04/20 History Allergies Allergy/AdvReac Type Severity Reaction Status Date / Time cephalexin [From Keflex] Allergy Rash/Hives Verified 07/04/20 13:23 sulfamethoxazole Allergy Rash/Hives Verified 07/04/20 13:23 [From Bactrim] trimethoprim [From Bactrim] Allergy Rash/Hives Verified 07/04/20 13:23 Physical Exam Vitals: Vital Signs Temp Pulse Pulse Resp BP BP Pulse Ox 07/04/20 16:43 97.9 F 67 18 160/78 96 07/04/20 15:57 76 18 144/65 97 07/04/20 13:04 80 18 169/88 100 07/04/20 11:43 69 18 190/86 100 07/04/20 11:11 16 07/04/20 10:32 98.0 F 63 16 98 Intake and Output 07/04/20 07/04/20 07/04/20 06:59 14:59 22:59 Other: Weight 75.296 kg 75.296 kg Results 07/04/20 11:14 07/04/20 11:14 Cardiac Enzymes 07/04/20 07/04/20 07/04/20 Range/Units 11:14 11:14 13:59 AST 30 (14-36) U/L Troponin I <0.012 <0.012 (0.000-0.034) ng/mL Coagulation 07/04/20 Range/Units 11:14 PT 10.0 (9.0-12.0) sec APTT 24.8 (22.0-30.0) sec CBC 07/04/20 Range/Units 11:14 WBC 4.2 (3.8-10.6) k/uL RBC 4.76 (3.80-5.40) m/uL Hgb 14.1 (11.4-16.0) gm/dL Hct 42.1 (34.0-46.0) % Plt Count 248 (150-450) k/uL Comprehensive Metabolic Panel 07/04/20 Range/Units 11:14 Sodium 141 (137-145) mmol/L Potassium 4.7 (3.5-5.1) mmol/L Chloride 108 H (98-107) mmol/L Carbon Dioxide 26 (22-30) mmol/L BUN 17 (7-17) mg/dL Creatinine 0.78 (0.52-1.04) mg/dL Glucose 103 H (74-99) mg/dL Calcium 9.9 (8.4-10.2) mg/dL AST 30 (14-36) U/L ALT 19 (4-34) U/L Alkaline Phosphatase 76 (38-126) U/L Total Protein 7.4 (6.3-8.2) g/dL Albumin 4.7 (3.5-5.0) g/dL Current Medications Generic Name Dose Route Start Last Admin Trade Name Freq PRN Reason Stop Dose Admin Aspirin 325 mg 07/05/20 09:00 Aspirin 325 Mg Tab PO DAILY ANAYELI Heparin Sodium/Sodium Chloride 250 mls @ 9.036 mls/hr 07/04/20 12:45 07/04/20 13:02 25,000 unit/ Sodium Chloride IV 12 units/kg/hr .Q24H ANAYELI 9.036 mls/hr Administration Protocol 12 UNITS/KG/HR Nitroglycerin 0.4 mg 07/04/20 12:36 Nitroglycerin Sl Tabs 0.4 Mg Tab SUBLINGUAL Q5M PRN Chest Pain Pantoprazole Sodium 40 mg 07/04/20 12:45 07/04/20 13:03 Pantoprazole 40 Mg/10 Ml Vial IVP 40 mg DAILY ANAYELI Administration Intake and Output 07/04/20 07/04/20 07/04/20 06:59 14:59 22:59 Other: Weight 75.296 kg 75.296 kg Patient Weight 07/05/20 06:59 Weight 75.296 kg 07/04/20 11:14 07/04/20 11:14
--- NOTE | 2020-07-05 15:50 | ECHOF ---
Referral Reason:chest pain MEASUREMENTS -------- HEIGHT: 165.1 cm WEIGHT: 75.3 kg BP: 169/88 IVSd: 1.5 cm (0.6 - 1.1) LVIDd: 3.0 cm (3.9 - 5.3) LVPWd: 1.4 cm (0.6 - 1.1) EDV(Teich): 36 ml IVSs: 2.0 cm LVIDs: 1.6 cm LVPWs: 2.0 cm %IVS Thck: 33 % ESV(Teich): 7 ml EF(Teich): 81 % %FS: 48 % SV(Teich): 29 ml RVIDd: 3.3 cm (< 3.3) LALs A4C: 4.9 cm LAAs A4C: 19.3 cm LAESV A-L A4C: 64 ml LAESV MOD A4C: 55 ml LALs A2C: 5.4 cm LAAs A2C: 20.4 cm LAESV A-L A2C: 66 ml LAESV MOD A2C: 62 ml LAESV(A-L): 68 ml LAESV Index (A-L): 37.13 ml/m Ao Diam: 2.4 cm (2.0 - 3.7) LA Diam: 4.1 cm (2.7 - 3.8) AV Cusp: 2.0 cm (1.5 - 2.6) EPSS: 0.7 cm MV E [place]: 1.03 m/s MV DecT: 248 ms MV Dec [place]: 4.1 m/s MV A [place]: 1.50 m/s MV E/A Ratio: 0.69 MV PHT: 72 ms LVOT Vmax: 1.52 m/s LVOT maxP.18 mmHg AV Vmax: 1.68 m/s AV maxP.32 mmHg TR Vmax: 2.68 m/s TR maxP.77 mmHg RAP: 5.00 mmHg RVSP: 33.77 mmHg MV EF SLOPE: 66.28 mm/s (70 - 150) MV EXCURSION: 15.64 mm (> 18.000) FINDINGS -------- Sinus rhythm. This was a technically adequate study. The left ventricular size is normal. There is moderate concentric left ventricular hypertrophy. O verall left ventricular systolic function is normal with, an EF between 55 - 60 %. The right ventricle is mildly enlarged. LA is moderately dilated 34-39 ml/m2 The right atrial size is normal. Interatrial and interventricular septum intact. Trace amount of aortic regurgitation. There is no evidence of aortic stenosis. Heou-yk-[id number] mitral regurgitation is present. Mild tricuspid regurgitation present. There is borderline pulmonary artery hypertension. The [facility] t ventricular systolic pressure, as measured by Doppler, is 33.77mmHg. There is no pulmonic regurgitation present. The aortic root size is normal. IVC Not well visulized. There is no pericardial effusion. CONCLUSIONS -------- 1. The left ventricular size is normal. 2. There is moderate concentric left ventricular hypertrophy. 3. Overall left ventricular systolic function is normal with, an EF between 55 - 60 %. 4. The right ventricle is mildly enlarged. 5. LA is moderately dilated 34-39 ml/m2 6. Trace amount of aortic regurgitation. 7. Tgxt-ri-[id number] mitral regurgitation is present. 8. Mild tricuspid regurgitation present. 9. There is borderline pulmonary artery hypertension. BLEACH PACKER: Yadi Willard, GEMMA
--- NOTE | 2020-07-05 21:06 | P.PN ---
Progress Note - Text Progress Note Date: 07/05/20 Chief Complaint: Chest pain History of presenting complaint: This is a pretty pleasant 70-year-old patient, follows with Dr. Combs. Chronic stable medical conditions include GERD, hard of hearing with hearing aids, prostatitis, obstructive sleep apnea uses CPAP machine. Patient presents with 2 weeks of chest pressure grading across the back. Radiating. Especially comes on with activities including yard work. And better with rest. No other radiation. Denies any dizziness or light tenderness. Occasional perspiration occasional nausea. Patient admitted with unstable angina. No prior cardiac history. In the remote has had a negative stress test. Admitted with unstable angina. Today: IV heparin was discontinued. No further chest pain. Cardiology ordered Cozaar for blood pressure. Review of systems: Was done for constitutional, cardiovascular, GI, pulmonary. relevant finding as above Active Medications Aspirin (Aspirin 81 Mg) 81 mg PO DAILY [facility] Last Admin: 07/05/20 09:23 Dose: 81 mg Documented by: Losartan Potassium (Losartan 50 Mg Tab) 50 mg PO DAILY [facility] Last Admin: 07/05/20 09:22 Dose: 50 mg Documented by: Melatonin (Melatonin 3 Mg Tablet) 3 mg PO HS PRN PRN Reason: Insomnia Last Admin: 07/04/20 23:35 Dose: 3 mg Documented by: Nitroglycerin (Nitroglycerin Sl Tabs 0.4 Mg Tab) 0.4 mg SUBLINGUAL Q5M PRN PRN Reason: Chest Pain Pantoprazole Sodium (Pantoprazole 40 Mg Tablet) 40 mg PO -BRKT [facility] Past medical history to include: GERD, hard of hearing with hearing aids, osteoarthritis, obstructive sleep apnea with CPAP Social history: Does not smoke. Alcohol occasionally. . 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 Physical examination: VITAL SIGNS: 98.1, 62, 18, 160/75, 96% room air GENERAL: Sitting up, comfortable EYES: Pupils equal. Conjunctiva normal. NECK: JVD not raised; masses not palpable. HEART: First and second heart sounds are normal; no edema. LUNGS: Respiratory rate normal; clear to auscultation. ABDOMEN: Soft, nontender, liver spleen not palpable, no masses palpable. PSYCH: Alert and oriented x3; mood and affect normal. MUSCULAR skeletal: Evidence of OA INVESTIGATIONS, reviewed in the clinical context: LDL 99 WBC 4.2 hemoglobin 14.1 platelets 248 potassium 4.7 creatinine 0.78 Troponin I 3 negative Coronavirus [PCR]-not detected EKG tracing personally reviewed by me-normal sinus rhythm, left bundle-branch block pattern Chest x-ray film personally reviewed by me-lung haro clear Assessment and plan: -Unstable angina in a patient presented with cardiac sounding presentation. Risk factors include positive family history, postmenopausal, Troponins are negative. Patient will at least need a stress test. Started aspirin. IV heparin-discontinued -IV heparin monitoring-discontinued Follow PTT -GERD Use Pepcid when necessary -Primary osteoarthritis Use Tylenol when necessary -Obstructive sleep apnea Continue with CPAP -Essential hypertension Cozaar added Continue current medications. Stress test as per cardiology. Discussed with patient.
[2020-07-05] MEDS: MELATONIN 3 MG TABLET PO PRN (22:11)
[2020-07-06] MEDS ORDERED: PANTOPRAZOLE 40 MG TABLET PO SCH (07:30)
[2020-07-06 08:05] VITALS: BP 139/80; PULSE 75; TEMP 98.4
[2020-07-06] MEDS: LOSARTAN 50 MG TAB PO SCH (08:44)
[2020-07-06] MEDS: ASPIRIN 81 MG PO SCH (08:44)
--- NOTE | 2020-07-06 11:12 | P.HPCAR ---
History of Present Illness Patient is doing well from a cardiac standpoint but she continues to have GERD- like symptoms also this is better She has not had any cardiac abnormalities Even before his troponin was normal Blood pressure over is a lot better with 50 mg of losartan added yesterday. She is on a baby aspirin On examination Blood pressure 147/75, 122/63 and 139/80 mmHg Afebrile Heart rate 7 the 60s and 70s Breath sounds are clear no rhonchi no crackles Heart sounds S1-S2 are normal no murmurs or gallop or rub Abdomen soft nontender 70s warm no edema Impression and plan Patient presented with heartburn-like symptoms which is persistent Normal cardiac enzymes 4 Significantly elevated blood pressure readings Improvement in blood pressure with losartan 50 g by mouth daily Continue cardiovascular risk was calculated at 17% Rosuvastatin 20 mg by mouth daily added Low salt diet discussed Risk of diastolic heart failure with uncontrolled blood pressure discussed Moderate concentric LVH ejection fraction 50-60% Mildly enlarged right ventricle Moderately dilated left atrium with 2+ lateral regurgitation and mild tricuspid regurgitation I had a detailed discussion with the patient regarding her long-term management I will see her again in about 2-3 weeks and reassess her blood pressure control. Once her blood pressure is well controlled then further workup will be performed Physical Exam Vitals: Vital Signs Temp Pulse Resp BP Pulse Ox 07/06/20 07:00 98.4 F 75 17 139/80 99 07/06/20 01:40 16 07/06/20 01:05 98.0 F 69 16 122/63 97 07/05/20 20:00 16 07/05/20 19:14 97.3 F L 75 16 147/75 99 07/05/20 14:26 98.3 F 78 18 143/62 97 07/05/20 14:00 18 Intake and Output 07/05/20 07/06/20 07/06/20 22:59 06:59 14:59 Other: # Voids 1 2 Past Medical History Past Medical History: GERD/Reflux, Hearing Disorder / Deafness, Osteoarthritis (OA), Sleep Apnea/CPAP/BIPAP Additional Past Medical History / Comment(s): arthritis History of Any Multi-Drug Resistant Organisms: None Reported Past Surgical History: Tonsillectomy Additional Past Surgical History / Comment(s): bilateral cataractswith implants , bilat eyelid surgery, left breast core biopsy Past Anesthesia/Blood Transfusion Reactions: No Reported Reaction Additional Past Anesthesia/Blood Transfusion Reaction / Comment(s): Never had blood transfusion Past Psychological History: No Psychological Hx Reported Additional Psychological History / Comment(s): . Smoking Status: Never smoker Past Alcohol Use History: Occasional Additional Past Alcohol Use History / Comment(s): smoked for a couple yrs as teen, 1 pack/week Past Drug Use History: None Reported - Past Family History Mother Family Medical History: Coronary Artery Disease (CAD) Additional Family Medical History / Comment(s): CABG Physical Examination Vital Signs Temp Pulse Resp BP Pulse Ox 07/06/20 07:00 98.4 F 75 17 139/80 99 07/06/20 01:40 16 07/06/20 01:05 98.0 F 69 16 122/63 97 07/05/20 20:00 16 07/05/20 19:14 97.3 F L 75 16 147/75 99 07/05/20 14:26 98.3 F 78 18 143/62 97 07/05/20 14:00 18 Intake and Output 07/05/20 07/06/20 07/06/20 22:59 06:59 14:59 Other: # Voids 1 2 Results 07/04/20 11:14 07/04/20 11:14 Lipids 07/05/20 Range/Units 05:03 Triglycerides 87.0 (0.0-149.0) mg/dL Cholesterol 191 (0-200) mg/dL HDL Cholesterol 74.0 H (40.0-60.0) mg/dL Cholesterol/HDL Ratio 2.58 Current Medications Generic Name Dose Route Start Last Admin Trade Name Freq PRN Reason Stop Dose Admin Aspirin 81 mg 07/05/20 09:15 07/06/20 08:44 Aspirin 81 Mg PO 81 mg DAILY ANAYELI Administration Losartan Potassium 50 mg 07/05/20 09:15 07/06/20 08:44 Losartan 50 Mg Tab PO 50 mg DAILY ANAYELI Administration Melatonin 3 mg 07/04/20 23:18 07/05/20 22:11 Melatonin 3 Mg Tablet PO 3 mg HS PRN Administration Insomnia Nitroglycerin 0.4 mg 07/04/20 12:36 Nitroglycerin Sl Tabs 0.4 Mg Tab SUBLINGUAL Q5M PRN Chest Pain Pantoprazole Sodium 40 mg 07/06/20 07:30 07/06/20 08:44 Pantoprazole 40 Mg Tablet PO 40 mg [id number] Administration Intake and Output 07/05/20 07/06/20 07/06/20 22:59 06:59 14:59 Other: # Voids 1 2 07/04/20 11:14 07/04/20 11:14
[2020-07-06 11:32] VITALS: RESP 16
--- NOTE | 2020-07-06 17:18 | P.DS ---
Providers Date of admission: 07/04/20 12:45 Expected date of discharge: 07/06/20 Attending physician: Michel Iniguez Consults: 07/04/20 12:36 Consult Physician Urgent Consulting Provider: Gus Bland Consult Reason/Comments: chest pain Do you want consulting provider notified?: Yes Primary care physician: [facility] Course: Chief Complaint: Chest pain History of presenting complaint: This is a pretty pleasant 70-year-old patient, follows with Dr. Combs. Chronic stable medical conditions include GERD, hard of hearing with hearing aids, prostatitis, obstructive sleep apnea uses CPAP machine. Patient presents with 2 weeks of chest pressure grading across the back. Radiating. Especially comes on with activities including yard work. And better with rest. No other radiation. Denies any dizziness or light tenderness. Occasional perspiration occasional nausea. Patient admitted with unstable angina. No prior cardiac history. In the remote has had a negative stress test. Admitted with unstable angina. Blood pressure also was running high. Patient was seen with Dr. Edin Bland from cardiology. Today: No cardiac symptoms further. Cleared by currently to go home. Follow up cardiology as an outpatient. Care was discussed with the patient. Questions answered. Consultation: Dr. Gus Bland from cardiology Past medical history to include: GERD, hard of hearing with hearing aids, osteoarthritis, obstructive sleep apnea with CPAP Social history: Does not smoke. Alcohol occasionally. . 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 Physical examination: VITAL SIGNS: 98.4, 75, 17, 139/80, 99% room air GENERAL: Sitting up, comfortable EYES: Pupils equal. Conjunctiva normal. NECK: JVD not raised; masses not palpable. HEART: First and second heart sounds are normal; no edema. LUNGS: Respiratory rate normal; clear to auscultation. ABDOMEN: Soft, nontender, liver spleen not palpable, no masses palpable. PSYCH: Alert and oriented x3; mood and affect normal. MUSCULAR skeletal: Evidence of OA INVESTIGATIONS, reviewed in the clinical context: LDL 99 2-D echocardiogram: Moderate concentric LVH. EF 55-60%. Kwoz-ad-hovnfnnd MR. WBC 4.2 hemoglobin 14.1 platelets 248 potassium 4.7 creatinine 0.78 Troponin I 3 negative Coronavirus [PCR]-not detected EKG tracing personally reviewed by me-normal sinus rhythm, left bundle-branch block pattern Chest x-ray film personally reviewed by me-lung haro clear Assessment and plan: -Unstable angina in a patient presented with cardiac sounding presentation. Ri sk factors include positive family history, postmenopausal, Troponins are negative. Patient will at least need a stress test. Started aspirin. IV heparin-discontinued. Seen by cardiology. Cleared for discharge. Outpatient follow-up. -IV heparin monitoring-discontinued Follow PTT -Hypertensive heart disease -GERD Use Pepcid when necessary -Primary osteoarthritis Use Tylenol when necessary -Obstructive sleep apnea Continue with CPAP -Essential hypertension Cozaar added Disposition: Home Patient Condition at Discharge: Fair Plan - Discharge Summary Discharge Rx Participant: No New Discharge Prescriptions: New Aspirin 81 mg PO DAILY chew Famotidine [Pepcid] 20 mg PO BID #60 tablet Rosuvastatin [Crestor] 20 mg PO DAILY #30 tablet Losartan [Cozaar] 50 mg PO DAILY #30 tab Nitroglycerin Sl Tabs [Nitrostat] 0.4 mg SUBLINGUAL Q5M PRN #30 tab PRN Reason: Chest Pain Continue [place]-3 Fatty Acids/Fish Oil [Fish Oil 1,000 mg Capsule] 1 cap PO DAILY Cholecalciferol [Vitamin D3 (25 Mcg = 1000 Iu)] 1,000 unit PO BID@0800,1200 Multivitamins, Thera [Multivitamin (formulary)] 1 tab PO DAILY Ascorbic Acid [Vitamin C] 1,000 mg PO DAILY Discontinued Zinc 50 mg PO DAILY No Action Cinnamon Bark [Cinnamon] 500 mg PO DAILY Discharge Medication List Cholecalciferol [Vitamin D3 (25 Mcg = 1000 Iu)] 1,000 unit PO BID@0800,1200 07/02/16 [History] Cinnamon Bark [Cinnamon] 500 mg PO DAILY 07/02/16 [History] [place]-3 Fatty Acids/Fish Oil [Fish Oil 1,000 mg Capsule] 1 cap PO DAILY 07/02/16 [History] Multivitamins, Thera [Multivitamin (formulary)] 1 tab PO DAILY 05/10/18 [History] Ascorbic Acid [Vitamin C] 1,000 mg PO DAILY 03/30/20 [History] Aspirin 81 mg PO DAILY chew 07/06/20 [Rx] Famotidine [Pepcid] 20 mg PO BID #60 tablet 07/06/20 [Rx] Losartan [Cozaar] 50 mg PO DAILY #30 tab 07/06/20 [Rx] Nitroglycerin Sl Tabs [Nitrostat] 0.4 mg SUBLINGUAL Q5M PRN #30 tab 07/06/20 [Rx] Rosuvastatin [Crestor] 20 mg PO DAILY #30 tablet 07/06/20 [Rx] Follow up Appointment(s)/Referral(s): Gus Bland MD [STAFF PHYSICIAN] - 08/01/20 10:45 am ([facility]) Jesse Combs DO [Primary Care Provider] - 1-2 days (office will call you with date and time for appointment) Patient Instructions/Handouts: Chronic Hypertension (DC) Discharge Disposition: HOME SELF-CARE
== END 2020-07-06 13:35 | disposition home or self-care (01) ==
LOC: EC 10:28 → 6NMEDSUR 12:45
PROVIDERS: ADMIT Hospitalist; ATTEND Hospitalist
DX: I20.0 Unstable angina (principal); I11.9 Hypertensive heart disease without heart failure; I44.7 Left bundle-branch block, unspecified; I08.1 Rheumatic disorders of both mitral and tricuspid valves; H91.90 Unspecified hearing loss, unspecified ear; K21.9 Gastro-esophageal reflux disease without esophagitis; G47.33 Obstructive sleep apnea (adult) (pediatric); Z97.4 Presence of external hearing-aid; M19.91 Primary osteoarthritis, unspecified site; Z20.822 Contact with and (suspected) exposure to COVID-19; Z78.0 Asymptomatic menopausal state; Z87.891 Personal history of nicotine dependence; Z88.1 Allergy status to other antibiotic agents; Z88.2 Allergy status to sulfonamides; Z98.42 Cataract extraction status, left eye; Z98.41 Cataract extraction status, right eye; Z96.1 Presence of intraocular lens; Z98.890 Other specified postprocedural states; Z82.49 Family history of ischemic heart disease and other diseases of the circulatory system
CPT/HCPCS: 84484 ×2; 96376; 96366 ×3; 93005 ×2; 96365; 96375; 99285; 36415; 83880; 80061; 80053; 83690; 83735; 85025; 85610; 85730 ×2; 87635; 71046; G0378 ×3; C8929; J1644 ×2; C9113 ×2; Q9950; 93306

== ENCOUNTER → 2020-08-02 | Outpatient (CLI) | payer MEDICARE ==
[2020-08-02 14:52] VITALS: BP 165/79; PULSE 72; RESP 18; TEMP 98.4
--- NOTE | 2020-08-02 15:00 | P.PN ---
Subjective Progress Note Date: 08/02/20 Principal diagnosis: stage IB left breast cancer status post left breat cancer Stgae 1 [id number]; left breast invasive ductal cancer; stage IB Ngoc is a 70-year-old white female who had a routine screening mammogram 03/14/2019. This revealed a new 1 cm lobulated high density mass in the central upper inner quadrant in the left breast posteriorly. Additional mammogram and ultrasound were performed and no lesions of concern were noted in the right breast. Additional mammogram and ultrasound revealed persistence of the mass in the left breast and this corresponded to a 13 x 8 mm solid hypoechoic taller and wide lesion at 10:00 in the left breast on ultrasound. A 6 and 5 mm lymph node at the axillary tail were noted. Ultrasound core biopsy of the left breast was recommended. Ultrasound-guided core biopsy was performed on . This revealed inva sive poorly differentiated grade 3 ductal carcinoma. This was ER negative. Negative HER-2/itz negative. The patient does feel anything of concern in her breast. She has no history of any recent trauma or infection in her breast. She has not had any breast biopsies in the past. She underwent a left breast lumpectomy and sentinel biopsy and 6919. Pathology showed margins were negative for cancer. Lymph nodes were negative for cancer. Greatest dimension of the tumor was 9 mm. She has done well postoperatively and was seen by medical and radiation oncology. She opted to undergo radiation therapy but no hormonal or chemotherapy. She completed radiation therapy on September 16. Patient had a bilateral mammogram on 2520 this was felt to be benign BIRADS 2. The patient is not complaining of any loss masses or nodules in either breast. She is not complaining of any nipple discharge or skin changes. She does have radiation changes of the skin on the left breast that she is not worried about this. 08-02-20 Ngoc is not complaining of any lumps masses or nodules in either breast. She is not complaining of any nipple discharge or skin changes for which she is concerned. She completed with surgery and radiation. She did not have any chemotherapy or hormonal therapy. Caffeine: Approximately three quarters cup of coffee/ day The patient does not smoke and is not exposed to secondhand smoke The patient eats chocolate dark chocolate/small piece daily she does not take any hormones or hormone therapy Hormonal History: menarche:10 , breast fed: none, age at first : 16 menopause: 48 BCP: 3 years hormones: none Surgical history: 1. Bilateral cataract 2. Eyelid 2. Tonsils 3. left breast lumpectomy and SNB Medical history:after COVID vaccine developed chest pressure, and was admitted for evaluation which was negative; patient ? 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 Social history: Smoke: Negative Alcohol: Occasional Drugs: Negative - Constitutional Constitutional: Reports sweats, Denies chills, Denies fever - EENT Eyes: denies blurred vision, denies pain Ears: bilateral: decreased hearing, tinnitus Ears, nose, mouth and throat: Denies headache, Denies sore throat - Breasts Breasts: bilateral: as per HPI - Cardiovascular Cardiovascular: Denies chest pain, Denies shortness of breath - Respiratory Respiratory: Denies cough - Gastrointestinal Gastrointestinal: Denies abdominal pain, Denies diarrhea, Denies nausea, Denies vomiting - Genitourinary (Female) Genitourinary: Denies dysuria, Denies hematuria - Menstruation Menstruation: Reports postmenopausal - Musculoskeletal Comment: arthritis - Integumentary Integumentary: Denies pruritus, Denies rash - Neurological Neurological: Denies numbness, Denies weakness - Psychiatric Psychiatric: Denies anxiety, Denies depression - Endocrine Endocrine: Denies fatigue, Denies weight change - Hematologic/Lymphatic Comment: none - Allergic/Immunologic Allergic/Immunologic: Reports as per HPI Objective - Constitutional General appearance: Present: average body habitus - EENT Eyes: Present: EOMI ENT: Present: hearing grossly normal - Neck Neck: Present: normal ROM - Respiratory Respiratory: bilateral: CTA - Cardiovascular Rhythm: regular Heart sounds: normal: S1, S2 - Integumentary Integumentary: Present: normal turgor - Musculoskeletal Musculoskeletal: Present: gait normal - Psychiatric Psychiatric: Present: A&O x's 3, appropriate affect, intact judgment & insight - Additional findings Additional findings: Breast Exam: BRA: 36C inspection: Right breast grade 3 ptosis, left breast grade 2 ptosis, prominent nipple areolar complex Palpation: Right breast: Multi-positional exam fibrocystic changes, no dominant masses or nodules of concern Right axilla: No adenopathy of concern Left breast: Incisions clean and dry postop changes postradiation changes, no dominant masses or nodules of concern Left axilla: No adenopathy of concern Assessment and Plan Assessment: Impression: 1. stage 1B left breast cancer no evidence of recurrence 2. 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 asymmetry of the breast related to lumpectomy of the left breast Plan: 1. Repeat bilateral mammogram in March 2021 2. Follow-up examination here in 4 months 3. Follow up sooner if any questions or concerns
== END ==
LOC: WWCWWP 14:29
PROVIDERS: ATTEND Surgery
DX: Z08 Encounter for follow-up examination after completed treatment for malignant neoplasm (principal); N64.89 Other specified disorders of breast; Z98.890 Other specified postprocedural states; Z85.3 Personal history of malignant neoplasm of breast; Z88.1 Allergy status to other antibiotic agents; Z88.2 Allergy status to sulfonamides

== ENCOUNTER → 2021-03-18 | Outpatient (CLI) | payer MEDICARE ==
--- NOTE | 2021-03-18 11:21 | MM ---
Reason for exam: additional evaluation requested from prior study. Last mammogram was performed 1 year ago. History: Patient is postmenopausal and has history of breast cancer at age 69. Malignant MG pre op needle loc LT of the left breast, July 19, 2019. Lumpectomy of the left breast, July 19, 2019. Malignant US biopsy breast VAD LT of the left breast, July 06, 2019. Took estrogen for 3 years beginning at age 58. Physical Findings: Nurse did not find any significant physical abnormalities on exam. MG 3D Diag Mammo W/Cad DAVID Bilateral CC and MLO view(s) were taken. Prior study comparison: March 16, 2020, bilateral MG 3d diag mammo w/cad DAVID. July 06, 2019, left breast MG diagnostic mammo LT wo CAD. The breast tissue is heterogeneously dense. This may lower the sensitivity of mammography. There are benign calcifications. Stable post operative changes left breast. No significant new findings when compared with previous films. These results were verbally communicated with the patient and result sheet given to the patient on 03/18/21. ASSESSMENT: Benign, BI-RAD 2 RECOMMENDATION: Follow-up diagnostic mammogram of both breasts in 1 year.
== END | disposition home or self-care (01) ==
LOC: RADMAMWWP 09:59
PROVIDERS: ATTEND Surgery
DX: R92.8 Other abnormal and inconclusive findings on diagnostic imaging of breast (principal); Z78.0 Asymptomatic menopausal state; Z85.3 Personal history of malignant neoplasm of breast
CPT/HCPCS: 77066; G0279; 77062

== ENCOUNTER → 2021-03-21 | Outpatient (CLI) | payer MEDICARE ==
[2021-03-21 15:02] VITALS: BP 140/86; PULSE 65; RESP 18; TEMP 98.1
--- NOTE | 2021-03-21 15:31 | P.PN ---
Subjective Progress Note Date: 03/21/21 Principal diagnosis: [id number]; left breast invasive ductal cancer; stage IB; left breast stage IB left breast cancer [id number]; left breast invasive ductal cancer; stage IB Ngoc is a 70-year-old white female who had a routine screening mammogram 03/14/2019. This revealed a new 1 cm lobulated high density mass in the central upper inner quadrant in the left breast posteriorly. Additional mammogram and ultrasound were performed and no lesions of concern were noted in the right breast. Additional mammogram and ultrasound revealed persistence of the mass in the left breast and this corresponded to a 13 x 8 mm solid hypoechoic taller and wide lesion at 10:00 in the left breast on ultrasound. A 6 and 5 mm lymph node at the axillary tail were noted. Ultrasound core biopsy of the left breast was recommended. Ultrasound-guided core biopsy was performed on . This revealed invasive poorly differentiated grade 3 ductal carcinoma. This was ER negative. Negative HER-2/itz negative. The patient does feel anything of concern in her breast. She has no history of any recent trauma or infection in her breast. She has not had any breast biopsies in the past. She underwent a left breast lumpectomy and sentinel biopsy and 6919. Pathology showed margins were negative for cancer. Lymph nodes were negative for cancer. Greatest dimension of the tumor was 9 mm. She has done well postoperatively and was seen by medical and radiation oncology. She opted to undergo radiation therapy but no hormonal or chemotherapy. She completed radiation therapy on September 16. Patient had a bilateral mammogram on 2520 this was felt to be benign BIRADS 2. The patient is not complaining of any loss masses or nodules in either breast. She is not complaining of any nipple discharge or skin changes. She does have radiation changes of the skin on the left breast that she is not worried about this. 08-02-20 Ngoc is not complaining of any lumps masses or nodules in either breast. She is not complaining of any nipple discharge or skin changes for which she is concerned. She was treated with surgery and radiation. She did not have any chemotherapy or hormonal therapy. 03-21-21 Ngoc is doing well. She does not complain of any new lumps masses or nodules of concern in either breast. She is not complaining of any recent, or infection in her breast. 03-18-21 bilateral mammogram BIRAD 2 Caffeine: Approximately three quarters cup of coffee/ day The patient does not smoke and is not exposed to secondhand smoke The patient eats chocolate dark chocolate/small piece daily she does not take any hormones or hormone therapy Hormonal History: menarche:10 , breast fed: none, age at first : 16 menopause: 48 BCP: 3 years hormones: none Surgical history: 1. Bilateral cataract 2. Eyelid 2. Tonsils 3. 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 Social history: Smoke: Negative Alcohol: Occasional Drugs: Negative - Constitutional Constitutional: Reports sweats, Denies chills, Denies fever - EENT Eyes: denies blurred vision, denies pain Ears: bilateral: decreased hearing, tinnitus Ears, nose, mouth and throat: Denies headache, Denies sore throat - Breasts Breasts: bilateral: as per HPI - Cardiovascular Cardiovascular: Denies chest pain, Denies shortness of breath - Respiratory Respiratory: Denies cough - Gastrointestinal Gastrointestinal: Denies abdominal pain, Denies diarrhea, Denies nausea, Denies vomiting - Genitourinary (Female) Genitourinary: Denies dysuria, Denies hematuria - Menstruation Menstruation: Reports postmenopausal - Musculoskeletal Comment: arthritis - Integumentary Integumentary: Denies pruritus, Denies rash - Neurological Neurological: Denies numbness, Denies weakness - Psychiatric Psychiatric: Denies anxiety, Denies depression - Endocrine Endocrine: Denies fatigue, Denies weight change - Hematologic/Lymphatic Comment: none - Allergic/Immunologic Allergic/Immunologic: Reports as per HPI Objective - Vital Signs Vital signs: Vital Signs Temp 98.1 F 03/21/21 14:51 Pulse 65 03/21/21 14:51 Resp 18 03/21/21 14:51 BP 140/86 03/21/21 14:51 Pulse Ox 97 03/21/21 14:51 Intake & Output 03/20/21 03/21/21 03/21/21 18:59 06:59 18:59 Weight 72.121 kg - Exam BMI 27.3 - Constitutional General appearance: Present: cooperative - EENT Eyes: Present: EOMI ENT: Present: hearing grossly normal - Neck Neck: Present: normal ROM - Respiratory Respiratory: bilateral: CTA - Cardiovascular Rhythm: regular Heart sounds: normal: S1, S2 - Gastrointestinal General gastrointestinal: Present: soft - Integumentary Integumentary: Present: normal turgor - Musculoskeletal Musculoskeletal: Present: gait normal - Psychiatric Psychiatric: Present: A&O x's 3, appropriate affect, intact judgment & insight - Additional findings Additional findings: Breast Exam: BRA: 34C inspection: right breast grade 3 ptosis, left breast grade 2 ptosis palpation: right breast: Multi-positional exam fibrocystic changes no dominant masses or nodules of concern Right axilla: No adenopathy of concern Left breast: Post procedure changes no dominant masses or nodules of concern Left axilla: No adenopathy of concern Assessment and Plan Assessment: Impression: Patient status post left breast lumpectomy via reduction mammoplasty incision no evidence of recurrent disease stage IB; patient had radiation therapy should not have any hormone therapy and no chemo therapy Plan: Bilateral mammogram in 1 year with a physician exam at that time 6 month follow-up Continue to follow with radiation oncology CC: Dr. Combs
== END ==
LOC: WWCWWP 14:28
PROVIDERS: ATTEND Surgery
DX: Z08 Encounter for follow-up examination after completed treatment for malignant neoplasm (principal); Z85.3 Personal history of malignant neoplasm of breast; Z98.890 Other specified postprocedural states; Z88.1 Allergy status to other antibiotic agents; Z88.2 Allergy status to sulfonamides

== ENCOUNTER → 2021-11-01 | Outpatient (CLI) | payer MEDICARE ==
[2021-11-01 14:31] VITALS: PULSE 67; RESP 12; TEMP 98.2
--- NOTE | 2021-11-01 15:26 | P.PN ---
Subjective Progress Note Date: 11/01/21 Principal diagnosis: left breast stage IB invasive ductal cancer [id number]; left breast invasive ductal cancer; stage IB; left breast stage IB left breast cancer [id number]; left breast invasive ductal cancer; stage IB 11-01-21 She underwent a left breast lumpectomy and sentinel biopsy on 6919. Pathology showed margins were negative for cancer. Lymph nodes were negative for cancer. Greatest dimension of the tumor was 9 mm. She has done well posto peratively and was seen by medical and radiation oncology. She opted to undergo radiation therapy but no hormonal or chemotherapy. She completed radiation therapy on September 16. Her most recent bilateral mammogram was in 2721 which was benign BIRADS 2. At this time the patient's neck complaining of the lumps masses or nodules of concern in either breast. Caffeine: Approximately three quarters cup of coffee/ day The patient does not smoke and is not exposed to secondhand smoke The patient eats chocolate dark chocolate/small piece daily she does not take any hormones or hormone therapy Hormonal History: menarche:10 , breast fed: none, age at first : 16 menopause: 48 BCP: 3 years hormones: none Surgical history: 1. Bilateral cataract 2. Eyelid 2. Tonsils 3. 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 Social history: Smoke: Negative Alcohol: Occasional Drugs: Negative - Constitutional Constitutional: Reports sweats, Denies chills, Denies fever - EENT Eyes: denies blurred vision, denies pain Ears: bilateral: decreased hearing, tinnitus Ears, nose, mouth and throat: Denies headache, Denies sore throat - Breasts Breasts: bilateral: as per HPI - Cardiovascular Cardiovascular: Denies chest pain, Denies shortness of breath - Respiratory Respiratory: Denies cough - Gastrointestinal Gastrointestinal: Denies abdominal pain, Denies diarrhea, Denies nausea, Denies vomiting - Genitourinary (Female) Genitourinary: Denies dysuria, Denies hematuria - Menstruation Menstruation: Reports postmenopausal - Musculoskeletal Comment: arthritis - Integumentary Integumentary: Denies pruritus, Denies rash - Neurological Neurological: Denies numbness, Denies weakness - Psychiatric Psychiatric: Denies anxiety, Denies depression - Endocrine Endocrine: Denies fatigue, Denies weight change - Hematologic/Lymphatic Comment: none - Allergic/Immunologic Allergic/Immunologic: Reports as per HPI Objective - Vital Signs Vital signs: Vital Signs Temp 98.2 F 11/01/21 14:26 Pulse 67 11/01/21 14:26 Resp 12 11/01/21 14:26 BP Pulse Ox 96 11/01/21 14:26 FiO2 Intake & Output 10/31/21 11/01/21 11/01/21 18:59 06:59 18:59 Weight 73.482 kg - Constitutional General appearance: Present: cooperative - EENT Eyes: Present: EOMI ENT: Present: hearing grossly normal - Neck Neck: Present: normal ROM - Respiratory Respiratory: bilateral: CTA - Cardiovascular Rhythm: regular Heart sounds: normal: S1, S2 - Integumentary Integumentary: Present: normal turgor - Musculoskeletal Musculoskeletal: Present: gait normal - Psychiatric Psychiatric: Present: A&O x's 3, appropriate affect, intact judgment & insight - Additional findings Additional findings: Breast Exam: BRA: 36C Inspection: Postprocedure changes left breast, reduction mammoplasty Palpation: Right breast: Post positional exam no dominant masses or nodules of concern Right axilla: No adenopathy of concern Left breast: Multi-positional exam fibrocystic changes, post surgical changes, no dominant masses or nodules of concern Left axilla: No adenopathy of concern Assessment and Plan Assessment: Impression: Left breast stage I be invasive ductal carcinoma status post lumpectomy and sentinel node biopsy patient opted for no chemo hormonal therapy but did complete radiation therapy No evidence of recurrent cancer at this time Patient is due for a bilateral mammogram in March 2022 Plan: Bilateral mammogram [id number] with physician exam at that time CC: Lauryn
== END ==
LOC: WWCWWP 14:08
PROVIDERS: ATTEND Surgery
DX: Z08 Encounter for follow-up examination after completed treatment for malignant neoplasm (principal); Z85.3 Personal history of malignant neoplasm of breast; Z98.890 Other specified postprocedural states; Z88.1 Allergy status to other antibiotic agents; Z88.2 Allergy status to sulfonamides

== ENCOUNTER 2022-03-04 23:25 | Emergency (ER) | payer MEDICARE ==
[2022-03-04 23:32] VITALS: TEMP 98
--- NOTE | 2022-03-04 23:53 | ED ---
General Adult HPI - General Chief complaint: Recheck/Abnormal Lab/Rx Stated complaint: High BP Time Seen by Provider: 03/04/22 23:34 Source: patient Mode of arrival: ambulatory - History of Present Illness Initial comments: This 72-year-old female with a past medical history including hypertension and chronic chest pain presents emergency department for high blood pressure. The patient stated that she was at her primary care physician office yesterday when she was found to have high blood pressure. She was told to continue to monitor her blood pressure at home but did not receive any further instructions. The patient stated that she attempted to call her primary care physician office earlier today because she had continued elevated blood pressures however she did not hear back from them and because of the elevated numbers, she came to the emergency department for further evaluation. The patient denied any current chest pain, shortness of breath as well as any lightheadedness or dizziness. The patient was resting in bed comfortably and was pleasant. - Related Data Home Medications Medication Instructions Recorded Confirmed Cholecalciferol [Vitamin D3 (25 1,000 unit PO BID@0800,1200 07/02/16 11/01/21 Mcg = 1000 Iu)] Marlin-3 Fatty Acids/Fish Oil [Fish 1 cap PO DAILY 07/02/16 11/01/21 Oil 1,000 mg Capsule] Multivitamins, Thera [Multivitamin 1 tab PO DAILY 05/10/18 11/01/21 (formulary)] Ascorbic Acid [Vitamin C] 1,000 mg PO DAILY 03/30/20 11/01/21 Pantoprazole [Protonix] 40 mg PO DAILY 03/21/21 11/01/21 Previous Rx's Medication Instructions Recorded Losartan [Cozaar] 50 mg PO DAILY #30 tab 07/06/20 Nitroglycerin Sl Tabs [Nitrostat] 0.4 mg SUBLINGUAL Q5M PRN #30 tab 07/06/20 Rosuvastatin [Crestor] 20 mg PO DAILY #30 tablet 07/06/20 Allergies Allergy/AdvReac Type Severity Reaction Status Date / Time cephalexin [From Keflex] Allergy Rash/Hives Verified 03/04/22 23:32 sulfamethoxazole Allergy Rash/Hives Verified 03/04/22 23:32 [From Bactrim] trimethoprim [From Bactrim] Allergy Rash/Hives Verified 03/04/22 23:32 Review of Systems ROS Statement: Those systems with pertinent positive or pertinent negative responses have been documented in the HPI. ROS Other: All systems not noted in ROS Statement are negative. Past Medical History Past Medical History: GERD/Reflux, Hearing Disorder / Deafness, Osteoarthritis (OA), Sleep Apnea/CPAP/BIPAP Additional Past Medical History / Comment(s): arthritis History of Any Multi-Drug Resistant Organisms: None Reported Past Surgical History: Tonsillectomy Additional Past Surgical History / Comment(s): bilateral cataractswith implants , bilat eyelid surgery, left breast core biopsy Past Anesthesia/Blood Transfusion Reactions: No Reported Reaction Additional Past Anesthesia/Blood Transfusion Reaction / Comment(s): Never had blood transfusion Past Psychological History: No Psychological Hx Reported Smoking Status: Never smoker Past Alcohol Use History: Occasional Past Drug Use History: None Reported - Past Family History Mother Family Medical History: Coronary Artery Disease (CAD) Additional Family Medical History / Comment(s): CABG General Exam Limitations: no limitations General appearance: alert, in no apparent distress Head exam: Present: atraumatic, normocephalic, normal inspection Eye exam: Present: normal appearance, PERRL Pupils: Present: normal accommodation ENT exam: Present: normal exam, normal oropharynx, mucous membranes moist Neck exam: Present: normal inspection, full ROM Respiratory exam: Present: normal lung sounds bilaterally Cardiovascular Exam: Present: regular rate, normal rhythm, normal heart sounds GI/Abdominal exam: Present: soft, normal bowel sounds Extremities exam: Present: normal inspection, full ROM Back exam: Present: normal inspection, full ROM Neurological exam: Present: alert, oriented X3, CN II-XII intact Psychiatric exam: Present: normal affect, normal mood Skin exam: Present: warm, dry Course Vital Signs 03/04/22 03/04/22 03/04/22 23:29 23:36 23:40 Temperature 98 F Pulse Rate 70 64 65 Respiratory 19 17 17 Rate Blood Pressure 152/110 215/105 222/111 O2 Sat by Pulse 99 99 100 Oximetry 03/04/22 03/05/22 03/05/22 23:50 00:00 00:40 Temperature Pulse Rate 62 62 86 Respiratory 16 17 12 Rate Blood Pressure 202/91 199/93 180/79 O2 Sat by Pulse 96 98 98 Oximetry 03/05/22 03/05/22 00:59 01:07 Temperature Pulse Rate 78 84 Respiratory 12 12 Rate Blood Pressure 167/65 131/59 O2 Sat by Pulse 98 99 Oximetry EKG Findings - EKG Comments: EKG Findings:: An EKG was obtained and was interpreted by myself showing a rate of 56, [place] interval of 209, QRS duration of 152 and QTC of 471. This EKG showed a sinus bradycardia with a left bundle branch block however there was no ST segment elevation or depression noted. Medical Decision Making - Medical Decision Making Was pt. sent in by a medical professional or institution (, LAUREN, PRODUCT DEVELOPMENT MANAGER, urgent care, hospital, or senior care...) When possible be specific @ -No Did you speak to anyone other than the patient for history (EMS, parent, family, police, friend...)? What history was obtained from this source @ -No Did you review nursing and triage notes (agree or disagree)? Why? @ -I reviewed and agree with nursing and triage notes Were old charts reviewed (outside hosp., previous admission, EMS record, old EKG, old radiological studies, urgent care reports/EKG's, senior care records)? Report findings @ -No old charts were reviewed Differential Diagnosis (chest pain, altered mental status, abdominal pain women, abdominal pain men, vaginal bleeding, weakness, fever, dyspnea, syncope, headache, dizziness, GI bleed, back pain, seizure, CVA, palpatations, mental health)? @ -Hypertensive urgency, hypertensive emergency EKG interpreted by me (3pts min.). @ -As above X-rays interpreted by me (1pt min.). @ -Chest x-ray was obtained and was interpreted by myself showing no acute process. CT interpreted by me (1pt min.). @ -None done U/S interpreted by me (1pt. min.). @ -None done What testing was considered but not performed or refused? (CT, X-rays, U/S, labs)? Why? @ -None What meds were considered but not given or refused? Why? @ -None Did you discuss the management of the patient with other professionals (professionals i.e. LAUREN Medley, PRODUCT DEVELOPMENT MANAGER, lab, RT, psych nurse, social work lecturer, sample preparation supervisor, teacher, fisheries technical officer, casey saw operator)? Give summary @ -No Was smoking cessation discussed for >3mins.? @ -No Was critical care preformed (if so, how long)? @ -No Were there social determinants of health that impacted care today? How? (Homelessness, low income, unemployed, alcoholism, drug addiction, transportation, low edu. Level, literacy, decrease access to med. care, long term, rehab)? @ -No Was there de-escalation of care discussed even if they declined (Discuss DNR or withdrawal of care, Hospice)? DNR status @ -No What co-morbidities impacted this encounter? (DM, HTN, Smoking, COPD, CAD, Cancer, CVA, ARF, Chemo, Hep., AIDS, mental health diagnosis, sleep apnea, morbid obesity)? @ -Hypertension, hyperlipidemia Was patient admitted / discharged? Hospital course, mention meds given and route, prescriptions, significant lab abnormalities, going to OR and other pertinent info. @ -The patient was seen and evaluated emergency department. Physical exam, the patient was resting in bed without any acute distress. The patient did have elevated blood pressure on arrival and had continued multiple readings of elevated blood pressure therefore workup was initiated but was all within normal limits. The patient likely had a hypertensive urgency. The patient was given a single dose of hydralazine him a 10 mg and on reevaluation had a significant decrease in her heart rate. The patient remained asymptomatic and was stable for discharge. The patient was advised to follow-up with her primary care phys ician for further workup and evaluation and to report to the emergency department if she any worsening shortness of breath or difficulty in breathing. The patient was agreeable to this and all her questions were answered. The patient was discharged home in stable condition. Undiagnosed new problem with uncertain prognosis? @ -No Drug Therapy requiring intensive monitoring for toxicity (Heparin, Nitro, Insulin, Cardizem)? @ -No Were any procedures done? @ -No Diagnosis/symptom? @ -Hypertensive urgency Acute, or Chronic, or Acute on Chronic? @ -Acute on chronic Uncomplicated (without systemic symptoms) or Complicated (systemic symptoms)? @ -Uncomplicated Side effects of treatment? @ -No Exacerbation, Progression, or Severe Exacerbation? @ -No Poses a threat to life or bodily function? How? (Chest pain, USA, AR, pneumonia, PE, COPD, DKA, ARF, appy, cholecystitis, CVA, Diverticulitis, Homicidal, Suicidal, threat to staff... and all critical care pts) @ -No - Lab Data Result diagrams: 03/05/22 00:12 03/05/22 00:12 Lab Results 03/05/22 03/05/22 03/05/22 Range/Units 00:12 00:12 00:12 WBC 5.1 (3.8-10.6) k/uL RBC 4.78 (3.80-5.40) m/uL Hgb 14.1 (11.4-16.0) gm/dL Hct 43.1 (34.0-46.0) % MCV 90.0 (80.0-100.0) fL MCH 29.6 (25.0-35.0) pg MCHC 32.8 (31.0-37.0) g/dL RDW 13.5 (11.5-15.5) % Plt Count 206 (150-450) k/uL MPV 7.3 Neutrophils % 57 % Lymphocytes % 31 % Monocytes % 6 % Eosinophils % 3 % Basophils % 0 % Neutrophils # 2.9 (1.3-7.7) k/uL Lymphocytes # 1.6 (1.0-4.8) k/uL Monocytes # 0.3 (0-1.0) k/uL Eosinophils # 0.1 (0-0.7) k/uL Basophils # 0.0 (0-0.2) k/uL Sodium 140 (137-145) mmol/L Potassium 4.0 (3.5-5.1) mmol/L Chloride 108 H (98-107) mmol/L Carbon Dioxide 26 (22-30) mmol/L Anion Gap 6 mmol/L BUN 27 H (7-17) mg/dL Creatinine 0.67 (0.52-1.04) mg/dL Est GFR (CKD-EPI)AfAm >90 (>60 ml/min/1.73 sqM) Est GFR (CKD-EPI)NonAf 87 (>60 ml/min/1.73 sqM) Glucose 106 H (74-99) mg/dL Calcium 9.2 (8.4-10.2) mg/dL Magnesium 2.1 (1.6-2.3) mg/dL Total Bilirubin 0.4 (0.2-1.3) mg/dL AST 34 (14-36) U/L ALT 36 H (4-34) U/L Alkaline Phosphatase 61 (38-126) U/L Troponin I <0.012 (0.000-0.034) ng/mL NT-Pro-B Natriuret Pep pg/mL Total Protein 6.7 (6.3-8.2) g/dL Albumin 4.2 (3.5-5.0) g/dL 03/05/22 Range/Units 00:12 WBC (3.8-10.6) k/uL RBC (3.80-5.40) m/uL Hgb (11.4-16.0) gm/dL Hct (34.0-46.0) % MCV (80.0-100.0) fL MCH (25.0-35.0) pg MCHC (31.0-37.0) g/dL RDW (11.5-15.5) % Plt Count (150-450) k/uL MPV Neutrophils % % Lymphocytes % % Monocytes % % Eosinophils % % Basophils % % Neutrophils # (1.3-7.7) k/uL Lymphocytes # (1.0-4.8) k/uL Monocytes # (0-1.0) k/uL Eosinophils # (0-0.7) k/uL Basophils # (0-0.2) k/uL Sodium (137-145) mmol/L Potassium (3.5-5.1) mmol/L Chloride (98-107) mmol/L Carbon Dioxide (22-30) mmol/L Anion Gap mmol/L BUN (7-17) mg/dL Creatinine (0.52-1.04) mg/dL Est GFR (CKD-EPI)AfAm (>60 ml/min/1.73 sqM) Est GFR (CKD-EPI)NonAf (>60 ml/min/1.73 sqM) Glucose (74-99) mg/dL Calcium (8.4-10.2) mg/dL Magnesium (1.6-2.3) mg/dL Total Bilirubin (0.2-1.3) mg/dL AST (14-36) U/L ALT (4-34) U/L Alkaline Phosphatase (38-126) U/L Troponin I (0.000-0.034) ng/mL NT-Pro-B Natriuret Pep 563 pg/mL Total Protein (6.3-8.2) g/dL Albumin (3.5-5.0) g/dL Disposition Clinical Impression: Hypertensive urgency Disposition: HOME SELF-CARE Condition: Stable Instructions (If sedation given, give patient instructions): Chronic Hypertension (DC) Is patient prescribed a controlled substance at d/c from ED?: No Referrals: Jesse Combs DO [Primary Care Provider] - 1-2 days Time of Disposition: 01:00
[2022-03-05] MEDS ORDERED: hydrALAZINE HCL 20 MG/ML 1 ML VIAL IVP STA (00:07)
[2022-03-05 00:28] LABS: Basophils % (A) 0 %; Eosinophils # (A) 0.1 k/uL (0-0.7); Eosinophils % (A) 3 %; HCT 43.1 % (34.0-46.0); HGB 14.1 gm/dL (11.4-16.0); Lymphocytes # (A) 1.6 k/uL (1.0-4.8); Lymphocytes % (A) 31 %; MCH 29.6 pg (25.0-35.0); MCHC 32.8 g/dL (31.0-37.0); Mean Platelet Volume 7.3; Monocytes # (A) 0.3 k/uL (0-1.0); Monocytes % (A) 6 %; Neutrophils # (A) 2.9 k/uL (1.3-7.7); Neutrophils % (A) 57 %; Platelet Count 206 k/uL (150-450); RBC 4.78 m/uL (3.80-5.40); RDW 13.5 % (11.5-15.5); WBC 5.1 k/uL (3.8-10.6)
--- NOTE | 2022-03-05 00:39 | XR ---
EXAMINATION TYPE: XR chest 2V DATE OF EXAM: 03/05/2022 COMPARISON: 07/04/2020 HISTORY: Hypertension TECHNIQUE: 2 views FINDINGS: Heart and mediastinum are normal. Lungs are clear. Diaphragm is normal. Bony thorax appears normal. IMPRESSION: Normal chest. No change.
[2022-03-05 00:56] LABS: ALT 36 U/L (4-34); AST 34 U/L (14-36); African American GFR (CKD) >90 (>60 ml/min/1.73 sqM); Albumin 4.2 g/dL (3.5-5.0); Alkaline Phosphatase 61 U/L (38-126); Anion Gap 6 mmol/L; Blood Urea Nitrogen 27 mg/dL (7-17); Calcium 9.2 mg/dL (8.4-10.2); Carbon Dioxide 26 mmol/L (22-30); Chloride 108 mmol/L (98-107); Glucose 106 mg/dL (74-99); Magnesium 2.1 mg/dL (1.6-2.3); Non-African American GFR(CKD) 87 (>60 ml/min/1.73 sqM); Sodium 140 mmol/L (137-145); Total Bilirubin 0.4 mg/dL (0.2-1.3); Total Protein 6.7 g/dL (6.3-8.2)
[2022-03-05 00:59] VITALS: RESP 12
[2022-03-05 01:08] VITALS: BP 131/59; PULSE 84
== END 2022-03-05 02:23 | disposition home or self-care (01) ==
LOC: EC 23:25
DX: I16.0 Hypertensive urgency (principal); K21.9 Gastro-esophageal reflux disease without esophagitis; M19.90 Unspecified osteoarthritis, unspecified site; G47.30 Sleep apnea, unspecified; Z79.1 Long term (current) use of non-steroidal anti-inflammatories (NSAID); Z79.899 Other long term (current) drug therapy; Z88.1 Allergy status to other antibiotic agents; Z88.2 Allergy status to sulfonamides
CPT/HCPCS: 36415; 93005; 83880; 80053; 83735; 84484; 85025; 71046; 99284; 96374; J0360

== ENCOUNTER → 2022-09-18 | Outpatient (CLI) | payer MEDICARE ==
[2022-09-18 09:29] VITALS: BP 146/75; PULSE 73; RESP 18; TEMP 98.1
--- NOTE | 2022-09-18 10:05 | P.PN ---
Subjective Progress Note Date: 09/18/22 [id number]; left breast invasive ductal cancer; stage IB; left breast 07-19-2019 11-01-21 She underwent a left breast lumpectomy and sentinel biopsy on 6919. Pathology showed margins were negative for cancer. Lymph nodes were negative for cancer. Greatest dimension of the tumor was 9 mm. She has done well postoperatively and was seen by medical and radiation oncology. She opted to undergo radiation therapy but no hormonal or chemotherapy. She completed radiation therapy on September 17, 2019. Her most recent bilateral mammogram was in which was benign BIRADS 2. At this time the patient is not complaining of the lumps masses or nodules of concern in either breast. 09-18-22 Patient is doing well at this time with no complaints of any new lumps masses or nodules of concern in either breast. Caffeine: Approximately three quarters cup of coffee/ day The patient does not smoke and is not exposed to secondhand smoke The patient eats chocolate dark chocolate/small piece daily she does not take any hormones or hormone therapy Hormonal History: menarche:10 , breast fed: none, age at first : 16 menopause: 48 BCP: 3 years hormones: none Surgical history: 1. Bilateral cataract 2. Eyelid 2. Tonsils 3. 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 HTN Social history: Smoke: Negative Alcohol: Occasional Drugs: Negative - Constitutional Constitutional: Reports sweats, Denies chills, Denies fever - EENT Eyes: denies blurred vision, denies pain Ears: bilateral: decreased hearing, tinnitus Ears, nose, mouth and throat: Denies headache, Denies sore throat - Breasts Breasts: bilateral: as per HPI - Cardiovascular Cardiovascular: Denies chest pain, Denies shortness of breath - Respiratory Respiratory: Denies cough - Gastrointestinal Gastrointestinal: Denies abdominal pain, Denies diarrhea, Denies nausea, Denies vomiting - Genitourinary (Female) Genitourinary: Denies dysuria, Denies hematuria - Menstruation Menstruation: Reports postmenopausal - Musculoskeletal Comment: arthritis - Integumentary Integumentary: Denies pruritus, Denies rash - Neurological Neurological: Denies numbness, Denies weakness - Psychiatric Psychiatric: Denies anxiety, Denies depression - Endocrine Endocrine: Denies fatigue, Denies weight change - Hematologic/Lymphatic Comment: none - Allergic/Immunologic Allergic/Immunologic: Reports as per HPI Objective - Vital Signs Vital signs: Vital Signs Temp 98.1 F 09/18/22 09:25 Pulse 73 09/18/22 09:25 Resp 18 09/18/22 09:25 BP 146/75 09/18/22 09:25 Pulse Ox 97 09/18/22 09:25 FiO2 Intake & Output 09/17/22 09/18/22 09/18/22 18:59 06:59 18:59 Weight 75.75 kg - Constitutional General appearance: Present: cooperative - EENT Eyes: Present: EOMI ENT: Present: hearing grossly normal - Neck Neck: Present: normal ROM - Respiratory Respiratory: bilateral: CTA - Cardiovascular Rhythm: regular Heart sounds: normal: S1, S2 - Integumentary Integumentary: Present: normal turgor - Musculoskeletal Musculoskeletal: Present: gait normal - Psychiatric Psychiatric: Present: A&O x's 3, appropriate affect, intact judgment & insight - Additional findings Additional findings: Breast Exam: BRA: 36C Inspection: Postprocedure changes left breast, reduction mammoplasty Palpation: Right breast: multi positional exam no dominant masses or nodules of concern Right axilla: No adenopathy of concern Left breast: Multi-positional exam fibrocystic changes, post surgical changes, no dominant masses or nodules of concern Left axilla: No adenopathy of concern Assessment and Plan Assessment: Impression: Left breast stage IB invasive ductal carcinoma status post lumpectomy and sentinel node biopsy patient opted for no chemo hormonal therapy but did complete radiation therapy No evidence of recurrent cancer at this time bilateral mammogram March 19, 2022 BIRAD 2 Plan: Bilateral mammogram March 2023 follow up after mammogram follow up sooner if any concerns CC: Dr. Combs
== END ==
LOC: WWCWWP 08:47
PROVIDERS: ATTEND Surgery
DX: D05.12 Intraductal carcinoma in situ of left breast (principal); Z90.12 Acquired absence of left breast and nipple; I10 Essential (primary) hypertension; Z92.3 Personal history of irradiation; Z17.1 Estrogen receptor negative status [ER-]; Z88.1 Allergy status to other antibiotic agents; Z88.2 Allergy status to sulfonamides

== ENCOUNTER → 2023-03-20 | Outpatient (CLI) | payer MEDICARE ==
--- NOTE | 2023-03-20 12:07 | MM ---
Reason for Exam: Additional evaluation requested from prior study. Last screening mammogram was performed 12 month(s) ago. Patient History: Menarche at age 11. First Full-Term at age 16. Postmenopausal. Breast cancer, left, age 69. Previous chest radiation therapy. Estrogen for 3 years from age 58 until age 61. 07/19/2019, Lumpectomy on the Left side. 07/19/2019, Malignant Core Biopsy on the left side. 07/06/2019, Malignant Core Biopsy on the left side. Tissue Density: The breast tissue is heterogeneously dense. This may lower the sensitivity of mammography. Findings: Analyzed By CAD. Postoperative distortion left breast. No evidence for mass. No suspicious consultations present. Overall Assessment: Benign, BI-RAD 2 Management: Diagnostic Mammogram of both breasts in 1 year. . Results were given to the patient verbally at the time of exam. Patient should continue monthly self-breast exams. A clinical breast exam by your physician is recommended on an annual basis. This exam should not preclude additional follow-up of suspicious palpable abnormalities. Note on Debbie scores and lifetime risk: 1. A Debbie score greater than 3% is considered moderate risk. If this is the case, consider specialist referral to assess eligibility for a risk reducing agent. 2. If overall lifetime risk for the development of breast cancer is 20% or higher, the patient may qualify for future screening with alternating mammogram and breast MRI. Electronically signed and approved by: Jez Correia M.D. Radiologis
== END | disposition home or self-care (01) ==
LOC: RADMAMWWP 11:27
PROVIDERS: ATTEND Surgery
DX: R92.333 Mammographic heterogeneous density, bilateral breasts (principal); Z78.0 Asymptomatic menopausal state; Z85.3 Personal history of malignant neoplasm of breast
CPT/HCPCS: 77066; G0279; 77062

== ENCOUNTER → 2023-03-27 | Outpatient (CLI) | payer MEDICARE ==
--- NOTE | 2023-03-27 13:30 | P.PN ---
Subjective Progress Note Date: 03/27/23 09/18/22 [id number]; left breast invasive ductal cancer; stage IB; left breast 07-19-2019 11-01-21 She underwent a left breast lumpectomy and sentinel biopsy on 6919. Pathology showed margins were negative for cancer. Lymph nodes were negative for cancer. Greatest dimension of the tumor was 9 mm. She has done well postoperatively and was seen by medical and radiation oncology. She opted to undergo radiation therapy but no hormonal or chemotherapy. She completed radiation therapy on September 17, 2019. Her most recent bilateral mammogram was in which was benign BIRADS 2. At this time the patient is not complaining of the lumps masses or nodules of concern in either breast. 09-18-22 Patient is doing well at this time with no complaints of any new lumps masses or nodules of concern in either breast. 03-27-23 Bilateral mammogram personally reviewed 03-20-23 BIRAD 2 She is not complaining of any new lumps masses or nodules in either breast. Caffeine: Approximately three quarters cup of coffee/ day The patient does not smoke and is not exposed to secondhand smoke The patient eats chocolate dark chocolate/small piece daily she does not take any hormones or hormone therapy Hormonal History: menarche:10 , breast fed: none, age at first : 16 menopause: 48 BCP: 3 years hormones: none Surgical history: 1. Bilateral cataract 2. Eyelid 2. Tonsils 3. 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 HTN Social history: Smoke: Negative Alcohol: Occasional Drugs: Negative - Constitutional Constitutional: Reports sweats, Denies chills, Denies fever - EENT Eyes: denies blurred vision, denies pain Ears: bilateral: decreased hearing, tinnitus Ears, nose, mouth and throat: Denies headache, Denies sore throat - Breasts Breasts: bilateral: as per HPI - Cardiovascular Cardiovascular: Denies chest pain, Denies shortness of breath - Respiratory Respiratory: Denies cough - Gastrointestinal Gastrointestinal: Denies abdominal pain, Denies diarrhea, Denies nausea, Denies vomiting - Genitourinary (Female) Genitourinary: Denies dysuria, Denies hematuria - Menstruation Menstruation: Reports postmenopausal - Musculoskeletal Comment: arthritis - Integumentary Integumentary: Denies pruritus, Denies rash - Neurological Neurological: Denies numbness, Denies weakness - Psychiatric Psychiatric: Denies anxiety, Denies depression - Endocrine Endocrine: Denies fatigue, Denies weight change - Hematologic/Lymphatic Comment: none - Allergic/Immunologic Allergic/Immunologic: Reports as per HPI Objective - Constitutional General appearance: Present: cooperative - EENT Eyes: Present: EOMI ENT: Present: hearing grossly normal - Neck Neck: Present: normal ROM - Respiratory Respiratory: bilateral: CTA - Cardiovascular Heart sounds: normal: S1, S2 - Gastrointestinal General gastrointestinal: Present: soft - Integumentary Integumentary: Present: normal turgor - Musculoskeletal Musculoskeletal: Present: gait normal - Psychiatric Psychiatric: Present: A&O x's 3, appropriate affect, intact judgment & insight - Additional findings Additional findings: Breast Exam: BRA: 36C Inspection: Postprocedure changes left breast, reduction mammoplasty Palpation: Right breast: multi positional exam no dominant masses or nodules of concern Right axilla: No adenopathy of concern Left breast: Multi-positional exam fibrocystic changes, post surgical changes, no dominant masses or nodules of concern Left axilla: No adenopathy of concern Assessment and Plan Assessment: Impression: Left breast stage Ib invasive ductal carcinoma status postlumpectomy and sentinel node biopsy Patient opted for no chemo or hormonal therapy but did complete radiation therapy No evidence of recurrent cancer on physical exam or on bilateral mammogram at this time; 03-20-23 Plan: Follow-up 6 months Bilateral mammogram 1 year March 2024 Follow-up sooner any questions or concerns CC: Dr. Combs
[2023-03-27 13:33] VITALS: BP 175/84; PULSE 88; RESP 17; TEMP 98.9
== END ==
LOC: WWCWWP 12:33
PROVIDERS: ATTEND Surgery
DX: I10 Essential (primary) hypertension (principal); Z85.3 Personal history of malignant neoplasm of breast; Z92.3 Personal history of irradiation; Z88.1 Allergy status to other antibiotic agents; Z88.2 Allergy status to sulfonamides; Z79.899 Other long term (current) drug therapy

== ENCOUNTER → 2023-10-16 | Outpatient (CLI) | payer MEDICARE ==
[2023-10-16 15:03] VITALS: BP 153/81; PULSE 75; RESP 16; TEMP 98.4
--- NOTE | 2023-10-16 15:08 | P.PN ---
Subjective Progress Note Date: 10/16/23 Principal diagnosis: [id number]; left breast invasive ductal cancer; stage IB; left breast 07-19-2019 10-16-23 [id number]; left breast invasive ductal cancer; stage IB; left breast 07-19-2019 11-01-21 She underwent a left breast lumpectomy and sentinel biopsy on [id number]. Pathology showed margins were negative for cancer. Lymph nodes were negative for cancer. Greatest dimension of the tumor was 9 mm. She has done well postoperatively and was seen by medical and radiation oncology. She opted to undergo radiation therapy but no hormonal or chemotherapy. She completed radiation therapy on September 17, 2019. Her most recent bilateral mammogram was in which was benign BIRADS 2. At this time the patient is not complaining of the lumps masses or nodules of concern in either breast. 09-18-22 Patient is doing well at this time with no complaints of any new lumps masses or nodules of concern in either breast. 03-27-23 Bilateral mammogram personally reviewed 03-20-23 BIRAD 2 She is not complaining of any new lumps masses or nodules in either breast. 10-16-23 She is not complaining of any new lumps masses or nodules of concern in either breast Caffeine: Approximately three quarters cup of coffee/ day The patient does not smoke and is not exposed to secondhand smoke The patient eats chocolate dark chocolate/small piece daily she does not take any hormones or hormone therapy Hormonal History: menarche:10 , breast fed: none, age at first : 16 menopause: 48 BCP: 3 years hormones: none Surgical history: 1. Bilateral cataract 2. Eyelid 2. Tonsils 3. 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 HTN Social history: Smoke: Negative Alcohol: Occasional Drugs: Negative - Constitutional Constitutional: Reports sweats, Denies chills, Denies fever - EENT Eyes: denies blurred vision, denies pain Ears: bilateral: decreased hearing, tinnitus Ears, nose, mouth and throat: Denies headache, Denies sore throat - Breasts Breasts: bilateral: as per HPI - Cardiovascular Cardiovascular: Denies chest pain, Denies shortness of breath - Respiratory Respiratory: Denies cough - Gastrointestinal Gastrointestinal: Denies abdominal pain, Denies diarrhea, Denies nausea, Denies vomiting - Genitourinary (Female) Genitourinary: Denies dysuria, Denies hematuria - Menstruation Menstruation: Reports postmenopausal - Musculoskeletal Comment: arthritis - Integumentary Integumentary: Denies pruritus, Denies rash - Neurological Neurological: Denies numbness, Denies weakness - Psychiatric Psychiatric: Denies anxiety, Denies depression - Endocrine Endocrine: Denies fatigue, Denies weight change - Hematologic/Lymphatic Comment: none - Allergic/Immunologic Allergic/Immunologic: Reports as per HPI Objective - Constitutional General appearance: Present: cooperative - EENT Eyes: Present: EOMI ENT: Present: hearing grossly normal - Neck Neck: Present: normal ROM - Respiratory Respiratory: bilateral: CTA - Cardiovascular Rhythm: regular Heart sounds: normal: S1, S2 - Integumentary Integumentary: Present: normal turgor - Musculoskeletal Musculoskeletal: Present: gait normal - Psychiatric Psychiatric: Present: A&O x's 3, appropriate affect, intact judgment & insight - Additional findings Additional findings: Breast Exam: BRA: 36C Inspection: Postprocedure changes left breast, reduction mammoplasty Palpation: Right breast: multi positional exam no dominant masses or nodules of concern Right axilla: No adenopathy of concern Left breast: Multi-positional exam fibrocystic changes, post surgical changes, no dominant masses or nodules of concern Left axilla: No adenopathy of concern Assessment and Plan Assessment: Impression: Left breast stage Ib invasive ductal carcinoma status postlumpectomy and sentinel node biopsy Patient opted for no chemo or hormonal therapy but did complete radiation therapy No evidence of recurrent cancer on physical exam or on bilateral mammogram at this time; 03-20-23 Plan: Bilateral mammogram March 2024 appointment at that time Follow-up sooner any questions or concerns CC: Dr. Combs
== END ==
LOC: WWCWWP 14:26
PROVIDERS: ATTEND Surgery
DX: Z48.817 Encounter for surgical aftercare following surgery on the skin and subcutaneous tissue (principal); C50.912 Malignant neoplasm of unspecified site of left female breast; Z92.3 Personal history of irradiation; Z17.1 Estrogen receptor negative status [ER-]; Z88.1 Allergy status to other antibiotic agents; Z88.2 Allergy status to sulfonamides